=== PATIENT | female | born 1970 | race African-American/Black ===

== ENCOUNTER 2016-12-27 20:38 | Emergency (ER) | payer OTHER ==
[~2016-12-27] VITALS: Ht 162.6 cm; Wt 108.9 kg
[~2016-12-27 20:38] MED LIST: ALBU18HF IH; AZIT250T PO; CLON2TAB2 PO; CYCL-331 PO; DICY20TA30 PO; DIPH25CA58 PO; ESTR0.5T PO; GABA-585 PO; HYDR-971 PO; LISI1TAB5 PO; PANT40TA3 PO; PERM324. MC; PRED20TA PO; PRED50TA PO; PROM118S2 PO; SULF1TAB23 PO
--- NOTE | 2016-12-27 20:59 | ED.ADGEN ---
Past History Past Medical History: Anxiety, Asthma, Bipolar, Depression, GERD, Hypertension , Other Past Surgical History: Appendectomy, Cholecystectomy, Hysterectomy, Other Alcohol Use: None Drug Use: None Adult General Chief Complaint Chief Complaint " I got this sore spot on my abdomen.. down here on Lt. " and I ve just felt off today.." Mrs. Paz Hernandez is a 46 yr old female with an abrasion on panus on Lt.. Pt. reports episodes of diarrhea and malaise, and nausea. Pt. denies any travel, ill contacts or trauma. Patient normally follows with Dr. Kaela Hernandez patient has chronic problems with anxiety, asthma, bipolar disorder, depression, GERD, hypertension, and chronic fibromyalgia pain. Patient has had previous hysterectomy and cholecystectomy. Patient reports history of immunosuppression. Patient follows with Dr. Kaela Hernandez HPI HPI Patient is a 46 year old female who presents with above hx and complaints. Review of Systems Review of Systems Constitutional: Subjective complaints of fever or chills [] Eyes: Denies change in visual acuity, redness, or eye pain [] HENT: Denies nasal congestion or sore throat [] Respiratory: Denies cough or shortness of breath [] Cardiovascular: No additional information not addressed in HPI [] GI: Plaints of generalized abdominal pain, and diarrhea [] : Denies dysuria or hematuria [] Musculoskeletal: Complaints of generalized malaise and myalgia, chronic back pain or joint pain [] Integument: Denies rash or skin lesions [] Neurologic: Denies headache, focal weakness or sensory changes [] Endocrine: Denies polyuria or polydipsia [] Family History Family History Noncontributory Current Medications Current Medications Current Medications Medications (Trade) Dose Ordered Sig/Jennifer Start Time Stop Time Status Last Admin Dose Admin Famotidine (Pepcid) 20 mg 1X ONCE 12/27/16 21:30 12/27/16 21:31 DC 12/27/16 21:50 20 MG Ketorolac Tromethamine (Toradol) 30 mg 1X ONCE 12/27/16 21:30 12/27/16 21:31 DC 12/27/16 21:49 30 MG Ondansetron HCl (Zofran) 8 mg 1X ONCE 12/27/16 21:30 12/27/16 21:31 DC 12/27/16 21:50 8 MG Orphenadrine Citrate (Norflex) 60 mg 1X ONCE 12/27/16 21:30 12/27/16 21:31 DC 12/27/16 21:54 60 MG Potassium Chloride (KCl Oral Soln) 40 meq 1X ONCE 12/27/16 22:45 12/27/16 22:46 DC 12/27/16 22:45 40 MEQ Sodium Chloride 1,000 ml @ 1,000 mls/hr Q1H 12/27/16 21:30 12/27/16 22:29 DC 12/27/16 21:49 1,000 MLS/HR Allergies Allergies Allergies Coded Allergies Type Severity Reaction Last Updated Verified hydrocodone Allergy Intermediate rash 08/18/16 Yes oxycodone Allergy Intermediate hives/itch/and n/v. 07/03/15 Yes tramadol Allergy Intermediate hives 07/03/15 Yes codeine Allergy Unknown 01/19/16 Yes Physical Exam Physical Exam Constitutional: Obese middle-aged lady with, not in acute distress, non-toxic appearance. [] HENT: Normocephalic, atraumatic, bilateral external ears normal, oropharynx moist, no oral exudates, nose normal. [] Eyes: PERRLA, EOMI, conjunctiva normal, no discharge. [] Neck: Normal range of motion, no tenderness, supple, no stridor. [] Cardiovascular:Heart rate regular rhythm, no murmur [] Lungs & Thorax: Bilateral breath sounds equal with scattered wheezes auscultation [] Abdomen: Bowel sounds normal, soft, no tenderness, no masses, no pulsatile masses. [Obese. Old surgery scars. Abraded area at left pannus-appears to be rubbed by her pants or a belted Skin: Warm, dry, no erythema, no rash. [] Back: No tenderness, no CVA tenderness. [] Extremities: No tenderness, no cyanosis, no clubbing, ROM intact, trace ankle edema. [] Neurologic: Alert and oriented X 3, normal motor function, normal sensory function, no focal deficits noted. [] Psychologic: Affect anxious judgement normal, mood normal. [] Current Patient Data Lab Results Laboratory Tests Test 12/27/16 21:40 White Blood Count 5.5 x10^3/uL (4.0-11.0) Red Blood Count 4.57 x10^6/uL (3.50-5.40) Hemoglobin 13.3 g/dL (12.0-15.5) Hematocrit 38.5 % (36.0-47.0) Mean Corpuscular Volume 84 fL (79-100) Mean Corpuscular Hemoglobin 29 pg (25-35) Mean Corpuscular Hemoglobin Concent 35 g/dL (31-37) Red Cell Distribution Width 14.6 % (11.5-14.5) H Platelet Count 277 x10^3/uL (140-400) Neutrophils (%) (Auto) 50 % (31-73) Lymphocytes (%) (Auto) 40 % (24-48) Monocytes (%) (Auto) 7 % (0-9) Eosinophils (%) (Auto) 3 % (0-3) Basophils (%) (Auto) 1 % (0-3) Neutrophils # (Auto) 2.7 x10^3uL (1.8-7.7) Lymphocytes # (Auto) 2.2 x10^3/uL (1.0-4.8) Monocytes # (Auto) 0.4 x10^3/uL (0.0-1.1) Eosinophils # (Auto) 0.1 x10^3/uL (0.0-0.7) Basophils # (Auto) 0.1 x10^3/uL (0.0-0.2) Prothrombin Time 10.2 SEC (9.4-11.4) Prothrombin Time INR 1.0 (0.9-1.1) PTT 28 SEC (23-33) Urine Collection Type Unknown Urine Color Yellow Urine Clarity Clear Urine pH 7.0 Urine Specific [place] 1.015 Urine Protein Neg (NEG-TRACE) Urine Glucose (UA) Neg mg/dL (NEG) Urine Ketones (Stick) Neg mg/dL (NEG) Urine Blood Trace (NEG) Urine Nitrite Neg (NEG) Urine Bilirubin Neg (NEG) Urine Urobilinogen Dipstick 0.2 mg/dL (0.2 mg/dL) Urine Leukocyte Esterase Neg (NEG) Urine RBC Occ /HPF (0-2) Urine WBC Occ /HPF (0-4) Urine Squamous Epithelial Cells Mod /LPF Urine Bacteria Few /HPF (0-FEW) Sodium Level 141 mmol/L (136-145) Potassium Level 3.0 mmol/L (3.5-5.1) L Chloride Level 102 mmol/L (98-107) Carbon Dioxide Level 29 mmol/L (21-32) Anion Gap 10 (6-14) Blood Urea Nitrogen 15 mg/dL (7-20) Creatinine 1.1 mg/dL (0.6-1.0) H Estimated GFR (Cockcroft-Gault) 65.0 BUN/Creatinine Ratio 14 (6-20) Glucose Level 95 mg/dL (70-99) Calcium Level 8.9 mg/dL (8.5-10.1) Total Bilirubin 0.2 mg/dL (0.2-1.0) Aspartate Amino Transferase (AST) 15 U/L (15-37) Alanine Aminotransferase (ALT) 24 U/L (14-59) Alkaline Phosphatase 75 U/L (46-116) Total Protein 8.3 g/dL (6.4-8.2) H Albumin 3.5 g/dL (3.4-5.0) Albumin/Globulin Ratio 0.7 (1.0-1.7) L Urine Opiates Screen Neg (NEG) Urine Methadone Screen Neg (NEG) Urine Barbiturates Neg (NEG) Urine Phencyclidine Screen Neg (NEG) Urine Amphetamine/Methamphetamine Neg (NEG) Urine Benzodiazepines Screen Neg (NEG) Urine Cocaine Screen Neg (NEG) Urine Cannabinoids Screen Neg (NEG) Urine Ethyl Alcohol Neg (NEG) EKG EKG [] Radiology/Procedures Radiology/Procedures My interpretation of acute abdomen film shows previous surgical clips. Nonspecific bowel gas pattern. No free air under the diaphragm.[] Course & Med Decision Making Course & Med Decision Making Pertinent Labs and Imaging studies reviewed. (See chart for details) Patient maintain a clear fluid diet for 48 hours. No solid or milk products clear fluids only push fruit juices. Follow-up primary care. Take over-the- counter Tylenol and ibuprofen. Return if any concerns. [] Final Impression Final Impression 1. Viral syndrome 2. Hypokalemia[] Problems: Dragon Disclaimer Dragon Disclaimer This electronic medical record was generated, in whole or in part, using a voice recognition dictation system. VALORIE HUGHES MD Dec 27, 2016 20:59
[2016-12-27] MEDS ORDERED: KETOROLAC 30 MG/ML VIAL. IV ONE (21:30)
[2016-12-27] MEDS ORDERED: IV NORMAL SALINE 1,000ML 1,000 ML IV SCH (21:30)
[2016-12-27] MEDS ORDERED: FAMOTIDINE 20 MG/2 ML VIAL IVP ONE (21:30)
[2016-12-27] MEDS ORDERED: ONDANSETRON PF 4 MG/2 ML VIAL. IV ONE (21:30)
[2016-12-27] MEDS ORDERED: ORPHENADRINE CITRATE 60 MG/2 ML VIAL. IM ONE (21:30)
[2016-12-27 22:14] LABS: BASO # 0.1 x10^3/uL (0.0-0.2); BASO % 1 % (0-3); EOS # 0.1 x10^3/uL (0.0-0.7); EOS % 3 % (0-3); HEMATOCRIT 38.5 % (36.0-47.0); HEMOGLOBIN 13.3 g/dL (12.0-15.5); LYMPH # 2.2 x10^3/uL (1.0-4.8); LYMPH % 40 % (24-48); MEAN CORPUSCULAR HEMOGLOBIN 29 pg (25-35); MEAN CORPUSCULAR HGB CONC 35 g/dL (31-37); MEAN CORPUSCULAR VOLUME 84 fL (79-100); MONO # 0.4 x10^3/uL (0.0-1.1); MONO % 7 % (0-9); NEUT # 2.7 x10^3uL (1.8-7.7); NEUT % 50 % (31-73); PLATELET COUNT 277 x10^3/uL (140-400); RED BLOOD COUNT 4.57 x10^6/uL (3.50-5.40); RED CELL DISTRIBUTION WIDTH 14.6 % (11.5-14.5); WHITE BLOOD COUNT 5.5 x10^3/uL (4.0-11.0)
[2016-12-27 22:16] LABS: ALBUMIN 3.5 g/dL (3.4-5.0); ALBUMIN/GLOBULIN RATIO 0.7 (1.0-1.7); AMPHETAMINE/METHAMPHETAMINE NEG (NEG); BARBITURATES NEG (NEG); BENZODIAZEPINES NEG (NEG); CALCIUM 8.9 mg/dL (8.5-10.1); CANNABINOIDS NEG (NEG); COCAINE NEG (NEG); CREATININE 1.1 mg/dL (0.6-1.0); METHADONE NEG (NEG); OPIATES NEG (NEG); PHENCYCLIDINE NEG (NEG); TOTAL BILIRUBIN 0.2 mg/dL (0.2-1.0); TOTAL PROTEIN 8.3 g/dL (6.4-8.2)
[2016-12-27 22:41] LABS: BILIRUBIN,URINE NEG (NEG); CLARITY,URINE CLEAR; COLOR,URINE YELLOW; GLUCOSE,URINE NEG (NEG)
[2016-12-27 22:42] LABS: NITRITE,URINE NEG (NEG); UROBILINOGEN,URINE 0.2 mg/dL (0.2 mg/dL)
[2016-12-27 22:43] LABS: BACTERIA,URINE FEW /HPF (0-FEW); RBC,URINE OCC /HPF (0-2); SQUAMOUS EPITHELIAL CELL,UR MOD /LPF; WBC,URINE OCC /HPF (0-4)
[2016-12-27 22:45] VITALS: BP 142/86
[2016-12-27] MEDS ORDERED: POTASSIUM CHLORIDE 20 MEQ/15 ML ORAL LIQUID. PO ONE (22:45)
--- NOTE | 2016-12-28 08:38 | RAD ---
Acute abdominal series with single view chest 12/27/2016 Indication: Left-sided chest pain and abdominal pain Comparison: Abdominal radiograph 02/10/2014, 01/25/2009 Technique: Frontal view the chest, upright view the abdomen and a supine view the abdomen are provided. Findings: The cardiomediastinal silhouette is within normal limits. There are no pleural effusions. No pulmonary vascular congestion is noted. There is no pneumothorax. The lungs are clear. There is no free intraperitoneal air. Cholecystectomy clips are identified in the right upper quadrant. No evidence for organomegaly. Small and large bowel loops are normal in caliber. No suspicious calcifications are identified. Phleboliths are identified within the pelvis. No differential air-fluid levels are noted. Visualized osseous structures are within normal limits. Impression: 1. No acute cardiac pulmonary process. 2. Nonobstructive bowel gas pattern.
== END 2016-12-27 23:08 | disposition home or self-care (01) ==
LOC: ER 20:38
DX: B34.9 Viral infection, unspecified (principal); E87.6 Hypokalemia; K21.9 Gastro-esophageal reflux disease without esophagitis; I10 Essential (primary) hypertension; J45.909 Unspecified asthma, uncomplicated; M79.7 Fibromyalgia; Z90.49 Acquired absence of other specified parts of digestive tract; Z90.710 Acquired absence of both cervix and uterus; Z88.5 Allergy status to narcotic agent; Z88.6 Allergy status to analgesic agent
CPT/HCPCS: 36415; 74022; 80053; 80307; 81001; 85025; 85610; 85730; 96361; 96372; 96374; 96375; 99285; J1885; J2360; J2405; S0028; G0479; J7030

== ENCOUNTER 2017-03-19 19:37 | Emergency (ER) | payer OTHER ==
[~2017-03-19] VITALS: Ht 162.6 cm; Wt 100.7 kg
[2017-03-19 19:37] VITALS: BP 136/85
[2017-03-19 20:28] LABS: BILIRUBIN,URINE NEG (NEG); CLARITY,URINE CLEAR; COLOR,URINE YELLOW; GLUCOSE,URINE NEG (NEG); UROBILINOGEN,URINE 0.2 mg/dL (0.2 mg/dL)
[2017-03-19 20:29] LABS: BACTERIA,URINE FEW /HPF (0-FEW); NITRITE,URINE NEG (NEG); RBC,URINE OCC /HPF (0-2); SQUAMOUS EPITHELIAL CELL,UR FEW /LPF; WBC,URINE OCC /HPF (0-4)
[2017-03-19] MEDS ORDERED: KETOROLAC 60 MG/2 ML VIAL. IM ONE (21:15)
[2017-03-19] MEDS ORDERED: ORPHENADRINE CITRATE 60 MG/2 ML VIAL. IM ONE (21:15)
[2017-03-19] MEDS ORDERED: ORPH-16 PO (21:18)
[2017-03-19] MEDS ORDERED: NAPR-677 PO (21:18)
--- NOTE | 2017-03-19 21:18 | PHYS DOC ---
Past History Past Medical History: Anxiety, Asthma, Bipolar, Depression, GERD, Hypertension , Other Past Surgical History: Appendectomy, Cholecystectomy, Hysterectomy, Other Additional Smoking Information: Vapes Alcohol Use: None Drug Use: None Adult General Chief Complaint Chief Complaint: BACK PAIN - NO INJURY HPI HPI Patient is a 46 year old female who presents with left back stain. Her disabled parents have moved in with her and she was helping them at home and 2 days pulled her left back. She has had pain since. No rash. No fever. No urinary complaints. No nausea vomiting or diarrhea. No chest pain, difficulty breathing. No recent fever or illness or cough. No recent travel. No shortness of air. No saddle anesthesia; no numbness, tingling or weakness of upper or lower extremities, no bowel or bladder incontinence or changes. Review of Systems Review of Systems Constitutional: Denies fever or chills Eyes: Denies change in visual acuity, redness, or eye pain HENT: Denies nasal congestion or sore throat Respiratory: Denies cough or shortness of breath Cardiovascular: No chest pain GI: Denies abdominal pain, nausea, vomiting, bloody stools or diarrhea : Denies dysuria or hematuria Musculoskeletal: POS back pain but no joint pain Integument: Denies rash or skin lesions Neurologic: Denies headache, focal weakness or sensory changes All other systems were reviewed and found to be within normal limits, except as documented in this note. Allergies Allergies Allergies Coded Allergies Type Severity Reaction Last Updated Verified hydrocodone Allergy Intermediate rash 08/18/16 Yes oxycodone Allergy Intermediate hives/itch/and n/v. 07/03/15 Yes tramadol Allergy Intermediate hives 07/03/15 Yes codeine Allergy Unknown 01/19/16 Yes Physical Exam Physical Exam Constitutional: Well developed, well nourished, no acute distress, non-toxic appearance. HENT: Normocephalic, atraumatic, bilateral external ears normal, oropharynx moist, no oral exudates, nose normal. Eyes: PERRLA, EOMI, conjunctiva normal, no discharge. Neck: Normal range of motion, no tenderness, supple, no stridor. Cardiovascular:Heart rate regular rhythm, no murmur Lungs & Thorax: Bilateral breath sounds clear to auscultation. No rales, rhonchi or wheezing. Tenderness posterior left flank area over latissimus dorsi. tender to touch. No rash or skin changes. No crepitance or subcutaneous emphysema. Abdomen: Bowel sounds normal, soft, no tenderness, no masses, no pulsatile masses. Skin: Warm, dry, no erythema, no rash. Back: left parathoracic muscle tenderness, no CVA tenderness. Extremities: No tenderness, no cyanosis, no clubbing, ROM intact, no edema. Neurologic: Alert and oriented X 3, normal motor function, normal sensory function, no focal deficits noted. Psychologic: Affect normal, judgement normal, mood normal. Current Patient Data Vital Signs Vital Signs Date Time Temp Pulse Resp B/P (MAP) Pulse Ox O2 Delivery O2 Flow Rate FiO2 03/19/17 19:37 97.4 74 20 96 Room Air BP 136/85 Lab Results Laboratory Tests Test 03/19/17 19:45 Urine Collection Type Void Urine Color Yellow Urine Clarity Clear Urine pH 6.0 Urine Specific [place] 1.020 Urine Protein Neg (NEG-TRACE) Urine Glucose (UA) Neg mg/dL (NEG) Urine Ketones (Stick) Neg mg/dL (NEG) Urine Blood Neg (NEG) Urine Nitrite Neg (NEG) Urine Bilirubin Neg (NEG) Urine Urobilinogen Dipstick 0.2 mg/dL (0.2 mg/dL) Urine Leukocyte Esterase Neg (NEG) Urine RBC Occ /HPF (0-2) Urine WBC Occ /HPF (0-4) Urine Squamous Epithelial Cells Few /LPF Urine Bacteria Few /HPF (0-FEW) Course & Med Decision Making Course & Med Decision Making Patient with muscle strain. no evidence of zoster. No evidence of underlying lung, cardiac or abdominal pathology. She has pain with any movement of that left upper body. She has a ride she states. UA clear (no protein); Toradol IM and Norflex IM. Her KTRACS with monthly clonazepam activity and last hydrocodone 10/12/16 #20 and 10/13/16 #5. I have spoken with the patient and/or caregivers. I have explained the patient' s condition, diagnosis and treatment plan based on the information available to me at this time. I have answered the patient's and/or caregiver's questions and addressed any concerns. The patient and/or caregivers have as good an understanding of the patient's diagnosis, condition and treatment plan as can be expected at this point. The patient's condition is stable and appropriate for discharge from the emergency department. The patient will pursue further outpatient evaluation with the primary care physician or other designated or consulting physician as outlined in the discharge instructions. The patient and/or caregivers are agreeable to this plan of care and follow-up instructions have been explained in detail. The patient and/or caregivers have received these instructions in written format and have expressed an understanding of the discharge instructions. The patient and/or caregivers are aware that any significant change in condition or worsening of symptoms should prompt an immediate return to this or the closest emergency department or a call to 911. Dragon Disclaimer Dragon Disclaimer This electronic medical record was generated, in whole or in part, using a voice recognition dictation system. Departure Departure: Impression: Primary Impression: Musculoskeletal back pain Additional Impression: Muscle spasm Disposition: 01 HOME, SELF-CARE Condition: STABLE Referrals: JONATHON JACKSON MD (PCP) Patient Instructions: Thoracic Strain Additional Instructions: YOU WERE GIVEN A PAIN SHOT AND MUSCLE RELAXER SHOT HERE IN THE ER; DO NOT DRIVE FOR THE NEXT 6 HOURS. Scripts Orphenadrine Citrate (ORPHENADRINE CITRATE) 100 Mg Tablet.er 1 TAB PO BID Y for MUSCLE SPASMS, #30 TAB 1 Refill Prov: CECILIO CREWS MD 03/19/17 Naproxen Sodium (NAPROXEN SODIUM) 550 Mg Tablet 1 TAB PO BID, #30 TAB Prov: CECILIO CREWS MD 03/19/17 Problem Qualifiers CECILIO CREWS MD Mar 19, 2017 21:18
== END 2017-03-19 21:40 | disposition home or self-care (01) ==
LOC: ER 19:37
DX: M62.830 Muscle spasm of back (principal); J45.909 Unspecified asthma, uncomplicated; K21.9 Gastro-esophageal reflux disease without esophagitis; I10 Essential (primary) hypertension; Z90.49 Acquired absence of other specified parts of digestive tract; Z90.710 Acquired absence of both cervix and uterus; F17.200 Nicotine dependence, unspecified, uncomplicated; Z88.5 Allergy status to narcotic agent; Z88.6 Allergy status to analgesic agent
CPT/HCPCS: 81001; 96372; 99284; J1885; J2360

== ENCOUNTER 2017-05-24 16:07 | Emergency (ER) | payer OTHER ==
[~2017-05-24 16:07] MED LIST changes: +NAPR-677 PO; +ORPH-16 PO
[2017-05-24 17:15] LABS: BILIRUBIN,URINE NEG (NEG); CLARITY,URINE CLEAR; COLOR,URINE YELLOW; GLUCOSE,URINE NEG (NEG); NITRITE,URINE NEG (NEG); UROBILINOGEN,URINE 0.2 mg/dL (0.2 mg/dL)
[2017-05-24 17:16] LABS: BACTERIA,URINE 0 /HPF (0-FEW); SQUAMOUS EPITHELIAL CELL,UR MOD /LPF
[2017-05-24] MEDS ORDERED: IV NORMAL SALINE 1,000ML 1,000 ML IV ONE (17:30)
--- NOTE | 2017-05-24 17:39 | PHYS DOC ---
Past History Past Medical History: Anxiety, Depression, Diabetes, Hypertension, Other Past Surgical History: Appendectomy, Cholecystectomy, Hysterectomy Alcohol Use: None Drug Use: None Adult General Chief Complaint Chief Complaint: MULTIPLE COMPLAINTS HPI HPI Patient is a 46 year old F who presents with moderate 10/10 dull constant left lower quadrant abdominal pain over the past 3 days. Her symptoms are associated with nausea and watery stools. She states that 3 days ago at the onset of her pain she had increased urination and pain with urination. These symptoms improved with oral hydration. She states that her pain radiates to the low back on both the right and left side. She also describes vaginal discharge that started several days ago. He last noticed this discharge last night. She denies vaginal discomfort and has had a hysterectomy. She denies any other associated symptoms at this time. She denies any other exacerbating or relieving factors. Review of Systems Review of Systems Constitutional: Denies fever or chills [] Eyes: Denies change in visual acuity, redness, or eye pain [] HENT: Mild nasal congestion Respiratory: Denies cough or shortness of breath [] Cardiovascular: No additional information not addressed in HPI [] GI: Negative except history of present illness : Denies dysuria or hematuria [] Musculoskeletal: Denies back pain or joint pain [] Integument: Denies rash or skin lesions [] Neurologic: Denies headache, focal weakness or sensory changes [] Endocrine: Denies polyuria or polydipsia [] All other systems were reviewed and found to be within normal limits, except as documented in this note. Family History Family History No pertinent family medical history was reported Current Medications Current Medications Current Medications Medications (Trade) Dose Ordered Sig/Jennifer Start Time Stop Time Status Last Admin Dose Admin Ketorolac Tromethamine (Toradol) 30 mg 1X ONCE 05/24/17 17:45 05/24/17 17:46 Ondansetron HCl (Zofran) 4 mg 1X ONCE 05/24/17 17:45 05/24/17 17:46 Sodium Chloride 1,000 ml @ 1,000 mls/hr 1X ONCE 05/24/17 17:30 05/24/17 18:29 Allergies Allergies Allergies Coded Allergies Type Severity Reaction Last Updated Verified hydrocodone Allergy Intermediate rash 08/18/16 Yes oxycodone Allergy Intermediate hives/itch/and n/v. 07/03/15 Yes tramadol Allergy Intermediate hives 07/03/15 Yes codeine Allergy Unknown 01/19/16 Yes Physical Exam Physical Exam Constitutional: Well developed, well nourished, no acute distress, non-toxic appearance. [] HENT: Normocephalic, atraumatic Eyes: EOMI, conjunctiva normal, no discharge. [] Neck: Normal range of motion, no tenderness, supple, no stridor. [] Cardiovascular:Heart rate regular rhythm, no murmur [] Lungs & Thorax: Bilateral breath sounds clear to auscultation [] Abdomen: Bowel sounds normal, soft, no masses, no pulsatile masses. [] Mild left lower quadrant tenderness to palpation. : Exam deferred Skin: Warm, dry, no erythema, no rash. [] Back: No tenderness, no CVA tenderness. [] Extremities: No tenderness, no cyanosis, no clubbing, ROM intact, no edema. [] Neurologic: Alert and oriented X 3, normal motor function, normal sensory function, no focal deficits noted. [] Psychologic: Affect normal, judgement normal, anxious. Current Patient Data Vital Signs Vital Signs Date Time Temp Pulse Resp B/P (MAP) Pulse Ox O2 Delivery O2 Flow Rate FiO2 05/24/17 16:25 98.8 73 20 95 Room Air Lab Results Laboratory Tests Test 05/24/17 16:30 Urine Collection Type Unknown Urine Color Yellow Urine Clarity Clear Urine pH 6.0 Urine Specific [place] 1.015 Urine Protein Neg (NEG-TRACE) Urine Glucose (UA) Neg mg/dL (NEG) Urine Ketones (Stick) Neg mg/dL (NEG) Urine Blood Neg (NEG) Urine Nitrite Neg (NEG) Urine Bilirubin Neg (NEG) Urine Urobilinogen Dipstick 0.2 mg/dL (0.2 mg/dL) Urine Leukocyte Esterase Neg (NEG) Urine RBC 1-2 /HPF (0-2) Urine WBC 1-4 /HPF (0-4) Urine Squamous Epithelial Cells Mod /LPF Urine Bacteria 0 /HPF (0-FEW) Urine Mucus Mod /LPF EKG EKG [] Radiology/Procedures Radiology/Procedures [] Course & Med Decision Making Course & Med Decision Making Pertinent Labs and Imaging studies reviewed. (See chart for details) Paz is very concerned. Her care was transferred to Dr. Paredes at 1800 Signout obtained at 6 PM. Patient's clinically hemodynamically stable at this time. Patient's ER workup is been unremarkable. CT scan did not reveal any acute pathology. Patient reassessed: Abdomen soft mild diffuse tender no rebound or guarding NABS. No Sheriff sign, no tenderness to McBurney's point. Patient not present with any signs or symptoms of be consistent with an acute surgical abdomen. Patient is stable for discharge on Naprosyn and follow up with primary care physician for further outpatient evaluation. All results of been reviewed with the patient and she is in agreement with the current plan. Dragon Disclaimer Dragon Disclaimer This electronic medical record was generated, in whole or in part, using a voice recognition dictation system. Departure Departure: Impression: Primary Impression: Abdominal pain Disposition: HOME, SELF-CARE Condition: IMPROVED Referrals: JONATHON JACKSON MD (PCP) Patient Instructions: Abdominal Pain, Abdominal Pain (Nonspecific) Scripts Naproxen (NAPROXEN) 500 Mg Tablet 1 TAB PO BID, #30 TAB Prov: ILEANA PAREDES MD 05/24/17 CLAUDIA MICHELLE MD May 24, 2017 17:39 ILEANA PAREDES MD May 24, 2017 19:49
[2017-05-24] MEDS ORDERED: CONTRAST GIVEN MC PRN (17:45)
[2017-05-24] MEDS ORDERED: IOHEXOL 240 MG/ML 50ML VIAL. PO ONE (17:45)
[2017-05-24] MEDS ORDERED: IOHEXOL 300 MG/ML 75 ML VIAL. IV ONE (17:45)
[2017-05-24] MEDS ORDERED: KETOROLAC 30 MG/ML VIAL. IV ONE (17:45)
[2017-05-24] MEDS ORDERED: ONDANSETRON PF 4 MG/2 ML VIAL. IV ONE (17:45)
[2017-05-24 18:02] LABS: BASO # 0.1 x10^3/uL (0.0-0.2); BASO % 2 % (0-3); EOS % 1 % (0-3); HEMATOCRIT 39.9 % (36.0-47.0); HEMOGLOBIN 13.7 g/dL (12.0-15.5); LYMPH # 1.2 x10^3/uL (1.0-4.8); LYMPH % 36 % (24-48); MEAN CORPUSCULAR HEMOGLOBIN 30 pg (25-35); MEAN CORPUSCULAR HGB CONC 34 g/dL (31-37); MEAN CORPUSCULAR VOLUME 86 fL (79-100); MONO # 0.3 x10^3/uL (0.0-1.1); MONO % 10 % (0-9); NEUT # 1.7 x10^3uL (1.8-7.7); NEUT % 51 % (31-73); PLATELET COUNT 308 x10^3/uL (140-400); RED BLOOD COUNT 4.64 x10^6/uL (3.50-5.40); WHITE BLOOD COUNT 3.3 x10^3/uL (4.0-11.0)
[2017-05-24 18:12] LABS: ALBUMIN 3.4 g/dL (3.4-5.0); ALBUMIN/GLOBULIN RATIO 0.7 (1.0-1.7); CALCIUM 8.7 mg/dL (8.5-10.1); GFR 72.5; POTASSIUM 3.7 mmol/L (3.5-5.1); TOTAL BILIRUBIN 0.2 mg/dL (0.2-1.0); TOTAL PROTEIN 8.4 g/dL (6.4-8.2)
[2017-05-24] MEDS ORDERED: ACETAMINOPHEN 500 MG TABLET PO ONE (19:30)
--- NOTE | 2017-05-24 19:31 | RAD ---
CT ABD PELV W/ORAL IV CONTRAST dated 05/24/2017 6:42 PM Indication: Abdominal pain.[id number] Omni 300 75cc: Lower abdominal pain x 3 days. Hx: Appendectomy, cholecystectomy, hysterectomy. Old images sent from 01/25/09 for comparison.. Comparison: 01/25/2009 Technique: Contiguous axial imaging of the abdomen and pelvis performed after the administration of oral contrast and 75 cc Omnipaque 300. One or more of the following individualized dose reduction techniques were utilized for this examination: 1. Automated exposure control 2. Adjustment of the mA and/or kV according to patient size 3. Use of iterative reconstruction technique Findings: Limited images of lung bases show patchy and linear dependent opacities, likely atelectasis. Heart size upper limits of normal. No pleural or pericardial effusion. Well-defined low-density focus within the right lobe liver, most consistent with cyst. Liver is otherwise homogeneous. Biliary tree normal in caliber. The gallbladder is surgically absent. Spleen, pancreas, adrenal glands and kidneys are unremarkable. No hydronephrosis. Partially opacified GI tract is normal in caliber and contour. No focal bowel wall thickening. The appendix is not identified. No inflammatory changes in the right lower quadrant. No ascites or lymphadenopathy. Abdominal aorta normal in caliber. Images of pelvis show nondistended urinary bladder. Uterus is surgically absent. No free pelvic fluid or pelvic lymphadenopathy. Bone windows show no acute findings. Mild multilevel spondylosis. IMPRESSION: 1. No acute abnormality of abdomen or pelvis. 2. Status post cholecystectomy, hysterectomy and appendectomy. Electronically signed by: Sukh Collier MD (05/24/2017 7:28 PM) [facility]
[2017-05-24 19:34] LABS: % EOS 4 % (0-5); % LYMPHS 37 % (24-48); % MONOS 7 % (0-10); % SEGS 51 % (35-66)
[2017-05-24] MEDS ORDERED: NAPR-514 PO (19:49)
[2017-05-24 19:57] LABS: PLT ESTIMATE ADEQUATE (ADEQUATE)
[2017-05-24 20:00] VITALS: BP 141/69
[2017-05-24 20:31] LABS: STOMATOCYTES PRESENT
== END 2017-05-24 20:02 | disposition home or self-care (01) ==
LOC: ER 16:07
DX: R10.32 Left lower quadrant pain (principal); R19.7 Diarrhea, unspecified; R09.81 Nasal congestion; E11.9 Type 2 diabetes mellitus without complications; I10 Essential (primary) hypertension; Z90.49 Acquired absence of other specified parts of digestive tract; Z90.710 Acquired absence of both cervix and uterus; Z88.5 Allergy status to narcotic agent; Z88.6 Allergy status to analgesic agent
CPT/HCPCS: 36415; 74177; 80053; 81001; 83690; 85007; 85025; 96361; 96374; 96375; 99285; J1885; J2405; Q9966; Q9967; J7030

== ENCOUNTER 2017-06-25 19:13 | Emergency (ER) | payer OTHER ==
[~2017-06-25] VITALS: Ht 162.6 cm; Wt 108.9 kg
[2017-06-25 19:13] VITALS: BP 113/72
[~2017-06-25 19:13] MED LIST changes: +NAPR-514 PO
--- NOTE | 2017-06-25 19:24 | ED.ADGEN ---
Past History Past Medical History: Anxiety, Depression, Diabetes, Hypertension, Other Past Surgical History: Appendectomy, Cholecystectomy, Hysterectomy Alcohol Use: None Drug Use: None Adult General Chief Complaint Chief Complaint " I got this insect bite..."".. I started squeezing it... and now it really hurts on my Lt temporal..." HPI HPI Patient is a 46 year old female who presents with above hx and complaints of cellulitis Lt. side of forehead, No adenopathy. Has inflamed area, which appeared to be an insect bite 1 cm with surrounding injection. . Pt. no temporal artery tenderness. Pt. denies hx immunosuppression. No travel or ill contacts. Pt. does not remember last tetanus, but think less than 5 yrs. Review of Systems Review of Systems Constitutional: Denies fever or chills [] Eyes: Denies change in visual acuity, redness, or eye pain [] HENT: Denies nasal congestion or sore throat [] Respiratory: Denies cough or shortness of breath [] Cardiovascular: No additional information not addressed in HPI [] GI: Denies abdominal pain, nausea, vomiting, bloody stools or diarrhea [] : Denies dysuria or hematuria [] Musculoskeletal: Denies back pain or joint pain [] Integument: Denies rash or skin lesions, except[]complaints of Lt temporal cellulitis. Neurologic: Denies headache, focal weakness or sensory changes [] Endocrine: Denies polyuria or polydipsia [] All other systems were reviewed and found to be within normal limits, except as documented in this note. Family History Family History Noncontributory to presentation Current Medications Current Medications Current Medications Medications (Trade) Dose Ordered Sig/Jennifer Start Time Stop Time Status Last Admin Dose Admin Albuterol/ Ipratropium (Duoneb) 3 ml 1X ONCE 06/25/17 21:00 06/25/17 21:01 DC 06/25/17 20:33 3 ML Ceftriaxone Sodium (Rocephin Im) 1 gm 1X ONCE 06/25/17 20:30 06/25/17 20:31 DC 06/25/17 20:34 1 GM Ketorolac Tromethamine (Toradol) 60 mg 1X ONCE 06/25/17 20:30 06/25/17 20:31 DC 06/25/17 20:30 60 MG Tetanus/ Diphtheria Toxoids Adsorbed (Tenivac Vial) 0.5 ml ONCE ONCE 06/25/17 20:30 06/25/17 20:31 DC 06/25/17 20:36 0.5 ML Trimethoprim/ Sulfamethoxazole (Bactrim Ds) 1 tab 1X ONCE 06/25/17 20:30 06/25/17 20:31 DC 06/25/17 20:36 1 TAB Allergies Allergies Allergies Coded Allergies Type Severity Reaction Last Updated Verified hydrocodone Allergy Intermediate rash 08/18/16 Yes oxycodone Allergy Intermediate hives/itch/and n/v. 07/03/15 Yes tramadol Allergy Intermediate hives 07/03/15 Yes codeine Allergy Unknown 01/19/16 Yes Physical Exam Physical Exam Constitutional: Well developed, well nourished, no acute distress, non-toxic appearance. [] HENT: Normocephalic, left temporal cellulitis ,bilateral external ears normal, oropharynx moist, no oral exudates, nose normal. [] Eyes: PERRLA, EOMI, conjunctiva normal, no discharge. [] Neck: Normal range of motion, no tenderness, supple, no stridor. [] Cardiovascular:Heart rate regular rhythm, no murmur [] Lungs & Thorax: Bilateral breath sounds clear to auscultation [] Abdomen: Bowel sounds normal, soft, no tenderness, no masses, no pulsatile masses. [] Obese. Old surgery scars Skin: Warm, dry, no erythema, no rash. Cellulitis as per history of present illness Back: No tenderness, no CVA tenderness. [] Extremities: No tenderness, no cyanosis, no clubbing, ROM intact, no edema. [] Neurologic: Alert and oriented X 3, normal motor function, normal sensory function, no focal deficits noted. [] Psychologic: Affect anxious, judgement normal, mood normal. [] EKG EKG [] Radiology/Procedures Radiology/Procedures [] Course & Med Decision Making Course & Med Decision Making Pertinent Labs and Imaging studies reviewed. (See chart for details). A Bactrim DS twice a day for 7 days. Massage area Polysporin 4 times a day. Follow -up primary care. Return if any concerns. Tylenol and ibuprofen for pain. [] Final Impression Final Impression 1. Cellulitis[] Problems: Dragon Disclaimer Dragon Disclaimer This electronic medical record was generated, in whole or in part, using a voice recognition dictation system. VALORIE HUGHES MD Jun 25, 2017 19:24
[2017-06-25] MEDS ORDERED: BACI28.34 TP (20:00)
[2017-06-25] MEDS ORDERED: SULF1TAB24 PO (20:00)
[2017-06-25] MEDS ORDERED: TETANUS AND DIPHTHERIA TOX/PF 0.5 ML VIAL. VAX IM ONE (20:30)
[2017-06-25] MEDS ORDERED: SMZ/TMP 800/160MG TABLET. PO ONE (20:30)
[2017-06-25] MEDS ORDERED: KETOROLAC 60 MG/2 ML VIAL. IM ONE (20:30)
[2017-06-25] MEDS ORDERED: cefTRIAXone IM 1 GM VIAL IM ONE (20:30)
[2017-06-25] MEDS ORDERED: IPRATRPIUM/ALBUTEROL 0.5/2.5MG 3 ML NEBU. NEB ONE (21:00)
== END 2017-06-25 20:15 | disposition home or self-care (01) ==
LOC: ER 19:13
DX: L03.211 Cellulitis of face (principal); F41.9 Anxiety disorder, unspecified; F32.9 Major depressive disorder, single episode, unspecified; E11.9 Type 2 diabetes mellitus without complications; I10 Essential (primary) hypertension; Z88.5 Allergy status to narcotic agent; Z88.6 Allergy status to analgesic agent
CPT/HCPCS: 90471; 90714; 94640; 96372; 99284; J0696; J1885; J7620

== ENCOUNTER 2017-10-13 18:27 | Emergency (ER) | payer OTHER ==
[~2017-10-13] VITALS: Ht 162.6 cm; Wt 108.9 kg
[~2017-10-13 18:27] MED LIST changes: +BACI28.34 TP; -CLON2TAB2 PO; +CLON2TAB9 PO; -PROM118S2 PO; +PROM118S5 PO; +SULF1TAB24 PO
--- NOTE | 2017-10-13 18:30 | ED.ADGEN ---
Past History Past Medical History: Anxiety, Depression, Diabetes, Hypertension, Other Past Surgical History: Appendectomy, Cholecystectomy, Hysterectomy Alcohol Use: None Drug Use: None Adult General Chief Complaint Chief Complaint ".. I ve been going to [facility] for my care ... the started me on Keflex for my scalp infection.. but it been 3 days and I am not better..." HPI HPI Patient is a 46 year old female who presents with above hx and complaints scalp cellulitis and folliculitis. Can previously seen at [facility] approximately 3 days ago. Patient currently on Keflex.and a antibiotic ointment her scalp. Patient states she is up-to-date with vaccinations. No recent travel. No specific ill contacts. Patient is a known diabetic. Patient was previously instructed not to bear weight or until his cellulitis had improved. Patient presents with complaints of no improvement of her cellulitis after 2 days of therapy. No recent Review of Systems Review of Systems Constitutional: Denies fever or chills [] Eyes: Denies change in visual acuity, redness, or eye pain [] HENT: Denies nasal congestion or sore throat [] Respiratory: Denies cough or shortness of breath [] Cardiovascular: No additional information not addressed in HPI [] GI: Denies abdominal pain, nausea, vomiting, bloody stools or diarrhea [] : Denies dysuria or hematuria [] Musculoskeletal: Denies back pain or joint pain [] Integument: Denies rash or skin lesions []Hx of Cellulitis Neurologic: Denies headache, focal weakness or sensory changes [] Endocrine: Denies polyuria or polydipsia [] All other systems were reviewed and found to be within normal limits, except as documented in this note. Family History Family History Noncontributory Current Medications Current Medications Current Medications Medications (Trade) Dose Ordered Sig/Jennifer Start Time Stop Time Status Last Admin Dose Admin Ceftriaxone Sodium (Rocephin Im) 1 gm 1X ONCE 10/13/17 18:45 10/13/17 18:49 DC 10/13/17 18:59 1 GM Ketorolac Tromethamine (Toradol Im) 60 mg 1X ONCE 10/13/17 19:00 10/13/17 19:01 DC 10/13/17 18:59 60 MG Trimethoprim/ Sulfamethoxazole (Bactrim Ds) 1 tab 1X ONCE 10/13/17 19:00 10/13/17 19:01 DC 10/13/17 18:59 1 TAB Allergies Allergies Allergies Coded Allergies Type Severity Reaction Last Updated Verified hydrocodone Allergy Intermediate rash 08/18/16 Yes oxycodone Allergy Intermediate hives/itch/and n/v. 07/03/15 Yes tramadol Allergy Intermediate hives 07/03/15 Yes codeine Allergy Unknown 01/19/16 Yes Physical Exam Physical Exam Constitutional: Moderately acute distress, non-toxic appearance. [] HENT: Normocephalic, atraumatic, bilateral external ears normal, oropharynx moist, no oral exudates, nose normal. Folliculitis. And cellulitis of scalp. posterior scalp adenopathy. Eyes: PERRLA, EOMI, conjunctiva normal, no discharge. [] Neck: Normal range of motion, no tenderness, supple, no stridor. [] Cardiovascular:Heart rate regular rhythm, no murmur [] Lungs & Thorax: Bilateral breath sounds equal at apex with scattered wheezes throughout on auscultation [] Abdomen: Bowel sounds normal, soft, no tenderness, no masses, no pulsatile masses. [] Obese. Old surgery scars Skin: Warm, dry, no erythema, no rash. []Cellulitis Back: No tenderness, no CVA tenderness. [] Extremities: No tenderness, no cyanosis, no clubbing, ROM intact, no edema. [] Neurologic: Alert and oriented X 3, normal motor function, normal sensory function, no focal deficits noted. [] Psychologic: Affect anxious, judgement normal, mood normal. [] Current Patient Data Vital Signs Vital Signs Date Time Temp Pulse Resp B/P (MAP) Pulse Ox O2 Delivery O2 Flow Rate FiO2 10/13/17 20:35 60 18 142/73 (96) 98 Room Air 10/13/17 18:40 98.1 Lab Results Laboratory Tests Test 10/13/17 19:04 10/13/17 19:11 Glucose (Fingerstick) 80 mg/dL (70-99) Urine Collection Type Unknown Urine Color Yellow Urine Clarity Hazy Urine pH 5.5 Urine Specific [place] >=1.030 Urine Protein Trace (NEG-TRACE) Urine Glucose (UA) Neg mg/dL (NEG) Urine Ketones (Stick) Trace mg/dL (NEG) Urine Blood Neg (NEG) Urine Nitrite Neg (NEG) Urine Bilirubin Neg (NEG) Urine Urobilinogen Dipstick 0.2 mg/dL (0.2 mg/dL) Urine Leukocyte Esterase Neg (NEG) Urine RBC 1-2 /HPF (0-2) Urine WBC 1-4 /HPF (0-4) Urine Squamous Epithelial Cells Many /LPF Urine Bacteria Few /HPF (0-FEW) Urine Hyaline Casts Mod /HPF Urine Mucus Marked /LPF Urine Yeast Present /HPF Urine Test Negative (NEG) EKG EKG [] Radiology/Procedures Radiology/Procedures [] Course & Med Decision Making Course & Med Decision Making Pertinent Labs and Imaging studies reviewed. (See chart for details). Continue follow-up primary care. Continue to wash scalp every day. Apply antibiotic ointment Polysporin 4 times a day to scalp. Take Bactrim DS twice a day. Must not occlude scalp cap or wig. Follow up urine cultures. [] Final Impression Final Impression 1. Cellulitis-folliculitis 2. DM 3. UTI Dragon Disclaimer Dragon Disclaimer This electronic medical record was generated, in whole or in part, using a voice recognition dictation system. VALORIE HUGHES MD Oct 13, 2017 18:30
[2017-10-13] MEDS ORDERED: cefTRIAXone IM 1 GM VIAL IM ONE (18:45)
[2017-10-13] MEDS ORDERED: SULF1TAB24 PO (18:47)
[2017-10-13] MEDS ORDERED: KETOROLAC 60 MG/2 ML VIAL. IM ONE (19:00)
[2017-10-13] MEDS ORDERED: SMZ/TMP 800/160MG TABLET. PO ONE (19:00)
[2017-10-13 20:25] LABS: U PREG PATIENT NEGATIVE (NEG)
[2017-10-13 20:26] LABS: HYALINE CASTS, URINE MOD /HPF; YEAST,URINE PRESENT /HPF
[2017-10-13 20:27] LABS: BACTERIA,URINE FEW /HPF (0-FEW); BILIRUBIN,URINE NEG (NEG); CLARITY,URINE HAZY; COLOR,URINE YELLOW; GLUCOSE,URINE NEG (NEG); NITRITE,URINE NEG (NEG); SQUAMOUS EPITHELIAL CELL,UR MANY /LPF; UROBILINOGEN,URINE 0.2 mg/dL (0.2 mg/dL)
[2017-10-13 20:35] VITALS: BP 142/73
== END 2017-10-13 20:36 | disposition home or self-care (01) ==
LOC: ER 18:27
DX: L03.811 Cellulitis of head [any part, except face] (principal); L73.9 Follicular disorder, unspecified; E11.9 Type 2 diabetes mellitus without complications; N39.0 Urinary tract infection, site not specified; I10 Essential (primary) hypertension; F41.9 Anxiety disorder, unspecified; F32.9 Major depressive disorder, single episode, unspecified; Z88.5 Allergy status to narcotic agent; Z88.6 Allergy status to analgesic agent
CPT/HCPCS: 81001; 81025; 82947; 96372; 99284; J0696; J1885

== ENCOUNTER 2017-12-18 18:36 | Emergency (ER) | payer OTHER ==
[~2017-12-18] VITALS: Ht 162.6 cm; Wt 108.9 kg
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
[2017-12-18] MEDS ORDERED: CYCLOBENZAPRINE 10 MG TABLET. PO ONE (20:00)
[2017-12-18] MEDS ORDERED: ONDANSETRON ODT 4 MG TAB.RAPDIS PO ONE (20:00)
[2017-12-18] MEDS ORDERED: KETOROLAC 60 MG/2 ML VIAL. IM ONE (20:00)
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
[2017-12-18] MEDS ORDERED: CYCL-331 PO (20:44)
[2017-12-18 20:58] VITALS: BP 154/89
== END 2017-12-18 21:00 | disposition home or self-care (01) ==
LOC: ER 18:36
DX: M25.552 Pain in left hip (principal); G89.11 Acute pain due to trauma; E11.9 Type 2 diabetes mellitus without complications; I10 Essential (primary) hypertension; Z88.5 Allergy status to narcotic agent; Z88.6 Allergy status to analgesic agent; V49.49XA Driver injured in collision with other motor vehicles in traffic accident, initial encounter; Y93.89 Activity, other specified; Y92.488 Other paved roadways as the place of occurrence of the external cause; Y99.8 Other external cause status
CPT/HCPCS: 71046; 73502; 96372; 99284; J1885; Q0162

== ENCOUNTER 2017-12-23 18:39 | Emergency (ER) | payer OTHER ==
[~2017-12-23] VITALS: Ht 162.6 cm; Wt 109.8 kg
[2017-12-23 18:55] VITALS: BP 141/76
[2017-12-23] MEDS ORDERED: KETOROLAC 30 MG/ML VIAL. IM ONE (19:15)
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
== END 2017-12-23 19:10 | disposition home or self-care (01) ==
LOC: ER 18:39
DX: S16.1XXD Strain of muscle, fascia and tendon at neck level, subsequent encounter (principal); M54.6 Pain in thoracic spine; E11.9 Type 2 diabetes mellitus without complications; I10 Essential (primary) hypertension; Z88.5 Allergy status to narcotic agent; Z88.6 Allergy status to analgesic agent; V89.2XXD Person injured in unspecified motor-vehicle accident, traffic, subsequent encounter
CPT/HCPCS: 96372; 99283; J1885

== ENCOUNTER 2018-03-18 15:20 | Inpatient (IN) | payer OTHER ==
[~2018-03-18] VITALS: Ht 162.6 cm; Wt 118.0 kg
[~2018-03-18 15:20] MED LIST changes: -ALBU18HF IH; +ALBU2.5V8 IH; +HYDR-3165 PO; -HYDR-971 PO
[2018-03-18] MEDS ORDERED: ONDANSETRON PF 4 MG/2 ML VIAL. ONE (15:34)
--- NOTE | 2018-03-18 15:55 | EKG ---
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
[2018-03-18] MEDS ORDERED: KETOROLAC 30 MG/ML VIAL. ONE (16:02)
[2018-03-18 16:04] LABS: BASO % 0 % (0-3); EOS # 0.1 x10^3/uL (0.0-0.7); EOS % 2 % (0-3); LYMPH # 1.6 x10^3/uL (1.0-4.8); LYMPH % 50 % (24-48); MEAN CORPUSCULAR HEMOGLOBIN 29 pg (25-35); MEAN CORPUSCULAR HGB CONC 33 g/dL (31-37); MEAN CORPUSCULAR VOLUME 87 fL (79-100); MONO # 0.4 x10^3/uL (0.0-1.1); MONO % 13 % (0-9); NEUT # 1.1 x10^3uL (1.8-7.7); NEUT % 35 % (31-73); PLATELET COUNT 352 x10^3/uL (140-400); RED BLOOD COUNT 4.46 x10^6/uL (3.50-5.40); RED CELL DISTRIBUTION WIDTH 15.8 % (11.5-14.5); WHITE BLOOD COUNT 3.1 x10^3/uL (4.0-11.0)
[2018-03-18] MEDS ORDERED: KETOROLAC 15 MG/ML VIAL. IV ONE (16:20)
[2018-03-18] MEDS ORDERED: IPRATRPIUM/ALBUTEROL 0.5/2.5MG 3 ML NEBU. NEB ONE (16:20)
[2018-03-18] MEDS ORDERED: ASPIRIN 81 MG TAB.CHEW PO ONE (16:20)
[2018-03-18] MEDS ORDERED: ONDANSETRON PF 4 MG/2 ML VIAL. IV ONE (16:20)
[2018-03-18 16:25] LABS: ALBUMIN 3.5 g/dL (3.4-5.0); ALBUMIN/GLOBULIN RATIO 0.7 (1.0-1.7); CALCIUM 8.3 mg/dL (8.5-10.1); CREATININE 1.2 mg/dL (0.6-1.0); GFR 58.5; MAGNESIUM 2.1 mg/dL (1.8-2.4); POTASSIUM 3.8 mmol/L (3.5-5.1); TOTAL BILIRUBIN 0.3 mg/dL (0.2-1.0); TOTAL PROTEIN 8.3 g/dL (6.4-8.2)
--- NOTE | 2018-03-18 16:46 | RAD ---
AP portable chest 03/18/2018. Reason for exam: Shortness of breath for one day. Comparison is made with a study of 12/18/2017. No infiltrate or effusion is seen. Heart size and pulmonary vascularity appear normal. IMPRESSION: No acute disease. Electronically signed by: Alex Ambrocio Jr., MD (03/18/2018 4:41 PM) [facility] [place]
[2018-03-18] MEDS ORDERED: NITROGLYCERIN SUBLINGUAL 0.4 MG BOTTLE OF 25. SL PRN (17:00)
[2018-03-18] MEDS ORDERED: ONDANSETRON PF 4 MG/2 ML VIAL. IV PRN (17:00)
[2018-03-18] MEDS ORDERED: fentaNYL PF 250 MCG/5 ML VIAL IV ONE (17:10)
[2018-03-18 17:47] VITALS: BP 132/87
[2018-03-18] MEDS ORDERED: GABA300C8 PO (18:12)
[2018-03-18] MEDS ORDERED: ACETAMINOPHEN 325 MG TABLET PO PRN (18:15)
[2018-03-18] MEDS: diphenhydrAMINE HCL 25 MG CAPSULE PO PRN (18:28)
[2018-03-18] MEDS ORDERED: QUET50TA PO (18:36)
[2018-03-18] MEDS ORDERED: FLUO20CA8 PO (18:36)
[2018-03-18] MEDS ORDERED: POLYETHYLENE GLYCOL 3350 17 GM PACKET. PO SCH (19:00)
[2018-03-18 19:52] VITALS: BP 141/77
[2018-03-18] MEDS: CYCLOBENZAPRINE 10 MG TABLET. PO PRN (20:58)
[2018-03-18] MEDS: clonazePAM 2 MG TABLET PO SCH (20:58)
[2018-03-18] MEDS: QUEtiapine 50 MG TABLET. PO SCH (20:58)
[2018-03-18] MEDS: GABAPENTIN 300 MG CAPSULE. PO SCH (20:58)
[2018-03-18] MEDS: ACETAMINOPHEN 325 MG TABLET PO PRN (20:58)
[2018-03-18 23:22] VITALS: BP 123/78
[2018-03-19 06:34] LABS: BASO % 1 % (0-3); EOS # 0.1 x10^3/uL (0.0-0.7); EOS % 3 % (0-3); HEMATOCRIT 36.8 % (36.0-47.0); HEMOGLOBIN 12.5 g/dL (12.0-15.5); LYMPH # 1.6 x10^3/uL (1.0-4.8); LYMPH % 51 % (24-48); MEAN CORPUSCULAR HEMOGLOBIN 30 pg (25-35); MEAN CORPUSCULAR HGB CONC 34 g/dL (31-37); MEAN CORPUSCULAR VOLUME 88 fL (79-100); MONO # 0.4 x10^3/uL (0.0-1.1); MONO % 12 % (0-9); NEUT # 1.1 x10^3uL (1.8-7.7); NEUT % 33 % (31-73); PLATELET COUNT 324 x10^3/uL (140-400); RED BLOOD COUNT 4.19 x10^6/uL (3.50-5.40); RED CELL DISTRIBUTION WIDTH 15.2 % (11.5-14.5); WHITE BLOOD COUNT 3.2 x10^3/uL (4.0-11.0)
[2018-03-19 06:35] LABS: CALCIUM 8.5 mg/dL (8.5-10.1); CREATININE 1.2 mg/dL (0.6-1.0); GFR 58.5; POTASSIUM 3.8 mmol/L (3.5-5.1)
[2018-03-19 06:36] VITALS: BP 117/75
[2018-03-19] MEDS: CYCLOBENZAPRINE 10 MG TABLET. PO PRN (06:49)
[2018-03-19] MEDS: ACETAMINOPHEN 325 MG TABLET PO PRN (06:49)
[2018-03-19] MEDS: PANTOPRAZOLE 40 MG TABLET. PO SCH (08:36)
[2018-03-19] MEDS: clonazePAM 2 MG TABLET PO SCH ×4 (08:36→21:25)
[2018-03-19] MEDS: POLYETHYLENE GLYCOL 3350 17 GM PACKET. PO SCH (08:36)
[2018-03-19] MEDS: GABAPENTIN 300 MG CAPSULE. PO SCH ×3 (08:36→21:25)
[2018-03-19] MEDS ORDERED: LISINOPRIL 20 MG TABLET PO SCH (09:00)
[2018-03-19] MEDS ORDERED: hydroCHLOROthiazide 12.5 MG CAPSULE PO SCH (09:00)
[2018-03-19] MEDS ORDERED: FLUoxetine HCL 20 MG CAPSULE PO SCH (09:00)
[2018-03-19 11:27] VITALS: BP 154/75
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
[2018-03-19 12:29] LABS: COLOR,URINE STRAW
[2018-03-19 12:30] LABS: BACTERIA,URINE FEW /HPF (0-FEW); BILIRUBIN,URINE NEG (NEG); CLARITY,URINE HAZY; GLUCOSE,URINE NEG (NEG); NITRITE,URINE NEG (NEG); RBC,URINE 0 /HPF (0-2); SQUAMOUS EPITHELIAL CELL,UR FEW /LPF; UROBILINOGEN,URINE 0.2 mg/dL (0.2 mg/dL); WBC,URINE 0 /HPF (0-4)
[2018-03-19 12:39] LABS: INFLUENZA A PATIENT NEGATIVE (NEGATIVE); INFLUENZA B PATIENT NEGATIVE (NEGATIVE)
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
--- NOTE | 2018-03-19 14:32 | RAD ---
Bilateral lower extremity venous Doppler ultrasound History: Bilateral leg swelling. Poor mobility, on estrogen. Comparison: None. Procedure: Color flow Doppler, Doppler spectral analysis, and 2D images are obtained with and without compression in the area of the common femoral vein, superficial femoral vein - femoral vein junction, main femoral vein (superficial femoral vein) and popliteal vein. Veins of the proximal calf are also imaged. Findings: There is normal color flow, augmentation, and compressibility of all visualized vein segments. No evidence of deep venous thrombus is present. IMPRESSION: No evidence of right or left lower extremity deep venous thrombosis. Electronically signed by: Bebo Bailey MD (03/19/2018 2:28 PM) [facility]
[2018-03-19 15:01] VITALS: BP 127/79
[2018-03-19 19:49] VITALS: BP 143/82
[2018-03-19] MEDS: QUEtiapine 50 MG TABLET. PO SCH (21:25)
[2018-03-19 22:49] VITALS: BP 144/76
[2018-03-20] MEDS: ACETAMINOPHEN 325 MG TABLET PO PRN (03:18)
[2018-03-20] MEDS: ONDANSETRON PF 4 MG/2 ML VIAL. IV PRN ×2 (05:38→21:08)
[2018-03-20 05:53] VITALS: BP 110/69
[2018-03-20 06:47] LABS: HEMOGLOBIN 11.8 g/dL (12.0-15.5); RED BLOOD COUNT 3.97 x10^6/uL (3.50-5.40); RED CELL DISTRIBUTION WIDTH 15.6 % (11.5-14.5); WHITE BLOOD COUNT 3.1 x10^3/uL (4.0-11.0)
[2018-03-20 07:07] LABS: ALBUMIN/GLOBULIN RATIO 0.7 (1.0-1.7); C REACTIVE PROTEIN 4.5 mg/L (0-3.3); CALCIUM 8.3 mg/dL (8.5-10.1); CREATININE 1.1 mg/dL (0.6-1.0); GFR 64.7; POTASSIUM 4.2 mmol/L (3.5-5.1); TOTAL BILIRUBIN 0.2 mg/dL (0.2-1.0); TOTAL PROTEIN 7.3 g/dL (6.4-8.2)
[2018-03-20] MEDS: PANTOPRAZOLE 40 MG TABLET. PO SCH (07:50)
[2018-03-20] MEDS: clonazePAM 2 MG TABLET PO SCH ×4 (07:52→20:05)
[2018-03-20] MEDS: GABAPENTIN 300 MG CAPSULE. PO SCH ×3 (07:52→20:05)
[2018-03-20] MEDS: POLYETHYLENE GLYCOL 3350 17 GM PACKET. PO SCH ×2 (07:52→20:05)
[2018-03-20 11:03] VITALS: BP 129/81
[2018-03-20] MEDS ORDERED: MAGNESIUM CITRATE 296 ML SOLUTION. PO ONE (11:30)
[2018-03-20] MEDS ORDERED: SENNOSIDES 8.6 MG TABLET PO PRN (11:30)
[2018-03-20] MEDS ORDERED: SODIUM CHLORIDE 0.65% NASAL SPRAY 45ML BOTTLE. NS PRN (12:00)
[2018-03-20] MEDS: MAGNESIUM CITRATE 296 ML SOLUTION. PO SCH ×2 (13:45→17:32)
[2018-03-20 15:17] VITALS: BP 146/89
--- NOTE | 2018-03-20 16:10 | RAD ---
CT of the abdomen and pelvis without contrast. INDICATION: Abdominal pain, constipation. COMPARISON STUDY: CT of the abdomen and pelvis with contrast May 24, 2017. TECHNIQUE: Multidetector CT imaging of the abdomen and pelvis performed without the administration of IV contrast. Oral contrast was administered prior study. FINDINGS: Bilateral lung bases demonstrate no acute abnormality. Minimal contrast noted in the distal esophagus. Reflux not excluded. Small rounded hypodensity in the lateral right lobe of liver is unchanged in size with respect to exam from May 24, 2017. Patient has nonspecific attenuation characteristics. Spleen is unremarkable. Adrenal glands are unremarkable. Kidneys are unremarkable. Pancreas is grossly unremarkable. No evidence of bowel obstruction is seen. Increased stool is noted within the colon prominently seen involving the proximal colon extending from cecum to the splenic flexure. Small bowel is grossly unremarkable in appearance. No free fluid or free air is seen in the abdomen or pelvis. No acute osseous changes are identified. IMPRESSION: 1.Increased stool from the cecum through the splenic flexure. Findings could represent constipation. No gross evidence of a distal colonic obstruction is seen. However given exam limitations consider follow-up colonoscopy. 2. Small amount contrast noted in the distal esophagus. Correlate with clinical evidence of reflux. 3. Approximately 1 cm hypodensity, lateral right liver grossly unchanged. The appearance suggests a benign etiology , such as cyst CT DOSING PQRS STATEMENT: One or more of the following individualized dose reduction techniques were utilized for this examination: 1. Automated exposure control 2. Adjustment of the mA and/or kV according to patient size 3. Use of iterative reconstruction technique Electronically signed by: Alex Guzman MD (03/20/2018 4:05 PM) [id number]
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
--- NOTE | 2018-03-20 18:00 | CARD ---
MR#: [id number] Date of Study: 03/20/2018 Ordering Physician: REI PALACIOS, Referring Physician: ERNESTINA GÓMEZ, Tech: Usha Velasquez APPROVED REPORT EXAM: Two-dimensional and M-mode echocardiogram with Doppler and color Doppler. Other Information Quality : GoodHR: 60bpm INDICATION Hypertension/HCVD Chest Pain RISK FACTORS Hypertension Diabetes Asthma 2D DIMENSIONS RVDd3.1 (2.9-3.5cm)Left Atrium(2D)3.5 (1.6-4.0cm) IVSd1.0 (0.7-1.1cm)Aortic Root(2D)2.6 (2.0-3.7cm) LVDd4.9 (3.9-5.9cm)LVOT Diameter2.2 (1.8-2.4cm) PWd1.2 (0.7-1.1cm)LVDs3.4 (2.5-4.0cm) FS (%) 29.4 %SV62.2 ml LVEF(%)56.1 (>50%) Aortic Valve AoV Peak Junior.129.8cm/sAoV VTI30.8cm AO Peak GR.6.7mmHgLVOT Peak Junior.79.5cm/s LVOT VTI 18.51cmAO Mean GR.4mmHg DEV (VMAX)2.99jm6PPR (VTI)2.33cm2 Mitral Valve MV E Oofeyegp49.2cm/sMV DECEL [id number] MV A Skvdtcfk36.2cm/sE/A Ratio1.3 Pulmonary Valve PV Peak Ybzvcxhv14.1cm/sPV Peak Grad.3mmHg Tricuspid Valve TR P. Anpdqqnn105xk/sRAP [id number] TR Peak Gr.68qwIiXXSB66dkXp Pulmonary Vein S1 Llqwweyl61.9cm/sD2 Jaarxjtb59.6cm/s LEFT VENTRICLE The left ventricle is normal size. There is borderline concentric left ventricular hypertrophy. The l eft ventricular systolic function is normal and the ejection fraction is within normal range. The Eje ction Fraction is 50-55%. There is normal LV segmental wall motion. The left ventricular diastolic fu nction and filling is normal for age. RIGHT VENTRICLE The right ventricle is normal size. There is normal right ventricular wall thickness. The right ventr icular systolic function is normal. ATRIA The left atrium is mildly dilated. The right atrium size is normal. The interatrial septum is intact with no evidence for an atrial septal defect or patent foramen ovale as noted on 2-D or Doppler imagi ng. AORTIC VALVE The aortic valve is normal in structure and function. Doppler and Color Flow revealed no significant aortic regurgitation. There is no significant aortic valvular stenosis. MITRAL VALVE The mitral valve is normal in structure and function. There is no evidence of mitral valve prolapse. There is no mitral valve stenosis. Doppler and Color Flow revealed no mitral valve regurgitation note d. TRICUSPID VALVE The tricuspid valve is normal in structure and function. Doppler and Color Flow revealed trace tricus pid regurgitation. There is no tricuspid valve stenosis. PULMONIC VALVE The pulmonic valve is not well visualized. Doppler and Color Flow revealed mild pulmonic valvular reg urgitation. GREAT VESSELS The aortic root is normal in size. The IVC was not well visualized. PERICARDIAL EFFUSION There is no evidence of significant pericardial effusion. Critical Notification Critical Value: No <Conclusion> The left ventricular systolic function is normal and the ejection fraction is within normal range. Th e Ejection Fraction is 50-55%. There is normal LV segmental wall motion. Signed by : Trip Myers, Electronically Approved : 03/20/2018 17:58:24
[2018-03-20 19:51] VITALS: BP 128/79
[2018-03-20] MEDS: DOCUSATE SODIUM 100 MG CAPSULE PO SCH (20:05)
[2018-03-20] MEDS: QUEtiapine 50 MG TABLET. PO SCH (20:05)
[2018-03-20] MEDS: CYCLOBENZAPRINE 10 MG TABLET. PO PRN (20:05)
[2018-03-20] MEDS: diphenhydrAMINE HCL 25 MG CAPSULE PO PRN (20:06)
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
[2018-03-21 01:22] VITALS: BP 126/79
[2018-03-21] MEDS: ACETAMINOPHEN 325 MG TABLET PO PRN ×2 (03:45→13:01)
[2018-03-21] MEDS: diphenhydrAMINE HCL 25 MG CAPSULE PO PRN (03:45)
[2018-03-21 05:38] VITALS: BP 129/80
[2018-03-21 06:10] LABS: BASO % 1 % (0-3); EOS # 0.1 x10^3/uL (0.0-0.7); EOS % 3 % (0-3); HEMATOCRIT 36.5 % (36.0-47.0); HEMOGLOBIN 12.2 g/dL (12.0-15.5); LYMPH # 1.6 x10^3/uL (1.0-4.8); LYMPH % 45 % (24-48); MEAN CORPUSCULAR HEMOGLOBIN 30 pg (25-35); MEAN CORPUSCULAR HGB CONC 33 g/dL (31-37); MEAN CORPUSCULAR VOLUME 89 fL (79-100); MONO # 0.3 x10^3/uL (0.0-1.1); MONO % 10 % (0-9); NEUT # 1.4 x10^3uL (1.8-7.7); NEUT % 42 % (31-73); PLATELET COUNT 295 x10^3/uL (140-400); RED BLOOD COUNT 4.12 x10^6/uL (3.50-5.40); RED CELL DISTRIBUTION WIDTH 15.6 % (11.5-14.5); WHITE BLOOD COUNT 3.4 x10^3/uL (4.0-11.0)
[2018-03-21 06:24] LABS: CALCIUM 8.2 mg/dL (8.5-10.1); CREATININE 1.1 mg/dL (0.6-1.0); GFR 64.7; MAGNESIUM 2.5 mg/dL (1.8-2.4); POTASSIUM 4.2 mmol/L (3.5-5.1)
[2018-03-21] MEDS: POLYETHYLENE GLYCOL 3350 17 GM PACKET. PO SCH ×3 (08:36→09:27)
[2018-03-21] MEDS ORDERED: FLUTICASONE 50MCG/NASAL SPRAY 16GM BOTTLE. NS SCH (09:00)
[2018-03-21] MEDS ORDERED: FUROSEMIDE 40 MG/4 ML VIAL IVP ONE (09:00)
[2018-03-21] MEDS ORDERED: LOSARTAN 25 MG TABLET. PO SCH (09:00)
[2018-03-21] MEDS ORDERED: FENOFIBRATE NANOCRYSTALLIZED 145 MG TABLET PO SCH (09:00)
[2018-03-21 09:26] VITALS: BP 129/80
[2018-03-21] MEDS: GABAPENTIN 300 MG CAPSULE. PO SCH ×2 (09:26→13:01)
[2018-03-21] MEDS: clonazePAM 2 MG TABLET PO SCH ×2 (09:26→13:01)
[2018-03-21] MEDS: PANTOPRAZOLE 40 MG TABLET. PO SCH (09:26)
[2018-03-21] MEDS: DOCUSATE SODIUM 100 MG CAPSULE PO SCH (09:26)
[2018-03-21] MEDS ORDERED: FURO-68 PO ×2 (14:30→14:40)
[2018-03-21] MEDS ORDERED: POTA10TA10 PO (14:30)
[2018-03-21] MEDS ORDERED: DOCU-109 PO (14:31)
[2018-03-21] MEDS ORDERED: MAGN296S9 PO (14:31)
[2018-03-21] MEDS ORDERED: LOSA50TA86 PO (14:31)
[2018-03-21] MEDS ORDERED: POLY17PO5 PO (14:32)
[2018-03-21] MEDS ORDERED: POTA20TA4 PO (14:40)
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
== END 2018-03-21 15:20 | disposition home or self-care (01) | DRG 866 ==
LOC: ER 15:20 → OBSVTOIN 16:45 → 1 SOUTH 16:45
PROVIDERS: ADMIT Internal Medicine; ATTEND Internal Medicine
DX: B34.9 Viral infection, unspecified (principal); E87.1 Hypo-osmolality and hyponatremia; Z68.41 Body mass index [BMI] 40.0-44.9, adult; K59.00 Constipation, unspecified; D72.820 Lymphocytosis (symptomatic); E11.9 Type 2 diabetes mellitus without complications; E66.01 Morbid (severe) obesity due to excess calories; E78.5 Hyperlipidemia, unspecified; E87.6 Hypokalemia; F17.200 Nicotine dependence, unspecified, uncomplicated; F32.9 Major depressive disorder, single episode, unspecified; F41.9 Anxiety disorder, unspecified; I10 Essential (primary) hypertension; Z82.3 Family history of stroke; Z82.49 Family history of ischemic heart disease and other diseases of the circulatory system; Z90.710 Acquired absence of both cervix and uterus; Z90.49 Acquired absence of other specified parts of digestive tract
CPT/HCPCS: 36415; 71045; 74176; 80048; 80053; 80061; 81001; 82550; 83690; 83735; 83880; 84443; 84484; 85025; 85027; 85379; 85610; 85651; 86140; 86644; 86645; 86663; 86664; 87804; 93005; 93306; 93970; 94640; 96374; 96375; J1885; J1940; J2405; J3010; J7620; Q0163; 99285-25

== ENCOUNTER 2018-07-23 17:43 | Emergency (ER) | payer OTHER ==
[~2018-07-23] VITALS: Ht 162.6 cm; Wt 108.9 kg
[~2018-07-23 17:43] MED LIST changes: +DOCU-109 PO; +FLUO20CA8 PO; +FURO-68 PO; +GABA300C8 PO; +LOSA50TA86 PO; +MAGN296S9 PO; +POLY17PO5 PO; +POTA10TA10 PO; +POTA20TA4 PO; +QUET50TA PO
[2018-07-23] MEDS ORDERED: IV NORMAL SALINE 1,000ML 1,000 ML IV SCH (18:12)
[2018-07-23] MEDS ORDERED: ONDANSETRON PF 4 MG/2 ML VIAL. IV ONE (18:15)
--- NOTE | 2018-07-23 18:18 | PHYS DOC ---
Past History Past Medical History: Anxiety, Depression, Diabetes, Hypertension Past Surgical History: Appendectomy, Cholecystectomy, Hysterectomy, Tonsillectomy Smoking: Non-smoker Alcohol Use: Occasionally Drug Use: None Adult General Chief Complaint Chief Complaint: MULTIPLE COMPLAINTS [facility] Patient is 47-year-old female who presents with complaint of left-sided abdominal pain that started on . Patient states that pain is been about a 9 out of 10. She describes pain as cramping and at times sharp. She does admit to nausea and states that she feels like she's been running a fever stating that she has had hot and cold spells. Patient's appetite has been normal. She does indicate that she feels like her abdomen is bloated. She states that nothing improves the pain and states that movement worsens the pain.[] Review of Systems Review of Systems Constitutional: Denies fever or chills [] Respiratory: Denies cough or shortness of breath [] Cardiovascular: No additional information not addressed in HPI [] GI: Complains of abdominal pain with nausea. Denies vomiting or diarrhea [] : Denies dysuria or hematuria [] Musculoskeletal: Admits to mid back pain [] Integument: Denies rash or skin lesions [] All other systems were reviewed and found to be within normal limits, except as documented in this note. Allergies Allergies Allergies Coded Allergies Type Severity Reaction Last Updated Verified codeine Allergy Intermediate 03/19/18 Yes hydrocodone Allergy Intermediate rash 12/24/17 Yes oxycodone Allergy Intermediate hives/itch/and n/v. 12/24/17 Yes tramadol Allergy Intermediate hives 12/24/17 Yes Physical Exam Physical Exam Constitutional: Well developed, well nourished, no acute distress, non-toxic appearance. [] HENT: Normocephalic, atraumatic, bilateral external ears normal, oropharynx moist, no oral exudates, nose normal. [] Eyes: PERRLA, EOMI, conjunctiva normal, no discharge. [] Neck: Normal range of motion, no tenderness, supple, no stridor. [] Cardiovascular:Heart rate regular rhythm, no murmur [] Lungs & Thorax: Bilateral breath sounds clear to auscultation [] Abdomen: Bowel sounds normal, soft, with tenderness to palpation in the left lower, left mid and left upper abdomen. [] Skin: Warm, dry, no erythema, no rash. [] Extremities: No tenderness, no cyanosis, no clubbing, ROM intact. [] Neurologic: Alert and oriented X 3, no focal deficits noted. [] Current Patient Data Vital Signs Vital Signs Date Time Temp Pulse Resp B/P (MAP) Pulse Ox O2 Delivery O2 Flow Rate FiO2 07/23/18 18:08 97.8 67 18 96 Room Air EKG EKG EKG demonstrates normal sinus rhythm with rate of 63.[] Radiology/Procedures Radiology/Procedures [] Impressions: PROCEDURE: CT ABD PELV W/ IV CONTRST ONLY CT of the abdomen and pelvis with IV contrast 07/23/2018. Reason for exam: Lower abdominal pain and nausea for [address] images were made through the abdomen and pelvis using an infusion of 75 mL Omnipaque 300. No oral contrast was given. Exposure: One or more of the following individualized dose reduction techniques were utilized for this examination: 1. Automated exposure control 2. Adjustment of the mA and/or kV according to patient size 3. Use of iterative reconstruction technique. Comparison is made with a previous CT of 03/20/2018. FINDINGS: There is a small cyst laterally in the liver. No significant liver parenchymal abnormality is seen. The spleen appears normal. Both kidneys enhance with contrast. There is no apparent mass or obstruction. There is a small right adrenal nodule that does not appear changed from previous study. The adrenal glands otherwise show no abnormality. No pancreatic abnormality is seen. There is no apparent retroperitoneal or mesenteric adenopathy. No abdominal soft tissue mass or inflammatory process is seen. Images through the pelvis show no apparent abnormality of the distal ureters or bladder. The bladder was poorly distended. No pelvic or inguinal adenopathy is seen. There is no apparent pelvic mass or inflammatory process. An appendix is not seen, consistent with surgical history. IMPRESSION: No identified acute abnormality. Electronically signed by: Alex Ambrocio Jr., MD (07/23/2018 7:38 PM) [facility] Course & Med Decision Making Course & Med Decision Making Pertinent Labs and Imaging studies reviewed. (See chart for details) [] Dragon Disclaimer Dragon Disclaimer This electronic medical record was generated, in whole or in part, using a voice recognition dictation system. Departure Departure: Impression: Primary Impression: Abdominal pain Disposition: 01 HOME, SELF-CARE Condition: STABLE Referrals: JONATHON JACKSON MD (PCP) Patient Instructions: Abdominal Pain Scripts Ondansetron Hcl (ZOFRAN) 4 Mg Tablet 4 MG PO Q6HRS PRN for NAUSEA, #12 TAB Prov: CRUZ MOURA Jr. DO 07/23/18 Dicyclomine Hcl (DICYCLOMINE HCL) 20 Mg Tablet 1 TAB PO TID PRN for abdominal pain, #30 TAB Prov: CRUZ MOURA Jr. DO 07/23/18 Problem Qualifiers Primary Impression: Abdominal pain Abdominal location: unspecified location Qualified Codes: R10.9 - Unsp ecified abdominal pain CRUZ MOURA Jr. DO July 23, 2018 18:18
--- NOTE | 2018-07-23 18:20 | EKG ---
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
[2018-07-23 18:33] LABS: BASO % 1 % (0-3); EOS # 0.1 x10^3/uL (0.0-0.7); EOS % 3 % (0-3); HEMATOCRIT 42.1 % (36.0-47.0); LYMPH # 1.5 x10^3/uL (1.0-4.8); LYMPH % 40 % (24-48); MEAN CORPUSCULAR HEMOGLOBIN 28 pg (25-35); MEAN CORPUSCULAR HGB CONC 33 g/dL (31-37); MEAN CORPUSCULAR VOLUME 85 fL (79-100); MONO # 0.3 x10^3/uL (0.0-1.1); MONO % 9 % (0-9); NEUT # 1.8 x10^3uL (1.8-7.7); NEUT % 48 % (31-73); PLATELET COUNT 319 x10^3/uL (140-400); RED BLOOD COUNT 4.94 x10^6/uL (3.50-5.40); RED CELL DISTRIBUTION WIDTH 15.5 % (11.5-14.5); WHITE BLOOD COUNT 3.8 x10^3/uL (4.0-11.0)
[2018-07-23] MEDS ORDERED: diphenhydrAMINE 50 MG/ML VIAL IVP ONE ×2 (18:45→20:15)
[2018-07-23] MEDS ORDERED: IOHEXOL 300 MG/ML 75 ML VIAL. IV ONE (18:45)
[2018-07-23 18:51] LABS: ALBUMIN 3.6 g/dL (3.4-5.0); ALBUMIN/GLOBULIN RATIO 0.8 (1.0-1.7); CALCIUM 8.9 mg/dL (8.5-10.1); GFR 72.2; TOTAL BILIRUBIN 0.3 mg/dL (0.2-1.0); TOTAL PROTEIN 8.2 g/dL (6.4-8.2)
[2018-07-23] MEDS ORDERED: CONTRAST GIVEN MC PRN (19:00)
[2018-07-23 19:24] LABS: BACTERIA,URINE 0 /HPF (0-FEW); BILIRUBIN,URINE NEG (NEG); CLARITY,URINE CLOUDY; COLOR,URINE AMBER; GLUCOSE,URINE NEG (NEG); NITRITE,URINE NEG (NEG); RBC,URINE 0 /HPF (0-2); SQUAMOUS EPITHELIAL CELL,UR OCC /LPF; UROBILINOGEN,URINE 0.2 mg/dL (0.2 mg/dL); WBC,URINE 0 /HPF (0-4)
[2018-07-23 19:40] VITALS: BP 151/82
--- NOTE | 2018-07-23 19:41 | RAD ---
CT of the abdomen and pelvis with IV contrast 07/23/2018. Reason for exam: Lower abdominal pain and nausea for [address] images were made through the abdomen and pelvis using an infusion of 75 mL Omnipaque 300. No oral contrast was given. Exposure: One or more of the following individualized dose reduction techniques were utilized for this examination: 1. Automated exposure control 2. Adjustment of the mA and/or kV according to patient size 3. Use of iterative reconstruction technique. Comparison is made with a previous CT of 03/20/2018. FINDINGS: There is a small cyst laterally in the liver. No significant liver parenchymal abnormality is seen. The spleen appears normal. Both kidneys enhance with contrast. There is no apparent mass or obstruction. There is a small right adrenal nodule that does not appear changed from previous study. The adrenal glands otherwise show no abnormality. No pancreatic abnormality is seen. There is no apparent retroperitoneal or mesenteric adenopathy. No abdominal soft tissue mass or inflammatory process is seen. Images through the pelvis show no apparent abnormality of the distal ureters or bladder. The bladder was poorly distended. No pelvic or inguinal adenopathy is seen. There is no apparent pelvic mass or inflammatory process. An appendix is not seen, consistent with surgical history. IMPRESSION: No identified acute abnormality. Electronically signed by: lAex Ambrocio Jr., MD (07/23/2018 7:38 PM) [facility]
[2018-07-23] MEDS ORDERED: ONDA4TAB7 PO (20:10)
[2018-07-23] MEDS ORDERED: DICY20TA3 PO (20:10)
== END 2018-07-23 20:16 | disposition home or self-care (01) ==
LOC: ER 17:43
DX: R10.32 Left lower quadrant pain (principal); R10.12 Left upper quadrant pain; R11.0 Nausea; F41.9 Anxiety disorder, unspecified; F32.9 Major depressive disorder, single episode, unspecified; E11.9 Type 2 diabetes mellitus without complications; I10 Essential (primary) hypertension; Z90.49 Acquired absence of other specified parts of digestive tract; Z90.89 Acquired absence of other organs; Z90.710 Acquired absence of both cervix and uterus; Z88.5 Allergy status to narcotic agent; Z88.6 Allergy status to analgesic agent
CPT/HCPCS: 36415; 74177; 80053; 81001; 83690; 85025; 93005; 96374; 96375; 96376; 99285; J1200; J2405; J3010; Q9967; J7030

== ENCOUNTER 2018-08-28 13:07 | Emergency (ER) | payer OTHER ==
[~2018-08-28] VITALS: Ht 162.6 cm; Wt 108.9 kg
[~2018-08-28 13:07] MED LIST changes: +DICY20TA3 PO; +ONDA4TAB7 PO
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
[2018-08-28] MEDS ORDERED: ORPHENADRINE CITRATE 60 MG/2 ML VIAL. IM ONE (14:30)
[2018-08-28] MEDS ORDERED: KETOROLAC 60 MG/2 ML VIAL. IM ONE (14:30)
[2018-08-28 14:43] VITALS: BP 170/105
== END 2018-08-28 15:45 | disposition home or self-care (01) ==
LOC: ER 13:07
DX: G89.29 Other chronic pain (principal); M54.5 Low back pain; F41.9 Anxiety disorder, unspecified; F32.9 Major depressive disorder, single episode, unspecified; E11.9 Type 2 diabetes mellitus without complications; I10 Essential (primary) hypertension; Z90.49 Acquired absence of other specified parts of digestive tract; Z90.89 Acquired absence of other organs; Z90.710 Acquired absence of both cervix and uterus; Z88.5 Allergy status to narcotic agent; Z88.6 Allergy status to analgesic agent
CPT/HCPCS: 96372; 99284; J1885; J2360

== ENCOUNTER → 2018-11-22 | Outpatient (CLI) | payer OTHER ==
[~2018-11-22] MED LIST changes: +LISI1TAB19 PO; -LISI1TAB5 PO
--- NOTE | 2018-11-22 16:51 | RAD ---
Examination: 2 views of the right knee HISTORY: History of right knee pain COMPARISON: None available. FINDINGS: The alignment of the knee joint grossly appears unremarkable. There is no acute fracture dislocation identified. Mild joint space loss identified in the medial, lateral, patellofemoral compartments likely mild degenerative changes. IMPRESSION: No acute osseous findings. Electronically signed by: Ion Chaves MD (11/22/2018 4:49 PM) [facility]
== END | disposition home or self-care (01) ==
LOC: PMG 12:19
PROVIDERS: ATTEND Physician Assistant
DX: M25.561 Pain in right knee (principal)
CPT/HCPCS: 73560

== ENCOUNTER 2018-12-26 15:21 | Emergency (ER) | payer OTHER ==
[~2018-12-26] VITALS: Ht 160 cm; Wt 117.9 kg
[2018-12-26] MEDS ORDERED: KETOROLAC 30 MG/ML VIAL. IVP ONE (16:30)
[2018-12-26 16:32] LABS: BASO % 1 % (0-3); EOS # 0.1 x10^3/uL (0.0-0.7); EOS % 3 % (0-3); HEMATOCRIT 39.3 % (36.0-47.0); LYMPH # 1.6 x10^3/uL (1.0-4.8); LYMPH % 33 % (24-48); MEAN CORPUSCULAR HEMOGLOBIN 29 pg (25-35); MEAN CORPUSCULAR HGB CONC 33 g/dL (31-37); MEAN CORPUSCULAR VOLUME 87 fL (79-100); MONO # 0.4 x10^3/uL (0.0-1.1); MONO % 8 % (0-9); NEUT # 2.7 x10^3uL (1.8-7.7); NEUT % 56 % (31-73); PLATELET COUNT 315 x10^3/uL (140-400); RED BLOOD COUNT 4.55 x10^6/uL (3.50-5.40); WHITE BLOOD COUNT 4.9 x10^3/uL (4.0-11.0)
[2018-12-26 16:37] VITALS: BP 166/106
[2018-12-26 16:51] LABS: ALBUMIN 3.3 g/dL (3.4-5.0); CALCIUM 8.1 mg/dL (8.5-10.1); CREATININE 0.9 mg/dL (0.6-1.0); DIRECT BILIRUBIN 0.1 mg/dL (0.0-0.2); GFR 81.2; MAGNESIUM 2.1 mg/dL (1.8-2.4); POTASSIUM 3.4 mmol/L (3.5-5.1); TOTAL BILIRUBIN 0.2 mg/dL (0.2-1.0); TOTAL PROTEIN 8.3 g/dL (6.4-8.2)
[2018-12-26] MEDS ORDERED: IOHEXOL 300 MG/ML 75 ML VIAL. IV ONE (17:15)
[2018-12-26 17:29] LABS: BACTERIA,URINE 0 /HPF (0-FEW); BILIRUBIN,URINE NEG (NEG); CLARITY,URINE HAZY; COLOR,URINE YELLOW; GLUCOSE,URINE NEG (NEG); NITRITE,URINE NEG (NEG); RBC,URINE 0 /HPF (0-2); SQUAMOUS EPITHELIAL CELL,UR OCC /LPF; UROBILINOGEN,URINE 1 mg/dL (0.2 mg/dL); WBC,URINE OCC /HPF (0-4)
[2018-12-26] MEDS ORDERED: ORPHENADRINE CITRATE 60 MG/2 ML VIAL. IM ONE (17:45)
--- NOTE | 2018-12-26 17:46 | PHYS DOC ---
Past History Past Medical History: Diabetes, Hypertension, Hypothyroid, Other Additional Past Medical Histor: FLUID RETENTION Past Surgical History: Appendectomy, Cholecystectomy, Hysterectomy, Other Additional Past Surgical Histo: D&C, THYROID Smoking: Non-smoker Additional Smoking Information: VAPES Alcohol Use: None Drug Use: None Adult General Chief Complaint Chief Complaint: LOWER EXT PAIN [facility] HPI Patient is a 48-year-old female who presents with complaint of pain and swelling to her face, scalp, legs and abdomen. Patient states that she has a history of edema and states that her legs have been very swollen last night but had put compression stockings on last night and they're much better today. She also indicates that she has noticed a lot of swelling to her face as well as her scalp and states that these areas are quite painful. She states that her abdomen has been very swollen as well. She rates her pain to be a 9 out of 10. She states that nothing has been helping with her symptoms. She denies any chest pain or shortness of breath. She does indicate that walking worsens her leg pain bilaterally.[] Review of Systems Review of Systems Constitutional: Denies fever or chills [] Respiratory: Denies cough or shortness of breath [] Cardiovascular: No additional information not addressed in HPI [] GI: Complains of abdominal pain without vomiting or diarrhea [] Musculoskeletal: Complains of bilateral leg pain [] Integument: Denies rash or skin lesions [] Neurologic: Complains of headache without focal weakness or sensory changes [] All other systems were reviewed and found to be within normal limits, except as documented in this note. Current Medications Current Medications Current Medications Medications (Trade) Dose Ordered Sig/Jennifer Start Time Stop Time Status Last Admin Dose Admin Iohexol (Omnipaque 300 Mg/ml) 75 ml 1X ONCE 12/26/18 17:15 12/26/18 17:16 DC 12/26/18 17:22 75 ML Ketorolac Tromethamine (Toradol 30mg Vial) 30 mg 1X ONCE 12/26/18 16:30 12/26/18 16:31 DC 12/26/18 16:50 30 MG Allergies Allergies Allergies Coded Allergies Type Severity Reaction Last Updated Verified codeine Allergy Intermediate 03/19/18 Yes hydrocodone Allergy Intermediate rash 12/24/17 Yes oxycodone Allergy Intermediate hives/itch/and n/v. 12/24/17 Yes tramadol Allergy Intermediate hives 12/24/17 Yes Physical Exam Physical Exam Constitutional: Well developed, well nourished, no acute distress, non-toxic appearance. [] HENT: Normocephalic, atraumatic, bilateral external ears normal, oropharynx moist, no oral exudates, nose normal. [] Eyes: PERRLA, EOMI, conjunctiva normal, no discharge. [] Neck: Normal range of motion, no tenderness, supple, no stridor. [] Cardiovascular: Regular rate and rhythm[] Lungs & Thorax: Bilateral breath sounds clear to auscultation [] Abdomen: Bowel sounds normal, soft, with diffuse reported tenderness. [] Skin: Warm, dry, no erythema, no rash. [] Extremities: No tenderness, no cyanosis, no clubbing, ROM intact, with nonpitting lower extremity edema. [] Neurologic: Alert and oriented X 3, no focal deficits noted. [] Current Patient Data Vital Signs Vital Signs Date Time Temp Pulse Resp B/P (MAP) Pulse Ox O2 Delivery O2 Flow Rate FiO2 12/26/18 16:37 76 20 166/106 (126) 97 Room Air 12/26/18 15:35 97.6 Lab Results Laboratory Tests Test 12/26/18 16:10 12/26/18 16:12 12/26/18 16:15 Urine Collection Type Unknown Urine Color Yellow Urine Clarity Hazy Urine pH 7.0 Urine Specific [place] 1.020 Urine Protein Neg (NEG-TRACE) Urine Glucose (UA) Neg mg/dL (NEG) Urine Ketones (Stick) Neg mg/dL (NEG) Urine Blood Neg (NEG) Urine Nitrite Neg (NEG) Urine Bilirubin Neg (NEG) Urine Urobilinogen Dipstick 1 mg/dL (0.2 mg/dL) Urine Leukocyte Esterase Neg (NEG) Urine RBC 0 /HPF (0-2) Urine WBC Occ /HPF (0-4) Urine Squamous Epithelial Cells Occ /LPF Urine Bacteria 0 /HPF (0-FEW) Urine Mucus Slight /LPF POC Urine HCG, Qualitative hcg negative (Negative) White Blood Count 4.9 x10^3/uL (4.0-11.0) Red Blood Count 4.55 x10^6/uL (3.50-5.40) Hemoglobin 13.0 g/dL (12.0-15.5) Hematocrit 39.3 % (36.0-47.0) Mean Corpuscular Volume 87 fL (79-100) Mean Corpuscular Hemoglobin 29 pg (25-35) Mean Corpuscular Hemoglobin Concent 33 g/dL (31-37) Red Cell Distribution Width 15.0 % (11.5-14.5) H Platelet Count 315 x10^3/uL (140-400) Neutrophils (%) (Auto) 56 % (31-73) Lymphocytes (%) (Auto) 33 % (24-48) Monocytes (%) (Auto) 8 % (0-9) Eosinophils (%) (Auto) 3 % (0-3) Basophils (%) (Auto) 1 % (0-3) Neutrophils # (Auto) 2.7 x10^3uL (1.8-7.7) Lymphocytes # (Auto) 1.6 x10^3/uL (1.0-4.8) Monocytes # (Auto) 0.4 x10^3/uL (0.0-1.1) Eosinophils # (Auto) 0.1 x10^3/uL (0.0-0.7) Basophils # (Auto) 0.0 x10^3/uL (0.0-0.2) Sodium Level 142 mmol/L (136-145) Potassium Level 3.4 mmol/L (3.5-5.1) L Chloride Level 105 mmol/L (98-107) Carbon Dioxide Level 30 mmol/L (21-32) Anion Gap 7 (6-14) Blood Urea Nitrogen 10 mg/dL (7-20) Creatinine 0.9 mg/dL (0.6-1.0) Estimated GFR (Cockcroft-Gault) 81.2 Glucose Level 112 mg/dL (70-99) H Calcium Level 8.1 mg/dL (8.5-10.1) L Magnesium Level 2.1 mg/dL (1.8-2.4) Total Bilirubin 0.2 mg/dL (0.2-1.0) Direct Bilirubin 0.1 mg/dL (0.0-0.2) Aspartate Amino Transferase (AST) 13 U/L (15-37) L Alanine Aminotransferase (ALT) 19 U/L (14-59) Alkaline Phosphatase 91 U/L (46-116) LJ-Vss-C-Type Natriuretic Peptide 9 pg/mL (0-124) Total Protein 8.3 g/dL (6.4-8.2) H Albumin 3.3 g/dL (3.4-5.0) L EKG EKG [] Radiology/Procedures Radiology/Procedures [] Impressions: PROCEDURE: CT ABD PELV W/ IV CONTRST ONLY Exam: CT abdomen and pelvis with contrast INDICATION: Diffuse abdominal pain TECHNIQUE: Sequential axial images through the abdomen and pelvis obtained following the administration of 60 mL of Isovue-370 IV contrast. Sagittal and coronal reformatted images were reconstructed from the axial data and reviewed. Comparisons: None FINDINGS: Heart size is normal. No pericardial effusion. Visualized lung bases are clear. No pleural effusion. Liver, spleen, pancreas, and adrenals are unremarkable. Gallbladder surgically absent. Kidneys demonstrate symmetric enhancement. No perinephric inflammation or hydronephrosis. No renal or ureteral calculi are identified. Bladder is decompressed not well evaluated. Uterus is absent. No abnormal adnexal mass. A few scattered diverticula are noted predominantly at the sigmoid colon without evidence of acute diverticulitis. Remainder of the large and small bowel are unremarkable. Appendix is not identified. Abdominal aorta has a normal course and caliber. Abdominal vasculature is patent. No enlarged abdominal lymph nodes are identified. No suspicious osseous lesions or acute fractures. IMPRESSION: 1. Diverticulosis without evidence of acute diverticulitis. 2. No acute process identified within the abdomen or pelvis. Exposure: One or more of the following in the visualized dose reduction techniques were utilized for this examination: 1. Automated exposure control 2. Adjustment of the MA and/or KV according to patient size 3. Use of iterative of reconstructive technique Electronically signed by: Luis A Rodriguez MD (12/26/2018 6:02 PM) [facility] DICTATED AND SIGNED BY: LUIS A RODRIGUEZ MD DATE: 12/26/181801 CC: CRUZ MOURA Jr. DO; TIFAFNIE GARCIA ~ Course & Med Decision Making Course & Med Decision Making Pertinent Labs and Imaging studies reviewed. (See chart for details) [] Dragon Disclaimer Dragon Disclaimer This electronic medical record was generated, in whole or in part, using a voice recognition dictation system. Departure Departure: Impression: Primary Impression: Generalized abdominal pain Additional Impression: Lower extremity edema Disposition: 01 HOME, SELF-CARE Condition: STABLE Referrals: TIFFANIE GARCIA (PCP) Patient Instructions: Abdominal Pain, Edema Scripts Dicyclomine Hcl (DICYCLOMINE HCL) 10 Mg Capsule 1 CAP PO TID PRN for abdominal pain, #20 CAP Prov: CRUZ MOURA Jr. DO 12/26/18 Ketorolac Tromethamine (KETOROLAC TROMETHAMINE) 10 Mg Tablet 1 TAB PO PRN Q6HRS PRN for PAIN, #20 TAB Prov: CRUZ MOURA Jr. DO 12/26/18 Problem Qualifiers CRUZ MOURA Jr. DO Dec 26, 2018 17:46
--- NOTE | 2018-12-26 18:05 | RAD ---
Exam: CT abdomen and pelvis with contrast INDICATION: Diffuse abdominal pain TECHNIQUE: Sequential axial images through the abdomen and pelvis obtained following the administration of 60 mL of Isovue-370 IV contrast. Sagittal and coronal reformatted images were reconstructed from the axial data and reviewed. Comparisons: None FINDINGS: Heart size is normal. No pericardial effusion. Visualized lung bases are clear. No pleural effusion. Liver, spleen, pancreas, and adrenals are unremarkable. Gallbladder surgically absent. Kidneys demonstrate symmetric enhancement. No perinephric inflammation or hydronephrosis. No renal or ureteral calculi are identified. Bladder is decompressed not well evaluated. Uterus is absent. No abnormal adnexal mass. A few scattered diverticula are noted predominantly at the sigmoid colon without evidence of acute diverticulitis. Remainder of the large and small bowel are unremarkable. Appendix is not identified. Abdominal aorta has a normal course and caliber. Abdominal vasculature is patent. No enlarged abdominal lymph nodes are identified. No suspicious osseous lesions or acute fractures. IMPRESSION: 1. Diverticulosis without evidence of acute diverticulitis. 2. No acute process identified within the abdomen or pelvis. Exposure: One or more of the following in the visualized dose reduction techniques were utilized for this examination: 1. Automated exposure control 2. Adjustment of the MA and/or KV according to patient size 3. Use of iterative of reconstructive technique Electronically signed by: Luis A Burns MD (12/26/2018 6:02 PM) [facility]
[2018-12-26] MEDS ORDERED: DICY10CA3 PO (18:12)
[2018-12-26] MEDS ORDERED: KETO10TA PO (18:12)
== END 2018-12-26 18:24 | disposition home or self-care (01) ==
LOC: ER 15:21
DX: R10.84 Generalized abdominal pain (principal); R60.0 Localized edema; R51 Headache; E11.9 Type 2 diabetes mellitus without complications; I10 Essential (primary) hypertension; E03.9 Hypothyroidism, unspecified; F17.200 Nicotine dependence, unspecified, uncomplicated; Z90.49 Acquired absence of other specified parts of digestive tract; Z90.89 Acquired absence of other organs; Z90.710 Acquired absence of both cervix and uterus; Z88.5 Allergy status to narcotic agent; Z88.6 Allergy status to analgesic agent
CPT/HCPCS: 36415; 74177; 80048; 80076; 81001; 81025; 83735; 83880; 84443; 85025; 96372; 96374; 99285; J1885; J2360; Q9967

== ENCOUNTER → 2019-01-26 | Outpatient (CLI) | payer OTHER ==
[~2019-01-26] MED LIST changes: +DICY10CA3 PO; +KETO10TA PO
--- NOTE | 2019-01-26 16:38 | RAD ---
EXAM: Abdomen, 2 views. HISTORY: Pain. COMPARISON: 12/26/2018 FINDINGS: Frontal upright and supine views of the abdomen are obtained. There is gas and stool within the colon. No abnormally air-filled small bowel seen. There are cholecystectomy clips. There is mild elevation of the right hemidiaphragm. There is no free air. There are pelvic phleboliths. IMPRESSION: Nonobstructive bowel gas pattern. Electronically signed by: Kaela Anthony MD (01/26/2019 4:35 PM) [place] [id number]
== END | disposition home or self-care (01) ==
LOC: PMG 12:26
PROVIDERS: ATTEND Physician Assistant
DX: R10.32 Left lower quadrant pain (principal); R19.7 Diarrhea, unspecified; I87.8 Other specified disorders of veins; Z90.49 Acquired absence of other specified parts of digestive tract
CPT/HCPCS: 74019

== ENCOUNTER → 2019-01-26 | Outpatient (CLI) | payer OTHER ==
[~2019-01-26] MED LIST changes: +BUSP10TA PO; +CLIN60SO2 AU; +CLON2TAB PO; +D-ME473S14 PO; +FLUO40CA2 PO; +FLUT16SP21 NAS; +FURO40TA4 PO; +LEVO500T8 PO; +LOSA50TA14 PO; +METF500T11 PO; +MONT10TA10 PO; +ONDA4TAB11 PO; +PANT40TA5 PO; +QUET50TA5 PO; +RANI150T2 PO
[2019-01-26 12:55] LABS: BASO % 1 % (0-3); EOS # 0.1 x10^3/uL (0.0-0.7); EOS % 3 % (0-3); HEMATOCRIT 38.5 % (36.0-47.0); HEMOGLOBIN 12.8 g/dL (12.0-15.5); LYMPH # 1.1 x10^3/uL (1.0-4.8); LYMPH % 39 % (24-48); MEAN CORPUSCULAR HEMOGLOBIN 29 pg (25-35); MEAN CORPUSCULAR HGB CONC 33 g/dL (31-37); MEAN CORPUSCULAR VOLUME 86 fL (79-100); MONO # 0.3 x10^3/uL (0.0-1.1); MONO % 9 % (0-9); NEUT # 1.4 x10^3uL (1.8-7.7); NEUT % 48 % (31-73); PLATELET COUNT 350 x10^3/uL (140-400); RED BLOOD COUNT 4.47 x10^6/uL (3.50-5.40); RED CELL DISTRIBUTION WIDTH 15.3 % (11.5-14.5); WHITE BLOOD COUNT 2.9 x10^3/uL (4.0-11.0)
[2019-01-26 13:04] LABS: ALBUMIN 3.4 g/dL (3.4-5.0); ALBUMIN/GLOBULIN RATIO 0.7 (1.0-1.7); CALCIUM 8.1 mg/dL (8.5-10.1); GFR 71.9; POTASSIUM 3.6 mmol/L (3.5-5.1); TOTAL BILIRUBIN 0.2 mg/dL (0.2-1.0); TOTAL PROTEIN 8.2 g/dL (6.4-8.2)
[2019-01-26 14:12] LABS: SEDIMENTATION RATE 40 (0-25)
== END | disposition home or self-care (01) ==
LOC: PMG 12:37
PROVIDERS: ATTEND Physician Assistant
DX: I10 Essential (primary) hypertension (principal); R19.7 Diarrhea, unspecified; R10.32 Left lower quadrant pain; E66.01 Morbid (severe) obesity due to excess calories
CPT/HCPCS: 36415; 80053; 82150; 83690; 85025; 85651

== ENCOUNTER 2019-02-05 13:19 | Observation (INO) | payer OTHER ==
[~2019-02-05] VITALS: Ht 160 cm; Wt 110.2 kg
[~2019-02-05 13:19] MED LIST changes: -BUSP10TA PO; -CLIN60SO2 AU; -CLON2TAB PO; -D-ME473S14 PO; +FLUO20CA19 PO; -FLUO20CA8 PO; -FLUO40CA2 PO; -FLUT16SP21 NAS; -FURO40TA4 PO; -LEVO500T8 PO; -LOSA50TA14 PO; -METF500T11 PO; -MONT10TA10 PO; -ONDA4TAB11 PO; -PANT40TA5 PO; -QUET50TA5 PO; -RANI150T2 PO
--- NOTE | 2019-02-05 13:57 | PHYS DOC ---
Past History Past Medical History: Depression, Diabetes, Hypertension, Hypothyroid, Other Additional Past Medical Histor: FLUID RETENTION Past Surgical History: Appendectomy, Cholecystectomy, Hysterectomy, Tonsillectomy, Other Additional Past Surgical Histo: D&C, THYROID Smoking: Non-smoker Additional Smoking Information: pt vaps Alcohol Use: None Drug Use: None Adult General Chief Complaint Chief Complaint: CHEST PAIN [facility] HPI Patient is a 48-year-old female who presents to the emergency department for evaluation. She states that over the past 24 hours she has had increasing pedal edema, as well as some vague chest discomfort, described as an achiness in her anterior chest, which sometimes radiates towards her upper chest and neck. She states that bending over as well as exertion today, seems to have worsened her pain. She denies any significant shortness of breath or orthopnea, dizziness or lightheadedness, numbness, or focal weakness. She has no known prior cardiac history with several cardiac risk factors. There are no alleviating or exacerbating factors to her symptoms, except as noted above. Patient's HEART score is a 4, assuming a negative troponin. Review of Systems Review of Systems Constitutional: Denies fever or chills [] Eyes: Denies change in visual acuity, redness, or eye pain [] HENT: Denies nasal congestion or sore throat [] Respiratory: Denies cough or shortness of breath [] Cardiovascular: No additional information not addressed in HPI [] GI: Denies abdominal pain, nausea, vomiting, bloody stools or diarrhea [] : Denies dysuria or hematuria [] Musculoskeletal: Denies back pain or joint pain [] Integument: Denies rash or skin lesions [] Neurologic: Denies headache, focal weakness or sensory changes [] Endocrine: Denies polyuria or polydipsia [] All other systems were reviewed and found to be within normal limits, except as documented in this note. Allergies Allergies Allergies Coded Allergies Type Severity Reaction Last Updated Verified codeine Allergy Intermediate 02/05/19 Yes hydrocodone Allergy Intermediate rash 02/05/19 Yes oxycodone Allergy Intermediate hives/itch/and n/v. 02/05/19 Yes tramadol Allergy Intermediate hives 02/05/19 Yes Physical Exam Physical Exam PHYSICAL EXAM: CONSTITUTIONAL: Well developed, well nourished HEAD: normocephalic, atraumatic EENT: PERRL, EOMI. Conjunctivae normal color, sclerae non-icteric; moist mucous membranes. NECK: Supple, non-tender; no meningismus. LUNGS: Lungs CTA, breathing even and unlabored. Normal air movement. HEART: Regular rate and rhythm, no murmur CHEST: No deformity; palpation of the anterior chest wall seems to reproduce the patient's pain. ABDOMEN: The abdomen is soft, and non-tender, no masses or bruits. EXTREM: Normal ROM; no deformity, no calf tenderness. Normal pulses palpable in all extremities. There is 1+ bilateral pitting pedal edema. SKIN: No rash; no diaphoresis NEURO: Alert; normal speech and cognition; CN's grossly intact; strength grossly intact without focal deficit. BACK: No CVA TTP. Current Patient Data Vital Signs Vital Signs Date Time Temp Pulse Resp B/P (MAP) Pulse Ox O2 Delivery O2 Flow Rate FiO2 02/05/19 13:29 97.8 76 15 94 Room Air EKG EKG Normal sinus rhythm a rate of 75 beats for minute, normal axis, normal intervals, nonspecific ST/T changes.[] Radiology/Procedures Radiology/Procedures PROCEDURE: PORTABLE CHEST 1V PORTABLE CHEST 1V Clinical indications: Chest pain. COMPARISON: March 18, 2018. Findings: No acute lung infiltrate or pleural effusion or pulmonary edema or lung mass or pneumothorax is seen. The heart size, pulmonary vasculature, mediastinum and both tatum are stable. Impression: No acute radiographic abnormality is seen.[] Course & Med Decision Making Course & Med Decision Making Pertinent Labs and Imaging studies reviewed. (See chart for details) []The patient's condition remains stable. I spoke with the hospitalist, who accepted the patient to the hospital for further evaluation and treatment. Dragon Disclaimer Dragon Disclaimer This electronic medical record was generated, in whole or in part, using a voice recognition dictation system. Departure Departure: Impression: Primary Impression: Chest pain Additional Impression: Edema Disposition: ADMITTED INPATIENT Admitting Physician: Neelima Espinoza Condition: STABLE Referrals: TIFFANIE GARCIA (PCP) Problem Qualifiers ELLIOT COBURN MD Feb 05, 2019 13:57
[2019-02-05] MEDS ORDERED: ASPIRIN 81 MG TAB.CHEW PO ONE (14:00)
[2019-02-05 14:12] LABS: BASO % 1 % (0-3); EOS # 0.1 x10^3/uL (0.0-0.7); EOS % 2 % (0-3); HEMATOCRIT 37.2 % (36.0-47.0); HEMOGLOBIN 12.4 g/dL (12.0-15.5); LYMPH # 1.3 x10^3/uL (1.0-4.8); LYMPH % 35 % (24-48); MEAN CORPUSCULAR HEMOGLOBIN 29 pg (25-35); MEAN CORPUSCULAR HGB CONC 33 g/dL (31-37); MEAN CORPUSCULAR VOLUME 86 fL (79-100); MONO # 0.4 x10^3/uL (0.0-1.1); MONO % 10 % (0-9); NEUT # 1.9 x10^3uL (1.8-7.7); NEUT % 52 % (31-73); PLATELET COUNT 299 x10^3/uL (140-400); RED BLOOD COUNT 4.31 x10^6/uL (3.50-5.40); RED CELL DISTRIBUTION WIDTH 15.2 % (11.5-14.5); WHITE BLOOD COUNT 3.6 x10^3/uL (4.0-11.0)
[2019-02-05] MEDS ORDERED: MORPHINE SULFATE 4 MG/ML DISP.SYRIN. IV ONE (14:15)
[2019-02-05] MEDS ORDERED: MORPHINE SULFATE 4 MG/ML DISP.SYRIN. ONE (14:18)
[2019-02-05] MEDS ORDERED: KETOROLAC 30 MG/ML VIAL. IVP ONE (14:30)
[2019-02-05 14:33] LABS: ALBUMIN 3.1 g/dL (3.4-5.0); ALBUMIN/GLOBULIN RATIO 0.7 (1.0-1.7); CALCIUM 8.1 mg/dL (8.5-10.1); GFR 71.9; MAGNESIUM 1.9 mg/dL (1.8-2.4); POTASSIUM 3.1 mmol/L (3.5-5.1); TOTAL BILIRUBIN 0.2 mg/dL (0.2-1.0); TOTAL PROTEIN 7.5 g/dL (6.4-8.2)
[2019-02-05] MEDS ORDERED: KETOROLAC 30 MG/ML VIAL. ONE (14:33)
--- NOTE | 2019-02-05 14:36 | RAD ---
PORTABLE CHEST 1V Clinical indications: Chest pain. COMPARISON: March 18, 2018. Findings: No acute lung infiltrate or pleural effusion or pulmonary edema or lung mass or pneumothorax is seen. The heart size, pulmonary vasculature, mediastinum and both tatum are stable. Impression: No acute radiographic abnormality is seen. Electronically signed by: Pablo Greene MD (02/05/2019 2:34 PM) [facility]
[2019-02-05 14:47] LABS: BARBITURATES NEG (NEG); BENZODIAZEPINES NEG (NEG); CANNABINOIDS NEG (NEG); COCAINE NEG (NEG); METHADONE NEG (NEG); OPIATES NEG (NEG); PHENCYCLIDINE NEG (NEG)
[2019-02-05 14:51] LABS: AMPHETAMINE/METHAMPHETAMINE NEG (NEG)
[2019-02-05] MEDS ORDERED: POTASSIUM CHLORIDE 20 MEQ TABLET.ER. PO ONE (15:00)
[2019-02-05 15:13] LABS: BACTERIA,URINE 0 /HPF (0-FEW); BILIRUBIN,URINE NEG (NEG); CLARITY,URINE CLOUDY; COLOR,URINE YELLOW; GLUCOSE,URINE NEG (NEG); NITRITE,URINE NEG (NEG); SQUAMOUS EPITHELIAL CELL,UR MANY /LPF; UROBILINOGEN,URINE 0.2 mg/dL (0.2 mg/dL)
[2019-02-05 16:08] VITALS: BP 142/93
--- NOTE | 2019-02-05 16:55 | PDOC2 ---
CONSULT Date of Admission DATE: 02/05/19 TIME: 16:55 Reason for Consult: CP and edema Referring Physician: Dr. Espinoza Chief Complaint CP, edema Source: Chart review, Patient Problem List Problems Medical Problems: (1) Chest pain Status: Acute (2) Edema Status: Acute History of Present Illness 48 y/o female presented complaining of atypical retrosternal chest pain that she described as sharp, not related to exertion or food intake, 10/10 severity. She also complained of bilateral lower extremity edema She denied any excessive salt intake but admitted to excessive fluid intake. She has mild dyspnea but denied any orthopnea/PND, palpitations or syncope. Past Medical History Depression, Diabetes, Hypertension, Hypothyroid Past Surgical History Appendectomy, Cholecystectomy, Hysterectomy, Tonsillectomy Family History negative for premature CAD Social History Patient denied any smoking or drug use Current Medications Current Medications Aspirin (Children'S Aspirin) 162 mg 1X ONCE PO Last administered on 02/05/19at 13:56; Start 02/05/19 at 14:00; Stop 02/05/19 at 14:01; Status DC Morphine Sulfate (Morphine 4mg Syringe) 4 mg 1X ONCE IV ; Start 02/05/19 at 14:15; Stop 02/05/19 at 14:31; Status DC Ketorolac Tromethamine (Toradol 30mg Vial) 30 mg 1X ONCE IVP Last administered on 02/05/19at 14:34; Start 02/05/19 at 14:30; Stop 02/05/19 at 14:33; Status DC Morphine Sulfate (Morphine 4mg Syringe) 4 mg STK-MED ONCE .ROUTE ; Start 02/05/19 at 14:18; Stop 02/05/19 at 14:31; Status DC Ketorolac Tromethamine (Toradol 30mg Vial) 30 mg STK-MED ONCE .ROUTE ; Start 02/05/19 at 14:33; Stop 02/05/19 at 14:33; Status DC Potassium Chloride (Klor-Con) 20 meq 1X ONCE PO Last administered on 02/05/19at 14:57; Start 02/05/19 at 15:00; Stop 02/05/19 at 15:01; Status DC Active Scripts Active Dicyclomine Hcl 10 Mg Capsule 1 Cap PO TID PRN Ketorolac Tromethamine 10 Mg Tablet 1 Tab PO PRN Q6HRS PRN Zofran (Ondansetron Hcl) 4 Mg Tablet 4 Mg PO Q6HRS PRN Dicyclomine Hcl 20 Mg Tablet 1 Tab PO TID PRN Klor-Con M20 (Potassium Chloride) 20 Meq Tab.er.prt 1 Tab PO DAILY Lasix (Furosemide) 40 Mg Tablet 1 Tab PO DAILY 30 Days Cyclobenzaprine Hcl 10 Mg Tablet 1 Tab PO TID PRN Naproxen Sodium 550 Mg Tablet 1 Tab PO BID Ventolin Hfa Inhaler (Albuterol Sulfate) 18 Gm Hfa.aer.ad 2 Puff IH PRN Q4-6HRS Reported Miralax (Polyethylene Glycol 3350) 17 Gm Powd.pack 1 Packet PO DAILY Colace (Docusate Sodium) 100 Mg Capsule 1 Cap PO BID Losartan Potassium (Losartan Potassium) 50 Mg Tablet 50 Mg PO DAILY Magnesium Citrate 296 Ml Solution 296 Ml PO 3X/WEEK Lasix (Furosemide) 40 Mg Tablet 1 Tab PO DAILY Potassium Chloride 10 Meq Tablet.er 20 Meq PO DAILY Fluoxetine Hcl 20 Mg Capsule 20 Mg PO DAILY Quetiapine Fumarate 50 Mg Tablet 50 Mg PO QHS Gabapentin 300 Mg Capsule 300 Mg PO TID Protonix (Pantoprazole Sodium) 40 Mg Tablet.dr 40 Mg PO DAILY Estradiol 0.5 Mg Tablet 0.5 Mg PO DAILY Clonazepam 2 Mg Tablet 1 Tab PO QID Allergies: Coded Allergies: codeine (Verified Allergy, Intermediate, 02/05/19) hydrocodone (Verified Allergy, Intermediate, rash, 02/05/19) oxycodone (Verified Allergy, Intermediate, hives/itch/and n/v., 02/05/19) tramadol (Verified Allergy, Intermediate, hives, 02/05/19) morphine (Verified Allergy, Unknown, Itching, 02/05/19) PSYCHOLOGICAL ROS: No: Hallucinations Eyes: No: Loss of vision HEENT: No: Epistaxis Respiratory: No: Hemoptysis Cardiovascular: yes: Chest Pain, Edema Gastrointestinal: No: Vomiting, Diarrhea Neurological: No: Seizures Skin: No: Rash General: Alert, Oriented X3 HEENT: Atraumatic, PERRLA Lungs: Clear to auscultation Heart: Regular rate Abdomen: Soft Extremities: Other (1+ pitting edema) VITALS Vital Signs Date Time Temp Pulse Resp B/P (MAP) Pulse Ox O2 Delivery O2 Flow Rate FiO2 02/05/19 16:08 97.5 66 20 142/93 (109) 93 Room Air Labs Laboratory Tests Test 02/05/19 13:58 02/05/19 14:20 White Blood Count 3.6 x10^3/uL (4.0-11.0) Red Blood Count 4.31 x10^6/uL (3.50-5.40) Hemoglobin 12.4 g/dL (12.0-15.5) Hematocrit 37.2 % (36.0-47.0) Mean Corpuscular Volume 86 fL (79-100) Mean Corpuscular Hemoglobin 29 pg (25-35) Mean Corpuscular Hemoglobin Concent 33 g/dL (31-37) Red Cell Distribution Width 15.2 % (11.5-14.5) Platelet Count 299 x10^3/uL (140-400) Neutrophils (%) (Auto) 52 % (31-73) Lymphocytes (%) (Auto) 35 % (24-48) Monocytes (%) (Auto) 10 % (0-9) Eosinophils (%) (Auto) 2 % (0-3) Basophils (%) (Auto) 1 % (0-3) Neutrophils # (Auto) 1.9 x10^3uL (1.8-7.7) Lymphocytes # (Auto) 1.3 x10^3/uL (1.0-4.8) Monocytes # (Auto) 0.4 x10^3/uL (0.0-1.1) Eosinophils # (Auto) 0.1 x10^3/uL (0.0-0.7) Basophils # (Auto) 0.0 x10^3/uL (0.0-0.2) Sodium Level 143 mmol/L (136-145) Potassium Level 3.1 mmol/L (3.5-5.1) Chloride Level 105 mmol/L (98-107) Carbon Dioxide Level 26 mmol/L (21-32) Anion Gap 12 (6-14) Blood Urea Nitrogen 10 mg/dL (7-20) Creatinine 1.0 mg/dL (0.6-1.0) Estimated GFR (Cockcroft-Gault) 71.9 BUN/Creatinine Ratio 10 (6-20) Glucose Level 107 mg/dL (70-99) Calcium Level 8.1 mg/dL (8.5-10.1) Magnesium Level 1.9 mg/dL (1.8-2.4) Total Bilirubin 0.2 mg/dL (0.2-1.0) Aspartate Amino Transf (AST/SGOT) 17 U/L (15-37) Alanine Aminotransferase (ALT/SGPT) 22 U/L (14-59) Alkaline Phosphatase 79 U/L (46-116) Troponin I Quantitative < 0.017 ng/mL (0-0.055) XO-Czq-G-Type Natriuretic Peptide 24 pg/mL (0-124) Total Protein 7.5 g/dL (6.4-8.2) Albumin 3.1 g/dL (3.4-5.0) Albumin/Globulin Ratio 0.7 (1.0-1.7) Urine Collection Type Unknown Urine Color Yellow Urine Clarity Cloudy Urine pH 6.5 Urine Specific [place] 1.020 Urine Protein Neg (NEG-TRACE) Urine Glucose (UA) Neg mg/dL (NEG) Urine Ketones (Stick) Neg mg/dL (NEG) Urine Blood Neg (NEG) Urine Nitrite Neg (NEG) Urine Bilirubin Neg (NEG) Urine Urobilinogen Dipstick 0.2 mg/dL (0.2 mg/dL) Urine Leukocyte Esterase Neg (NEG) Urine RBC 1-2 /HPF (0-2) Urine WBC 1-4 /HPF (0-4) Urine Squamous Epithelial Cells Many /LPF Urine Bacteria 0 /HPF (0-FEW) Urine Opiates Screen Neg (NEG) Urine Methadone Screen Neg (NEG) Urine Barbiturates Neg (NEG) Urine Phencyclidine Screen Neg (NEG) Urine Amphetamine/Methamphetamine Neg (NEG) Urine Benzodiazepines Screen Neg (NEG) Urine Cocaine Screen Neg (NEG) Urine Cannabinoids Screen Neg (NEG) Urine Ethyl Alcohol Neg (NEG) Assessment/Plan 1. Chest pain with atypical features and most probably musculoskeletal since this is reproducible to palpation. ND ruled out. 2D echo 03/25 showed normal LVF. Plan ischemic evaluation as outpatient 2. Edema: BNP normal and CXR without acute process. Could be related to her excessive water intake. We will consider venous reflux study as outpatient to rule out venous insufficiency. Diurese gently for symptomatic relief. 3. HTN: BP Slightly elevated. Resume home meds and titrate for better control Thank you for your consultation. WARREN BARR MD Feb 05, 2019 16:55
[2019-02-05] MEDS ORDERED: fentaNYL PF 250 MCG/5 ML VIAL IV PRN (17:30)
[2019-02-05] MEDS ORDERED: METF500T11 PO (18:26)
[2019-02-05] MEDS ORDERED: CLON2TAB PO (18:26)
[2019-02-05] MEDS ORDERED: LOSA50TA14 PO (18:26)
[2019-02-05] MEDS ORDERED: PANT40TA5 PO (18:26)
[2019-02-05] MEDS ORDERED: LEVO500T8 PO (18:26)
[2019-02-05] MEDS ORDERED: FLUO40CA2 PO (18:26)
[2019-02-05] MEDS ORDERED: FURO40TA4 PO (18:26)
[2019-02-05] MEDS ORDERED: D-ME473S14 PO (18:26)
[2019-02-05] MEDS ORDERED: CLIN60SO2 AU (18:26)
[2019-02-05] MEDS ORDERED: BUSP10TA PO (18:26)
[2019-02-05] MEDS ORDERED: FLUT16SP21 NAS (18:26)
[2019-02-05] MEDS ORDERED: ONDA4TAB11 PO (18:26)
[2019-02-05] MEDS ORDERED: QUET50TA5 PO (18:26)
[2019-02-05] MEDS ORDERED: RANI150T2 PO (18:26)
[2019-02-05] MEDS ORDERED: MONT10TA10 PO (18:26)
[2019-02-05 19:17] VITALS: BP 159/96
[2019-02-05] MEDS ORDERED: ESTR0.5T PO (19:24)
[2019-02-05] MEDS ORDERED: CYCLOBENZAPRINE 10 MG TABLET. PO PRN (20:15)
[2019-02-05] MEDS ORDERED: ONDANSETRON ODT 4 MG TAB.RAPDIS PO PRN (20:30)
[2019-02-05] MEDS: GABAPENTIN 300 MG CAPSULE. PO SCH (20:34)
[2019-02-05] MEDS ORDERED: QUEtiapine 50 MG TABLET. PO SCH (21:00)
[2019-02-05] MEDS ORDERED: clonazePAM 2 MG TABLET PO SCH (21:00)
[2019-02-05] MEDS: FLUTICASONE 50MCG/NASAL SPRAY 16GM BOTTLE. NS SCH (21:00)
[2019-02-05 22:29] VITALS: BP 156/84
[2019-02-06 06:10] VITALS: BP 134/73
[2019-02-06 06:23] LABS: BASO % 1 % (0-3); EOS # 0.1 x10^3/uL (0.0-0.7); EOS % 3 % (0-3); HEMATOCRIT 36.7 % (36.0-47.0); HEMOGLOBIN 11.9 g/dL (12.0-15.5); LYMPH # 1.5 x10^3/uL (1.0-4.8); LYMPH % 37 % (24-48); MEAN CORPUSCULAR HEMOGLOBIN 29 pg (25-35); MEAN CORPUSCULAR HGB CONC 33 g/dL (31-37); MEAN CORPUSCULAR VOLUME 88 fL (79-100); MONO # 0.5 x10^3/uL (0.0-1.1); MONO % 11 % (0-9); NEUT % 49 % (31-73); PLATELET COUNT 275 x10^3/uL (140-400); RED BLOOD COUNT 4.18 x10^6/uL (3.50-5.40); RED CELL DISTRIBUTION WIDTH 15.4 % (11.5-14.5)
[2019-02-06 06:26] LABS: CALCIUM 8.3 mg/dL (8.5-10.1); GFR 71.9; POTASSIUM 3.6 mmol/L (3.5-5.1)
--- NOTE | 2019-02-06 07:04 | EKG ---
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
--- NOTE | 2019-02-06 07:43 | PDOC ---
CARDIO Progress Notes Date & Time Date of Service DATE: 02/06/19 TIME: 07:40 Time of Evaluation 07:40 Subjective Notes C/o LE edema Chest pain with palpation of the central chest Vitals Vitals Vital Signs Date Time Temp Pulse Resp B/P (MAP) Pulse Ox O2 Delivery O2 Flow Rate FiO2 02/06/19 06:10 97.4 70 20 134/73 (93) 94 Room Air Weight Weight [ ] Input and Output I.O. Intake and Output 02/06/19 07:00 Intake Total 640 ml Balance 640 ml Intake Oral 640 ml # Voids 3 Laboratory Labs Laboratory Tests Test 02/05/19 13:58 02/05/19 14:20 02/05/19 16:52 02/05/19 20:07 White Blood Count 3.6 x10^3/uL (4.0-11.0) Red Blood Count 4.31 x10^6/uL (3.50-5.40) Hemoglobin 12.4 g/dL (12.0-15.5) Hematocrit 37.2 % (36.0-47.0) Mean Corpuscular Volume 86 fL (79-100) Mean Corpuscular Hemoglobin 29 pg (25-35) Mean Corpuscular Hemoglobin Concent 33 g/dL (31-37) Red Cell Distribution Width 15.2 % (11.5-14.5) Platelet Count 299 x10^3/uL (140-400) Neutrophils (%) (Auto) 52 % (31-73) Lymphocytes (%) (Auto) 35 % (24-48) Monocytes (%) (Auto) 10 % (0-9) Eosinophils (%) (Auto) 2 % (0-3) Basophils (%) (Auto) 1 % (0-3) Neutrophils # (Auto) 1.9 x10^3uL (1.8-7.7) Lymphocytes # (Auto) 1.3 x10^3/uL (1.0-4.8) Monocytes # (Auto) 0.4 x10^3/uL (0.0-1.1) Eosinophils # (Auto) 0.1 x10^3/uL (0.0-0.7) Basophils # (Auto) 0.0 x10^3/uL (0.0-0.2) Sodium Level 143 mmol/L (136-145) Potassium Level 3.1 mmol/L (3.5-5.1) Chloride Level 105 mmol/L (98-107) Carbon Dioxide Level 26 mmol/L (21-32) Anion Gap 12 (6-14) Blood Urea Nitrogen 10 mg/dL (7-20) Creatinine 1.0 mg/dL (0.6-1.0) Estimated GFR (Cockcroft-Gault) 71.9 BUN/Creatinine Ratio 10 (6-20) Glucose Level 107 mg/dL (70-99) Calcium Level 8.1 mg/dL (8.5-10.1) Magnesium Level 1.9 mg/dL (1.8-2.4) Total Bilirubin 0.2 mg/dL (0.2-1.0) Aspartate Amino Transf (AST/SGOT) 17 U/L (15-37) Alanine Aminotransferase (ALT/SGPT) 22 U/L (14-59) Alkaline Phosphatase 79 U/L (46-116) Troponin I Quantitative < 0.017 ng/mL (0-0.055) NX-Ick-K-Type Natriuretic Peptide 24 pg/mL (0-124) Total Protein 7.5 g/dL (6.4-8.2) Albumin 3.1 g/dL (3.4-5.0) Albumin/Globulin Ratio 0.7 (1.0-1.7) Urine Collection Type Unknown Urine Color Yellow Urine Clarity Cloudy Urine pH 6.5 Urine Specific [place] 1.020 Urine Protein Neg (NEG-TRACE) Urine Glucose (UA) Neg mg/dL (NEG) Urine Ketones (Stick) Neg mg/dL (NEG) Urine Blood Neg (NEG) Urine Nitrite Neg (NEG) Urine Bilirubin Neg (NEG) Urine Urobilinogen Dipstick 0.2 mg/dL (0.2 mg/dL) Urine Leukocyte Esterase Neg (NEG) Urine RBC 1-2 /HPF (0-2) Urine WBC 1-4 /HPF (0-4) Urine Squamous Epithelial Cells Many /LPF Urine Bacteria 0 /HPF (0-FEW) Urine Opiates Screen Neg (NEG) Urine Methadone Screen Neg (NEG) Urine Barbiturates Neg (NEG) Urine Phencyclidine Screen Neg (NEG) Urine Amphetamine/Methamphetamine Neg (NEG) Urine Benzodiazepines Screen Neg (NEG) Urine Cocaine Screen Neg (NEG) Urine Cannabinoids Screen Neg (NEG) Urine Ethyl Alcohol Neg (NEG) Glucose (Fingerstick) 87 mg/dL (70-99) 127 mg/dL (70-99) Test 02/05/19 21:10 02/06/19 05:50 02/06/19 05:55 Troponin I Quantitative < 0.017 ng/mL (0-0.055) < 0.017 ng/mL (0-0.055) Sodium Level 143 mmol/L (136-145) Potassium Level 3.6 mmol/L (3.5-5.1) Chloride Level 105 mmol/L (98-107) Carbon Dioxide Level 30 mmol/L (21-32) Anion Gap 8 (6-14) Blood Urea Nitrogen 11 mg/dL (7-20) Creatinine 1.0 mg/dL (0.6-1.0) Estimated GFR (Cockcroft-Gault) 71.9 Glucose Level 97 mg/dL (70-99) Calcium Level 8.3 mg/dL (8.5-10.1) White Blood Count 4.0 x10^3/uL (4.0-11.0) Red Blood Count 4.18 x10^6/uL (3.50-5.40) Hemoglobin 11.9 g/dL (12.0-15.5) Hematocrit 36.7 % (36.0-47.0) Mean Corpuscular Volume 88 fL (79-100) Mean Corpuscular Hemoglobin 29 pg (25-35) Mean Corpuscular Hemoglobin Concent 33 g/dL (31-37) Red Cell Distribution Width 15.4 % (11.5-14.5) Platelet Count 275 x10^3/uL (140-400) Neutrophils (%) (Auto) 49 % (31-73) Lymphocytes (%) (Auto) 37 % (24-48) Monocytes (%) (Auto) 11 % (0-9) Eosinophils (%) (Auto) 3 % (0-3) Basophils (%) (Auto) 1 % (0-3) Neutrophils # (Auto) 2.0 x10^3uL (1.8-7.7) Lymphocytes # (Auto) 1.5 x10^3/uL (1.0-4.8) Monocytes # (Auto) 0.5 x10^3/uL (0.0-1.1) Eosinophils # (Auto) 0.1 x10^3/uL (0.0-0.7) Basophils # (Auto) 0.0 x10^3/uL (0.0-0.2) Physical Exams HEENT: Neck Supple W Full Motion Chest: Symmetric, Other (central chest tenderness upon palpitation) Lungs: Clear to Auscultation Heart: S1S2, RRR Abdomen: Soft N/T Extremities: Other (1-2+ bilateral LE edema ) Neurology: alert, oriented, follow commands Assessment Assessment 1. Chest pain, atypical. AMI ruled out. Most probable MSK in origin as it is reproducible. 2D echo 03/25 showed normal LVF. 2. LE edema; BNP normal and CXR without acute process. Could be related to her excessive water intake and increase Na intake over the weekend. 3. Hypertension; better controlled Recommendations Mild diuresis Outpatient ischemic evaluation Consider outpatient venous reflux study given LE edema Follow up with Dr. Mcdermott in 4-6 weeks. RANULFO MENDOZA APRN Feb 06, 2019 07:43
[2019-02-06] MEDS: FLUTICASONE 50MCG/NASAL SPRAY 16GM BOTTLE. NS SCH (08:18)
[2019-02-06] MEDS: GABAPENTIN 300 MG CAPSULE. PO SCH (08:19)
[2019-02-06] MEDS ORDERED: FUROSEMIDE 40 MG TABLET PO SCH (09:00)
[2019-02-06] MEDS ORDERED: PANTOPRAZOLE 40 MG TABLET. PO SCH (09:00)
[2019-02-06] MEDS ORDERED: busPIRone 10 MG TABLET. PO SCH (09:00)
[2019-02-06] MEDS ORDERED: FLUoxetine HCL 20 MG CAPSULE PO SCH (09:00)
[2019-02-06] MEDS ORDERED: POLYETHYLENE GLYCOL 3350 17 GM PACKET. PO SCH (09:00)
[2019-02-06] MEDS ORDERED: LOSARTAN 50 MG TABLET. PO SCH (09:00)
[2019-02-06] MEDS ORDERED: ESTRADIOL 1 MG TABLET PO SCH (09:00)
[2019-02-06] MEDS ORDERED: POTASSIUM CHLORIDE 20 MEQ TABLET.ER. PO ONE (09:15)
[2019-02-06] MEDS ORDERED: FUROSEMIDE 20 MG/2 ML VIAL IVP ONE (09:15)
[2019-02-06 10:52] VITALS: BP 162/98
--- NOTE | 2019-02-06 13:31 | HP ---
ADMIT DATE: 02/05/2019 HISTORY OF PRESENT ILLNESS: The patient is a 48-year-old -[place] female patient, who came to the Emergency Room complaining of chest pain. She stated the pain has been present for almost 24 hours and had increasing pedal edema as well as some vague chest discomfort, described as achiness in her anterior chest, which sometimes radiates towards her upper chest and neck. She states that bending over as well as exertion seems to have worsened her pain. She denied any significant shortness of breath, orthopnea, dizziness, lightheadedness, numbness, or focal weakness. She has no known prior cardiac history. She was evaluated in the Emergency Room and her lab work show that her first set of cardiac enzyme was less than 0.017. Her EKG showed that she was in normal sinus rhythm at 75 beats per minute, normal axis, normal intervals, nonspecific ST changes and was admitted to do 2 more sets of cardiac enzyme and to consult the cardiology team. PAST MEDICAL HISTORY: Significant for depression, anxiety, type 2 diabetes, hypertension, and hypothyroidism. PAST SURGICAL HISTORY: Significant for appendectomy, cholecystectomy, hysterectomy, and tonsillectomy. FAMILY HISTORY: Negative for premature coronary artery disease. SOCIAL HISTORY: She is and has a son and a daughter. She started smoking cigarettes when she was 14 years old and quit about 5 years ago. She was advised to quit smoking and therefore, she switched to vaping. She does not drink alcohol or any recreational drugs. 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 FAMILY HISTORY: Has 1 brother, older and has apparently some medical problems that she does not know exactly the nature. Her mother is alive and has multiple myocardial infarctions and congestive heart failure. Father is alive and has CVA and currently on hospice. REVIEW OF SYSTEMS: As per history of present illness. PHYSICAL EXAMINATION GENERAL: When I examined her on arrival, she looked well and was clearly in no apparent respiratory distress. No pallor, jaundice, cyanosis, or thyromegaly. No jugular venous distention. No lower limb edema. VITAL SIGNS: Her heart rate on admission was 76, blood pressure was 151/85, temperature was 97, respiratory rate was 16, and oxygen saturation was 98%. HEAD, EYES, EARS, NOSE, AND THROAT: Showed normocephalic and atraumatic. NECK: Supple. HEART: Showed normal first and second heart sounds with no gallop or murmur. CHEST: Clear to auscultation. No crepitation or rhonchi. ABDOMEN: Distended, soft, and nontender. No guarding or rigidity. No organomegaly. All hernial orifice intact and bowel sounds normal. NEUROLOGIC: She was awake, alert, and responding appropriately. All cranial nerves are intact. EXTREMITIES: She moves extremities without difficulty. She ambulates without assistance or assistive devices. LABORATORY WORK: On admission showed a white cell count of 3600, hemoglobin 12.4, hematocrit 37, MCV 86, and platelet count of 299,000. Her chemistry showed a serum sodium 143, potassium 3.1, chloride 105, bicarbonate 26, anion gap of 12, BUN 10, and creatinine 1. Estimated GFR was 72 mL per minute. Her glucose was 107. Her calcium was 8.1 and magnesium was 1.9. Total bilirubin, AST, ALT, and alkaline phosphatase were normal. Total protein was 7.5 and albumin was 3.1. Her first set of cardiac enzymes showed troponin to be less than 0.017. Urinalysis was essentially unremarkable and toxic screen was negative. Her chest x-ray showed no acute infiltrate or pleural effusion, pulmonary edema, lung mass, or pneumothorax. The heart size, pulmonary vasculature, mediastinum, and both tatum are stable. ASSESSMENT AND PLAN: The patient was admitted. We will do 2 more sets of cardiac enzyme and we will consult the cardiology team and decide on further management accordingly. ERNESTINA GÓMEZ MD DR: RAY/mindy JOB#: [id number] / [id number]
--- NOTE | 2019-02-06 13:39 | DS ---
DATE OF DISCHARGE: HOSPITAL COURSE: The patient was admitted yesterday with fairly atypical chest pain that is most likely musculoskeletal. She has 2 more sets of cardiac enzymes that ruled out myocardial infarction. There was no clinical or radiological or chemical evidence that she is fluid overloaded. Her BNP was only 24 picogram/mL. Her chest x-ray showed that there is no evidence of lung infiltrate, pleural effusion, pulmonary edema or lung masses or pneumothorax, heart size, pulmonary vasculature, mediastinum and both tatum are stable and she did have 2 more sets of cardiac enzymes that ruled out myocardial infarction. She was seen by the Cardiology team and basically they recommended outpatient ischemic evaluation as well as consider outpatient venous reflux study given lower extremity edema. We did also ask the dietitian to explain the patient how to avoid high sodium diet and was discharged home to continue on her usual medication. PHYSICAL EXAMINATION: GENERAL: When I saw her this afternoon, she looked well and was clearly in no apparent respiratory distress. No pallor, jaundice, cyanosis or thyromegaly. No jugular venous distention. No limb edema. VITAL SIGNS: Her heart rate was 78, blood pressure was 162/98, temperature was 97.8, respiratory rate 20, and oxygen saturation was 94%. HEAD, EYES, EARS, NOSE AND THROAT: Normocephalic, atraumatic. NECK: Supple. HEART: Showed normal first and second heart sounds. No gallop or murmur. CHEST: Clear to auscultation. No crepitation or rhonchi. ABDOMEN: Distended, soft, nontender. No guarding or rigidity. No organomegaly. All hernial orifice intact. Bowel sounds normal. NEUROLOGIC: She was awake, alert, responding appropriately. All cranial nerves intact. EXTREMITIES: She moves extremities without difficulty. She ambulates without assistance or assistive devices. LABORATORY DATA: This morning showed a white cell count of 4000, hemoglobin 11.9, hematocrit 36, MCV 88 and platelet count 275,000. Her chemistry showed a serum sodium 143, potassium 3.6, chloride 105, bicarbonate 30, anion gap of 8, BUN 11, creatinine 1, estimated GFR was 72 mL per minute. Her glucose was 96, calcium was 8.3. DISCHARGE MEDICATIONS: The patient was discharged home to continue her albuterol sulfate 2 puffs every 4-6 hours, buspirone 20 mg daily, clonazepam 2 mg at bedtime, cyclobenzaprine 10 mg 3 times a day, estradiol 0.5 mg daily, fluoxetine 40 mg once a day, fluticasone propionate for Flonase 1 spray to each nostril twice a day, furosemide 40 mg daily, gabapentin 300 mg 3 times a day, losartan potassium 50 mg 3 times a day, metformin 500 mg daily, ondansetron 4 mg as needed every 4 hours, Protonix 40 mg once a day, polyethylene glycol 17 grams daily, and quetiapine fumarate 50 mg at bedtime. FINAL DISCHARGE DIAGNOSES: 1. Chest pain, atypical, myocardial infarction was ruled out. The patient claims that she is fluid overloaded; however, her BNP is normal. Chest x-ray without acute process. 2. Hypertension for which she is on losartan and we did consult dietitian to give her a written literature about high sodium diet and to avoid nonsteroidal anti-inflammatory medication as they cause Pseudo-tolerance and fluid retention and hypertension. She was diuresed with IV Lasix and recommended outpatient ischemic evaluation to consider outpatient venous reflux study given lower extremity edema, although clinically there is none. ERNESTINA GÓMEZ MD DR: RAY/mindy JOB#: [id number] / [id number]
[2019-02-06] MEDS ORDERED: metFORMIN XR 500 MG TAB.ER.24H PO SCH (17:00)
== END 2019-02-06 13:25 | disposition home or self-care (01) ==
LOC: ER 13:19 → 1 SOUTH 15:00
PROVIDERS: ADMIT Internal Medicine; ATTEND Internal Medicine
DX: R07.89 Other chest pain (principal); F32.9 Major depressive disorder, single episode, unspecified; F41.9 Anxiety disorder, unspecified; E11.9 Type 2 diabetes mellitus without complications; I10 Essential (primary) hypertension; R60.9 Edema, unspecified; E03.9 Hypothyroidism, unspecified; Z90.49 Acquired absence of other specified parts of digestive tract; Z90.710 Acquired absence of both cervix and uterus; Z87.891 Personal history of nicotine dependence
CPT/HCPCS: 36415; 71045; 80048; 80053; 80307; 81001; 82947; 83735; 83880; 84484; 85025; 93005; 96374; 96375; 96376; 99284; G0378; G0379; J1885; J3010

== ENCOUNTER 2019-05-01 20:19 | Emergency (ER) | payer OTHER ==
[~2019-05-01] VITALS: Ht 162.6 cm; Wt 116.5 kg
[~2019-05-01 20:19] MED LIST changes: +BUSP10TA PO; +CLIN60SO2 AU; +CLON2TAB PO; +D-ME473S14 PO; -FLUO20CA19 PO; +FLUO20CA20 PO; +FLUO40CA2 PO; +FLUT16SP21 NAS; +FURO40TA4 PO; +LEVO500T8 PO; +LOSA50TA14 PO; +MAGN296S68 PO; -MAGN296S9 PO; +METF500T11 PO; +MONT10TA11 PO; +ONDA-84 PO; +PANT40TA5 PO; +QUET50TA5 PO; +RANI150T2 PO
[2019-05-01] MEDS ORDERED: IV NORMAL SALINE 1,000ML 1,000 ML IV ONE (20:30)
[2019-05-01 20:55] LABS: BASO % 1 % (0-3); EOS # 0.1 x10^3/uL (0.0-0.7); EOS % 2 % (0-3); HEMATOCRIT 38.2 % (36.0-47.0); HEMOGLOBIN 12.5 g/dL (12.0-15.5); LYMPH # 1.6 x10^3/uL (1.0-4.8); LYMPH % 42 % (24-48); MEAN CORPUSCULAR HEMOGLOBIN 28 pg (25-35); MEAN CORPUSCULAR HGB CONC 33 g/dL (31-37); MEAN CORPUSCULAR VOLUME 85 fL (79-100); MONO # 0.3 x10^3/uL (0.0-1.1); MONO % 9 % (0-9); NEUT # 1.8 x10^3uL (1.8-7.7); NEUT % 46 % (31-73); PLATELET COUNT 303 x10^3/uL (140-400); RED BLOOD COUNT 4.51 x10^6/uL (3.50-5.40); RED CELL DISTRIBUTION WIDTH 15.6 % (11.5-14.5); WHITE BLOOD COUNT 3.9 x10^3/uL (4.0-11.0)
[2019-05-01 21:03] LABS: CALCIUM 8.1 mg/dL (8.5-10.1); GFR 71.9; POTASSIUM 3.6 mmol/L (3.5-5.1)
[2019-05-01 21:10] LABS: ALBUMIN 3.4 g/dL (3.4-5.0); ALBUMIN/GLOBULIN RATIO 0.8 (1.0-1.7); TOTAL BILIRUBIN 0.2 mg/dL (0.2-1.0); TOTAL PROTEIN 7.7 g/dL (6.4-8.2)
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
[2019-05-01] MEDS ORDERED: KETOROLAC 30 MG/ML VIAL. IVP ONE (21:30)
[2019-05-01 21:47] LABS: BARBITURATES NEG (NEG); BENZODIAZEPINES NEG (NEG); CANNABINOIDS POS (NEG); COCAINE NEG (NEG); METHADONE NEG (NEG); OPIATES NEG (NEG); PHENCYCLIDINE NEG (NEG)
[2019-05-01 21:51] LABS: BILIRUBIN,URINE NEG (NEG); CLARITY,URINE HAZY; COLOR,URINE YELLOW; GLUCOSE,URINE NEG (NEG); NITRITE,URINE NEG (NEG)
[2019-05-01 21:52] LABS: BACTERIA,URINE MANY /HPF (0-FEW); SQUAMOUS EPITHELIAL CELL,UR FEW /LPF
[2019-05-01 21:57] LABS: AMPHETAMINE/METHAMPHETAMINE NEG (NEG)
[2019-05-01 22:30] VITALS: BP 145/54
== END 2019-05-01 22:40 | disposition home or self-care (01) ==
LOC: ER 20:19
DX: M54.2 Cervicalgia (principal); R07.89 Other chest pain; E11.9 Type 2 diabetes mellitus without complications; I10 Essential (primary) hypertension; F17.200 Nicotine dependence, unspecified, uncomplicated; Z88.5 Allergy status to narcotic agent; Z88.6 Allergy status to analgesic agent; Z91.041 Radiographic dye allergy status; V47.5XXA Car driver injured in collision with fixed or stationary object in traffic accident, initial encounter; Y93.I9 Activity, other involving external motion; Y92.481 Parking lot as the place of occurrence of the external cause; Y99.8 Other external cause status
CPT/HCPCS: 36415; 70450; 72125; 80053; 80307; 81001; 85025; 87086; 96374; 99285; G0480; J1885; J7030

== ENCOUNTER 2019-05-14 08:53 | Emergency (ER) | payer OTHER ==
[~2019-05-14] VITALS: Ht 162.6 cm; Wt 113.9 kg
[2019-05-14] MEDS ORDERED: KETOROLAC 60 MG/2 ML VIAL. IM ONE (10:00)
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
[2019-05-14 10:16] VITALS: BP 128/81
== END 2019-05-14 10:21 | disposition home or self-care (01) ==
LOC: ER 08:53
DX: M54.2 Cervicalgia (principal); R07.89 Other chest pain; M43.6 Torticollis; E11.9 Type 2 diabetes mellitus without complications; I10 Essential (primary) hypertension; Z88.5 Allergy status to narcotic agent; Z88.6 Allergy status to analgesic agent; Z91.041 Radiographic dye allergy status; V89.2XXD Person injured in unspecified motor-vehicle accident, traffic, subsequent encounter
CPT/HCPCS: 96372; 99283; J1885

== ENCOUNTER → 2019-12-13 | Outpatient (CLI) | payer OTHER ==
[~2019-12-13] MED LIST changes: -LISI1TAB19 PO; +LISI1TAB37 PO; +METF-658 PO; -METF500T11 PO; -PANT40TA5 PO; +PANT40TA6 PO
--- NOTE | 2019-12-13 16:52 | RAD ---
EXAMINATION: HAND RIGHT 2V CLINICAL HISTORY: Right hand pain TECHNIQUE: HAND RIGHT 2V Number of Images/Views: 2 COMPARISON: None FINDINGS: Advanced degenerative changes versus partial bony fusion of the first MCP joint. [id number] degenerative changes first CMC joint. Joint spaces and alignment otherwise maintained. No acute fracture. No focal soft tissue swelling. IMPRESSION: Advanced degenerative changes versus partial bony fusion right first MCP joint. Electronically signed by: Gigi Benavidez DO (12/13/2019 4:49 PM) [id number]
== END ==
LOC: DXRAD 16:14
PROVIDERS: ATTEND Physician Assistant
DX: M19.041 Primary osteoarthritis, right hand (principal)
CPT/HCPCS: 73120

== ENCOUNTER 2020-03-17 17:33 | Emergency (ER) | payer OTHER ==
[~2020-03-17] VITALS: Ht 160 cm; Wt 106.0 kg
[~2020-03-17 17:33] MED LIST changes: -MONT10TA11 PO; +MONT10TA94 PO
--- NOTE | 2020-03-17 18:02 | PHYS DOC ---
Past History Past Medical History: Diabetes, Hypertension Additional Past Medical Histor: FLUID RETENTION (CASH MERAZ APRN) Past Surgical History: Appendectomy, Cholecystectomy, Hysterectomy, Other Additional Past Surgical Histo: THYROID (CASH MERAZ APRN) Smoking: Non-smoker Alcohol Use: None Drug Use: None (CASH EMRAZ APRN) General Adult EDM: Chief Complaint: ABDOMINAL PAIN HPI: HPI: Patient is a old female who presents with abdominal pain since yesterday. Patient describes the pain as sharp, upper abdominal pain. "I have been burping a lot and it smells really foul and I also have a headache". Patient states that she is not been able to eat or drink since last night. Patient does have a history of hypertension, diabetes, asthma, GERD. Patient states that she ran out of her acid reflux medication yesterday. Denies nausea, vomiting, diarrhea. (CASH MERAZ APRN) Review of Systems: Review of Systems: Constitutional: Denies fever or chills Eyes: Denies change in visual acuity HENT: Denies nasal congestion or sore throat Respiratory: Denies cough or shortness of breath Cardiovascular: Denies chest pain or edema GI: Reports abdominal pain, denies nausea, vomiting, bloody stools or diarrhea : Denies dysuria Musculoskeletal: Denies back pain or joint pain Integument: Denies rash Neurologic: Reports headache, denies focal weakness or sensory changes Endocrine: Denies polyuria or polydipsia Lymphatic: Denies swollen glands Psychiatric: Denies depression or anxiety (CASH MERAZ APRN) Allergies: Allergies: Allergies Coded Allergies Type Severity Reaction Last Updated Verified codeine Allergy Intermediate 05/14/19 Yes hydrocodone Allergy Intermediate rash 05/14/19 Yes oxycodone Allergy Intermediate hives/itch/and n/v. 05/14/19 Yes tramadol Allergy Intermediate hives 05/14/19 Yes I S O L A T I O N *CONTACT* Allergy Unknown 05/14/19 Yes morphine Allergy Unknown Itching 05/14/19 Yes (CASH MERAZ APRN) Physical Exam: PE: Constitutional: Well developed, well nourished, no acute distress, non-toxic appearance. [] HENT: Normocephalic, atraumatic, bilateral external ears normal, oropharynx moist, no oral exudates, nose normal. [] Eyes: PERRLA, EOMI, conjunctiva normal, no discharge. [] Neck: Normal range of motion, no tenderness, supple, no stridor. [] Cardiovascular:Heart rate regular rhythm, no murmur [] Lungs & Thorax: Bilateral breath sounds clear to auscultation [] Abdomen: Bowel sounds normal, soft, tenderness to upper abdomen, no masses, no pulsatile masses. [] Skin: Warm, dry, no erythema, no rash. [] Back: No tenderness, no CVA tenderness. [] Extremities: No tenderness, no cyanosis, no clubbing, ROM intact, no edema. [] Neurologic: Alert and oriented X 3, normal motor function, normal sensory function, no focal deficits noted. [] Psychologic: Affect normal, judgement normal, mood normal. [] (CASH MERAZ APRN) Current Patient Data: Vital Signs: Vital Signs Date Time Temp Pulse Resp B/P (MAP) Pulse Ox O2 Delivery O2 Flow Rate FiO2 03/17/20 17:48 97.3 84 18 149/92 (111) 98 Room Air (CASH MERAZ APRN) EKG: EKG: [] (CASH MERAZ APRN) Radiology/Procedures: Radiology/Procedures: CT scan abdomen and pelvis without contrast 03/17/2020 CLINICAL HISTORY: Abdominal pain. TECHNIQUE: Unenhanced, contiguous, 3 mm axial sections were obtained through the abdomen and pelvis. One or more of the following individualized dose reduction techniques were utilized for this study: 1. Automated exposure control. 2. Adjustment of the mA and/or kV according to patient size. 3. Use of iterative reconstruction technique. FINDINGS: Comparison study is dated 12/26/2018. Images through the lung bases demonstrate minimal dependent subsegmental atelectasis bilaterally. A 1.3 cm rounded low-attenuation lesion is seen involving the liver consistent with a hepatic cyst. It is unchanged. The spleen, pancreas and adrenal glands are within normal limits. No renal or ureteral calculus is seen. There is no evidence of obstruction of either collecting system. Surgical clips are seen within the ulnar fossa consistent with a cholecystectomy. No free fluid or free air is within the abdomen. There is no evidence of bowel obstruction. The appendix is partially visualized and is within normal limits. Images through the pelvis demonstrate urinary bladder to be contracted. Calcifications are seen within the pelvis consistent with phleboliths. Patient appears to be post hysterectomy. No adnexal mass is seen. Degenerative changes are seen involving the lower thoracic and throughout the lumbar spine along with both hips. IMPRESSION: No acute abnormality is seen. Electronically signed by: Chris Dorsey MD (03/17/2020 6:45 PM) [id number] (CASH MERAZ APRN) Heart Score: Risk Factors: Risk Factors: DM, Current or recent (<one month) smoker, HTN, HLP, family history of CAD, obesity. Risk Scores: Score 0 - 3: 2.5% MACE over next 6 weeks - Discharge Home Score 4 - 6: 20.3% MACE over next 6 weeks - Admit for Clinical Observation Score 7 - 10: 72.7% MACE over next 6 weeks - Early Invasive Strategies (CASH MERAZ APRN) Course & Med Decision Making: Course & Med Decision Making Pertinent Labs and Imaging studies reviewed. (See chart for details) []49-year-old female presents with epigastric abdominal pain. Patient reports pain started last night after she ate at her mom's house. Patient denies nausea, vomiting, diarrhea. Patient reports running out of her acid reflux medication yesterday. GI cocktail and Toradol ordered for pain. CT of abdomen ordered. Labs, UA showed no abnormalities. Will reassess patient after medication given. Patient reports pain has decreased. CT of the abdomen showed normal no acute abnormalities. Patient DC'd home with omeprazole. Patient instructed to follow-up with primary care tomorrow for further evaluation and refill of her medication for GERD. Patient is an agreement with this plan and will follow up with her primary care tomorrow. Patient is up and walking and hemodynamically stable upon discharge. (CASH MERAZ APRN) Dragon Disclaimer: Dragon Disclaimer: This electronic medical record was generated, in whole or in part, using a voice recognition dictation system. (CASH MERAZ APRN) Departure Departure: Impression: Primary Impression: GERD (gastroesophageal reflux disease) Qualified Codes: K21.9 - Gastro-esophageal reflux disease without esophagitis Disposition: 01 DC HOME SELF CARE/HOMELESS Condition: STABLE Referrals: TIFFANIE GARCIA (PCP) Patient Instructions: Diet for Gastroesophageal Reflux Disease, Adult, [id number] Additional Instructions: He was seen in the emergency room for abdominal pain. All of your labs came back with normal limits and your CT of your abdomen showed no abnormalities. Please follow-up with your PCP tomorrow for a refill for your medication and follow-up. If you have worsening symptoms or concerns please return to the emergency room. EMERGENCY DEPARTMENT GENERAL DISCHARGE INSTRUCTIONS Thank you for coming to [facility] (ED) today and trusting us with you care. We trust that you had a positivie experience in our Emergency Department. If you wish to speak to the department management, you may call the director at [phone]. YOUR FOLLOW UP INSTRUCTIONS ARE FOLLOWS: 1. Do you have a private Doctor? If you do not have a private doctor, please ask for a resource list of physicians or clinics that may be able to assist you with follow up care. 2. The Emergency Physician has interpreted your x-rays. The X-Ray specialist will also review them. If there is a change in the findings, you will be notified in 48 hours when at all possible. 3. A lab test or culture has been done, your results will be reviewed and you will be notified if you need a change in treatment. ADDITIONAL INSTRUCTIONS AND INFORMATION: 1. Your care today has been supervised by a physician who is specially trained in emergency care. Many problems require more than one evaluation for a complete diagnosis and treatment. We recommend that you schedule your follow up appointment as mirza mmended to ensure complete treatment of you illness or injury. If you are unable to obtain follow up care and continue to have a problem, or if your condition worsens, we recommend that you return to the ED. 2. We are not able to safely determine your condition over the phone nor are we able to give sound medical advice over the phone. For these safety reasons, if you call for medical advice we will ask you to come to the ED for further evaluation. 3. If you have any questions regarding these discharge instructions please call the ED at [phone]. SAFETY INFORMATION: In the interest of safety, wellness, and injury prevention; we encourage you to wear your sealbelt, if you smoke; quite smoking, and we encourage family to use a protective helmet for bicycling and other sporting events that present an increased risk for head injury. IF YOUR SYMPTOMS WORSEN OR NEW SYMPTOMS DEVELOP, OR YOU HAVE CONCERNS ABOUT YOUR CONDITION; OR IF YOUR CONDITION WORSENS WHILE YOU ARE WAITING FOR YOUR FOLLOW UP APPOINTMENT; EITHER CONTACT YOUR PRIMARY CARE DOCTOR, THE PHYSICIAN WHOSE NAME AND NUMBER YOU WERE GIVEN, OR RETURN TO THE ED IMMEDIATELY. Scripts Pantoprazole Sodium (PANTOPRAZOLE SODIUM) 40 Mg Tablet. 40 MG PO DAILY for GERD for 30 Days, #30 TAB Prov: CASH MERAZ APRN 03/17/20 Attending Signature Attending Signature I have participated in the care of this patient and I have reviewed and agree with all pertinent clinical information above including history, exam, and recommendations. (VALORIE HUGHES MD) CASH MERAZ APRN Mar 17, 2020 18:02 VALORIE HGUHES MD Mar 18, 2020 02:19
[2020-03-17] MEDS ORDERED: KETOROLAC 15 MG/ML VIAL. IVP ONE (18:15)
[2020-03-17] MEDS ORDERED: LIDO:MAALOX 1:1 20 ML SINGLE DOSE. PO ONE (18:15)
[2020-03-17 18:22] LABS: BASO # 0.1 x10^3/uL (0.0-0.2); BASO % 1 % (0-3); EOS # 0.1 x10^3/uL (0.0-0.7); EOS % 2 % (0-3); HEMATOCRIT 38.5 % (36.0-47.0); LYMPH # 2.1 x10^3/uL (1.0-4.8); LYMPH % 40 % (24-48); MEAN CORPUSCULAR HEMOGLOBIN 29 pg (25-35); MEAN CORPUSCULAR HGB CONC 34 g/dL (31-37); MEAN CORPUSCULAR VOLUME 85 fL (79-100); MONO # 0.4 x10^3/uL (0.0-1.1); MONO % 8 % (0-9); NEUT # 2.6 x10^3uL (1.8-7.7); NEUT % 50 % (31-73); PLATELET COUNT 332 x10^3/uL (140-400); RED BLOOD COUNT 4.56 x10^6/uL (3.50-5.40); RED CELL DISTRIBUTION WIDTH 14.9 % (11.5-14.5); WHITE BLOOD COUNT 5.2 x10^3/uL (4.0-11.0)
[2020-03-17 18:28] LABS: BILIRUBIN,URINE NEG (NEG); CLARITY,URINE HAZY; COLOR,URINE YELLOW; GLUCOSE,URINE NEG (NEG); NITRITE,URINE NEG (NEG); UROBILINOGEN,URINE 0.2 mg/dL (0.2 mg/dL)
--- NOTE | 2020-03-17 18:28 | EKG ---
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
[2020-03-17 18:30] LABS: CALCIUM 8.5 mg/dL (8.5-10.1); CREATININE 1.1 mg/dL (0.6-1.0); GFR 64.1; POTASSIUM 3.5 mmol/L (3.5-5.1)
[2020-03-17 18:31] LABS: RBC,URINE OCC /HPF (0-2)
[2020-03-17 18:32] LABS: BACTERIA,URINE MANY /HPF (0-FEW); SQUAMOUS EPITHELIAL CELL,UR MANY /LPF
--- NOTE | 2020-03-17 18:48 | RAD ---
CT scan abdomen and pelvis without contrast 03/17/2020 CLINICAL HISTORY: Abdominal pain. TECHNIQUE: Unenhanced, contiguous, 3 mm axial sections were obtained through the abdomen and pelvis. One or more of the following individualized dose reduction techniques were utilized for this study: 1. Automated exposure control. 2. Adjustment of the mA and/or kV according to patient size. 3. Use of iterative reconstruction technique. FINDINGS: Comparison study is dated 12/26/2018. Images through the lung bases demonstrate minimal dependent subsegmental atelectasis bilaterally. A 1.3 cm rounded low-attenuation lesion is seen involving the liver consistent with a hepatic cyst. I t is unchanged. The spleen, pancreas and adrenal glands are within normal limits. No renal or uretera l calculus is seen. There is no evidence of obstruction of either collecting system. Surgical clips are seen within the ulnar fossa consistent with a cholecystectomy. No free fluid or fr ee air is within the abdomen. There is no evidence of bowel obstruction. The appendix is partially vi sualized and is within normal limits. Images through the pelvis demonstrate urinary bladder to be contracted. Calcifications are seen withi n the pelvis consistent with phleboliths. Patient appears to be post hysterectomy. No adnexal mass is seen. Degenerative changes are seen involving the lower thoracic and throughout the lumbar spine along with both hips. IMPRESSION: No acute abnormality is seen. Electronically signed by: Chris Dorsey MD (03/17/2020 6:45 PM) [id number]
[2020-03-17] MEDS ORDERED: PANT40TA6 PO (19:49)
[2020-03-17 20:00] VITALS: BP 135/89
== END 2020-03-17 20:00 | disposition home or self-care (01) ==
LOC: ER 17:33
DX: K21.9 Gastro-esophageal reflux disease without esophagitis (principal); R10.10 Upper abdominal pain, unspecified; R51.9 Headache, unspecified; E11.9 Type 2 diabetes mellitus without complications; I10 Essential (primary) hypertension; Z90.89 Acquired absence of other organs; Z90.49 Acquired absence of other specified parts of digestive tract; Z90.710 Acquired absence of both cervix and uterus; Z98.890 Other specified postprocedural states; Z88.5 Allergy status to narcotic agent; Z88.6 Allergy status to analgesic agent; Z88.8 Allergy status to other drugs, medicaments and biological substances
CPT/HCPCS: 36415; 74176; 80048; 81001; 85025; 87086; 93005; 96374; 99285; J1885

== ENCOUNTER 2020-04-19 12:08 | Emergency (ER) | payer OTHER ==
[~2020-04-19] VITALS: Ht 160 cm; Wt 100.9 kg
[~2020-04-19 12:08] MED LIST changes: +MONT10TA20 PO; -MONT10TA94 PO
[2020-04-19 12:23] VITALS: BP 147/100
[2020-04-19] MEDS ORDERED: KETOROLAC 60 MG/2 ML VIAL. IM ONE (12:30)
--- NOTE | 2020-04-19 12:30 | PHYS DOC ---
Past History Past Medical History: Diabetes, Hypertension Additional Past Medical Histor: FLUID RETENTION Past Surgical History: Appendectomy, Cholecystectomy, Hysterectomy, Other Additional Past Surgical Histo: THYROID Smoking: Non-smoker Alcohol Use: None Drug Use: None Adult General Chief Complaint Chief Complaint: OTHER COMPLAINTS HPI HPI Patient is a female with history of diabetes type 2, hypertension, who presents to the ED today complaining of 10 out of 10 frontal headache described as throbbing and intermittent, symptoms for 2 days. Also complaining of nasal pressure bilaterally. Denies any fever. Denies any coughing. She states these symptoms are consistent with her worsening sinus infection. She states she normally gets a Toradol injection and antibiotics. She states she went to urgent care but they did not have any Toradol injection so they sent her to the ED. denies any exacerbating or relieving factors to her headache Review of Systems Review of Systems Constitutional: Denies fever or chills [] Eyes: Denies change in visual acuity, redness, or eye pain [] HENT: Reports nasal pressure. Denies nasal congestion or sore throat [] Respiratory: Denies cough or shortness of breath [] Cardiovascular: No additional information not addressed in HPI [] GI: Denies abdominal pain, nausea, vomiting, bloody stools or diarrhea [] : Denies dysuria or hematuria [] Musculoskeletal: Denies back pain or joint pain [] Integument: Denies rash or skin lesions [] Neurologic: Reports frontal headache, denies focal weakness or sensory changes [] All other systems were reviewed and found to be within normal limits, except as documented in this note. Current Medications Current Medications Current Medications Medications (Trade) Dose Ordered Sig/Jennifer Start Time Stop Time Status Last Admin Dose Admin Ketorolac Tromethamine (Toradol Im) 60 mg 1X ONCE 04/19/20 12:30 04/19/20 12:31 UNV Allergies Allergies Allergies Coded Allergies Type Severity Reaction Last Updated Verified codeine Allergy Intermediate 05/14/19 Yes hydrocodone Allergy Intermediate rash 05/14/19 Yes oxycodone Allergy Intermediate hives/itch/and n/v. 05/14/19 Yes tramadol Allergy Intermediate hives 05/14/19 Yes I S O L A T I O N *CONTACT* Allergy Unknown 05/14/19 Yes morphine Allergy Unknown Itching 05/14/19 Yes Physical Exam Physical Exam Constitutional: Well developed, well nourished, no acute distress, non-toxic appearance. [] HENT: Normocephalic, atraumatic, bilateral external ears normal, oropharynx moist, no oral exudates, mild maxillary sinus tenderness] Eyes: PERRLA, EOMI, conjunctiva normal, no discharge. [] Neck: Normal range of motion, no tenderness, supple, no stridor. [] Cardiovascular:Heart rate regular rhythm, no murmur [] Lungs & Thorax: Bilateral breath sounds clear to auscultation [] Abdomen: Bowel sounds normal, soft, no tenderness, no masses, no pulsatile masses. [] Skin: Warm, dry, no erythema, no rash. [] Back: No tenderness, no CVA tenderness. [] Extremities: No tenderness, no cyanosis, no clubbing, ROM intact, no edema. [] Neurologic: Alert and oriented X 3, normal motor function, normal sensory function, no focal deficits noted. Cranial nerves II through XII intact Psychologic: Affect normal, judgement normal, mood normal. [] Current Patient Data Vital Signs Vital Signs Date Time Temp Pulse Resp B/P (MAP) Pulse Ox O2 Delivery O2 Flow Rate FiO2 04/19/20 12:23 98.1 69 18 147/100 (116) 97 Room Air EKG EKG [] Radiology/Procedures Radiology/Procedures [] Heart Score Risk Factors: Risk Factors: DM, Current or recent (<one month) smoker, HTN, HLP, family history of CAD, obesity. Risk Scores: Risk Factors: DM, Current or recent (<one month) smoker, HTN, HLP, family history of CAD, obesity. Course & Med Decision Making Course & Med Decision Making Pertinent Labs and Imaging studies reviewed. (See chart for details) This is a 49-year-old female patient presented to the ED today complaining of a migraine headache pain or sinus infection. Given Toradol IM in the ED, discharged on Augmentin. OTC medications also recommended for pain/fever including ibuprofen and Tylenol. Dragon Disclaimer Dragon Disclaimer This electronic medical record was generated, in whole or in part, using a voice recognition dictation system. Departure Departure: Impression: Primary Impression: Migraine headache Additional Impression: Acute sinusitis Disposition: 01 DC HOME SELF CARE/HOMELESS Condition: STABLE Referrals: TIFFANIE GARCIA (PCP) follow up in 1-2 weeks Patient Instructions: Migraine Headache, Sinusitis Additional Instructions: You were evaluated in the emergency room for a migraine headache and sinus infection. Please take the prescribed medications as ordered ensure you complete your antibiotics. Follow-up with your doctor in 1 to 2 weeks Scripts Amoxicillin/Potassium Clav (AUGMENTIN 875-125 TABLET) 1 Each Tablet 1 TAB PO BID for 10 Days, #20 TAB 0 Refills Prov: ADE GUADALUPE APRN 04/19/20 Problem Qualifiers Primary Impression: Migraine headache Migraine type: without aura Status migrainosus presence: without status migrainosus Intractability: not intractable Qualified Codes: G43.009 - Migraine without aura, not intractable, without status migrainosus Additional Impression: Acute sinusitis Sinusitis location: frontal Recurrence: not specified as recurrent Qualified Codes: J01.10 - Acute frontal sinusitis, unspecified ADE GUADALUPE APRN Apr 19, 2020 12:30
[2020-04-19] MEDS ORDERED: AMOX1TAB61 PO (12:35)
== END 2020-04-19 12:47 | disposition home or self-care (01) ==
LOC: ER 12:08
DX: G43.909 Migraine, unspecified, not intractable, without status migrainosus (principal); I10 Essential (primary) hypertension; E11.9 Type 2 diabetes mellitus without complications; J01.10 Acute frontal sinusitis, unspecified; Z88.5 Allergy status to narcotic agent; Z88.6 Allergy status to analgesic agent; Z90.49 Acquired absence of other specified parts of digestive tract; Z90.710 Acquired absence of both cervix and uterus
CPT/HCPCS: 96372; 99283; J1885

== ENCOUNTER 2020-07-28 00:19 | Emergency (ER) | payer OTHER ==
[~2020-07-28] VITALS: Ht 160 cm; Wt 104.0 kg
[~2020-07-28 00:19] MED LIST changes: +AMOX1TAB61 PO
--- NOTE | 2020-07-28 00:32 | PHYS DOC ---
Past History Past Medical History: Diabetes, Hypertension Additional Past Medical Histor: FLUID RETENTION Past Surgical History: Appendectomy, Cholecystectomy, Hysterectomy, Other Additional Past Surgical Histo: THYROID Smoking: Non-smoker Alcohol Use: None Drug Use: None Adult General HPI HPI Patient is a 49-year-old female who presents to the emergency department with a chief complaint of 2 days of constipation, stuffy nose and urinary odor. States her also has some stuffy nose and constipation at home. States she usually has a bowel movement every 1 or 2 days but has not had one in 2 days so is worried she is constipated has been taking MiraLAX at home. Denies any recent travel, illnesses, fevers, chest pain, shortness of breath, abdominal pain, nausea, vomiting, dysuria, hematuria, diarrhea or blood in the stool. States she is eating and drinking normally for her. Review of Systems Review of Systems Review of systems otherwise unremarkable except noted in HPI Allergies Allergies Allergies Coded Allergies Type Severity Reaction Last Updated Verified codeine Allergy Intermediate 05/14/19 Yes hydrocodone Allergy Intermediate rash 05/14/19 Yes oxycodone Allergy Intermediate hives/itch/and n/v. 05/14/19 Yes tramadol Allergy Intermediate hives 05/14/19 Yes I S O L A T I O N *CONTACT* Allergy Unknown 05/14/19 Yes morphine Allergy Unknown Itching 05/14/19 Yes Physical Exam Physical Exam Constitutional: Well developed, well nourished, no acute distress, non-toxic appearance. [] HENT: Normocephalic, atraumatic, oropharynx moist, no oral exudates, Eyes: conjunctiva normal, no discharge. [] Cardiovascular:Heart rate regular rhythm, no murmur [] Lungs & Thorax: No respiratory distress Abdomen: Bowel sounds normal, soft, no tenderness, no masses, no pulsatile masses. [] Skin: Warm, dry, no erythema, no rash. [] Back: no CVA tenderness. [] Extremities: No tenderness, ROM intact, no edema. [] Neurologic: Alert and oriented X 3, no focal deficits noted. [] Psychologic: Affect normal, judgement normal, mood normal. [] EKG EKG [] Radiology/Procedures Radiology/Procedures []ne view abdomen pelvis HISTORY: Constipation Supine AP view abdomen pelvis There is air and stool scattered the colon. There is a paucity of small bowel gas. There is no obvious free air on this supine view. There is evidence of prior cholecystectomy. IMPRESSION: Mild constipation. Electronically signed by: Luis E Kwong III, MD (07/28/2020 1:01 AM) [facility] Heart Score C/O Chest Pain: No Risk Factors: Risk Factors: DM, Current or recent (<one month) smoker, HTN, HLP, family history of CAD, obesity. Risk Scores: Risk Factors: DM, Current or recent (<one month) smoker, HTN, HLP, family history of CAD, obesity. Course & Med Decision Making Course & Med Decision Making Patient is a 49-year-old female who presents with multiple complaints including stuffy nose, concern for constipation since she had not had a bowel movement in 2 days and some odor when she urinates Vital signs not concerning. Physical exam noted above. Patient given some Afri n for nasal congestion. X-rays of the belly showing mild constipation. Urinalysis normal. Given magnesium citrate. Discussed all findings with patient and advised on nutrition over the next couple of days and [id number] stool softeners. Last call primary care physician in the morning to update on ED visit. Gave return precautions to the ED. Patient grateful, verbalized understanding and agreed with plan of discharge. [] Dragon Disclaimer Dragon Disclaimer This electronic medical record was generated, in whole or in part, using a voice recognition dictation system. Departure Departure: Impression: Primary Impression: Constipation Additional Impression: Nasal congestion Disposition: HOME / SELF CARE / HOMELESS Condition: GOOD Referrals: TIFFANIE GARCIA (PCP) Patient Instructions: Constipation, Adult Additional Instructions: Please read all the attached information very carefully. Please adjust your diet over the next few days as discussed. Please be sure to drink plenty of fluids. Please call your primary care physician first thing in the morning to update on your ED visit and set up a follow-up appointment as needed. Please come back to the ED with new or concerning symptoms as discussed. Problem Qualifiers HÉCTOR AGRAWAL MD July 28, 2020 00:32
[2020-07-28] MEDS ORDERED: OXYMETAZOLINE 0.05% NASAL SPRAY 30ML BOTTLE. NS ONE (01:00)
--- NOTE | 2020-07-28 01:03 | RAD ---
One view abdomen pelvis HISTORY: Constipation Supine AP view abdomen pelvis There is air and stool scattered the colon. There is a paucity of small bowel gas. There is no obviou s free air on this supine view. There is evidence of prior cholecystectomy. IMPRESSION: Mild constipation. Electronically signed by: Luis E Kwong III, MD (07/28/2020 1:01 AM) [facility]
[2020-07-28] MEDS ORDERED: MAGNESIUM CITRATE 296 ML SOLUTION. PO ONE (01:30)
[2020-07-28 01:47] LABS: BILIRUBIN,URINE NEG (NEG); CLARITY,URINE CLEAR; COLOR,URINE YELLOW; GLUCOSE,URINE NEG (NEG); NITRITE,URINE NEG (NEG); UROBILINOGEN,URINE 0.2 mg/dL (0.2 mg/dL)
[2020-07-28 01:51] LABS: BACTERIA,URINE 0 /HPF (0-FEW); RBC,URINE 0 /HPF (0-2); SQUAMOUS EPITHELIAL CELL,UR FEW /LPF; WBC,URINE 0 /HPF (0-4)
[2020-07-28 02:00] VITALS: BP 148/87
== END 2020-07-28 02:00 | disposition home or self-care (01) ==
LOC: ER 00:19
DX: K59.00 Constipation, unspecified (principal); R09.81 Nasal congestion; E11.9 Type 2 diabetes mellitus without complications; I10 Essential (primary) hypertension; Z90.49 Acquired absence of other specified parts of digestive tract; Z90.89 Acquired absence of other organs; Z88.5 Allergy status to narcotic agent; Z88.6 Allergy status to analgesic agent
CPT/HCPCS: 74018; 81001; 99284

== ENCOUNTER 2020-07-31 22:46 | Emergency (ER) | payer OTHER ==
[~2020-07-31] VITALS: Ht 160 cm; Wt 104.0 kg
[2020-07-31] MEDS ORDERED: ONDANSETRON ODT 4 MG TAB.RAPDIS PO ONE (23:00)
[2020-07-31] MEDS ORDERED: IOHEXOL 300 MG/ML 75 ML VIAL. IV ONE (23:15)
--- NOTE | 2020-07-31 23:17 | PHYS DOC ---
Past History Past Medical History: Diabetes, Hypertension Additional Past Medical Histor: FLUID RETENTION Past Surgical History: Appendectomy, Cholecystectomy, Hysterectomy, Other Additional Past Surgical Histo: THYROID Smoking: Non-smoker Alcohol Use: None Drug Use: None Adult General Chief Complaint Chief Complaint: ABDOMINAL PAIN HPI HPI Patient is a 49-year-old female with a past medical history significant for diabetes, hypertension and chronic constipation who presents with a chief complaint of left flank pain and constipation. States she was in the emergency department a couple of nights ago with similar symptoms, and was given some me dicine in the emergency department which did help, as she went home and had several bowel movements. Denies any recent trauma, travels, fevers, chest pain, shortness of breath, dysuria, hematuria or blood in the stool. States she is otherwise eating and drinking normally. states she is taking all her medications as prescribed. Denies any known ill contacts. Denies any alcohol or drug use. Review of Systems Review of Systems Review of systems otherwise unremarkable except noted in HPI Current Medications Current Medications Current Medications Medications (Trade) Dose Ordered Sig/Jennifer Start Time Stop Time Status Last Admin Dose Admin Ondansetron HCl (Zofran Odt) 8 mg 1X ONCE 07/31/20 23:00 07/31/20 23:01 DC Allergies Allergies Allergies Coded Allergies Type Severity Reaction Last Updated Verified codeine Allergy Intermediate 05/14/19 Yes hydrocodone Allergy Intermediate rash 05/14/19 Yes oxycodone Allergy Intermediate hives/itch/and n/v. 05/14/19 Yes tramadol Allergy Intermediate hives 05/14/19 Yes I S O L A T I O N *CONTACT* Allergy Unknown 05/14/19 Yes morphine Allergy Unknown Itching 05/14/19 Yes Physical Exam Physical Exam Constitutional: Well developed, well nourished, no acute distress, non-toxic appearance. [] HENT: Normocephalic, atraumatic, bilateral external ears normal, oropharynx moist, no oral exudates, nose normal. [] Eyes: conjunctiva normal, no discharge. [] Neck: Normal range of motion, no tenderness, supple, no stridor. [] Cardiovascular:Heart rate regular rhythm, no murmur [] Lungs & Thorax: Bilateral breath sounds clear to auscultation [] Abdomen: Bowel sounds normal, soft, no tenderness, no masses, no pulsatile masses. [] Skin: Warm, dry, no erythema, no rash. [] Back: no CVA tenderness. [] Extremities: No tenderness, no cyanosis, no clubbing, ROM intact, no edema. [] Neurologic: Alert and oriented X 3, normal motor function, normal sensory function, no focal deficits noted. [] Psychologic: Affect normal, judgement normal, mood normal. [] EKG EKG [] Radiology/Procedures Radiology/Procedures []CT OF THE ABDOMEN AND PELVIS WITH IV CONTRAST. History: Left flank pain Comparison:March 17, 2020. Procedure: Contiguous axial images of the abdomen and pelvis were performed after the administration of 75 cc of Omni 300 IV contrast. Oral contrast: No. Findings: The colon is mildly distended with air and fluid. Liver: 1.2 cm cyst in the right lobe was seen previously. There has been prior cholecystectomy. The appendix is not well seen. Spleen: Unremarkable Pancreas: Unremarkable Adrenal Glands: Unremarkable Kidneys: Unremarkable There is no mass or lymphadenopathy. There is no free air. There is no free fluid. The urinary bladder is mostly collapsed but appears normal. Impression: Mild colonic ileus. End Impression PQRS Compliance Statement: One or more of the following individualized dose reduction techniques were ut ilized for this examination: 1. Automated exposure control 2. Adjustment of the mA and/or kV according to patient size 3. Use of iterative reconstruction technique Electronically signed by: Luis E Kwong III, MD (08/01/2020 12:25 AM) [facility] Heart Score C/O Chest Pain: No Risk Factors: Risk Factors: DM, Current or recent (<one month) smoker, HTN, HLP, family history of CAD, obesity. Risk Scores: Risk Factors: DM, Current or recent (<one month) smoker, HTN, HLP, family history of CAD, obesity. Course & Med Decision Making Course & Med Decision Making Patient is a 49-year-old female presents with a chief complaint of constipation and left-sided abdominal pain associated with nausea but no vomiting. Vital signs notable for hypertension. Physical exam noted above. Patient given Zofran for nausea. Denied need for pain medication at this time. Laboratory analysis not concerning. CT notable for some fluid and air in the bowel suggestive of ileus. Started patient on Dulcolax laxatives. Discussed change in diet over the next couple of days to facilitate bowel movement. Advised to call primary care physician first thing in the morning to update on ED visit and set up a follow-up as soon as possible. Patient grateful, verbalized understanding and agreed with plan of discharge. Rosalba Disclaimer Violetaon Disclaimer This electronic medical record was generated, in whole or in part, using a voice recognition dictation system. Departure Departure: Impression: Primary Impression: Abdominal pain Additional Impression: Constipation Disposition: HOME / SELF CARE / HOMELESS Condition: GOOD Referrals: TIFFANIE GARCIA (PCP) Patient Instructions: Bisacodyl suppositories, Bisacodyl tablets and capsules, Constipation, Adult, Diet - 2000 Calorie Diabetic, Ileus Additional Instructions: Please read all the attached information very carefully. Over the next couple of days, please consume a light clear diet with things such as chicken soup, Jell-O and things of the like as discussed. You can use [id number] laxatives to increase bowel movement frequency as discussed. Please call your primary care physician first thing tomorrow to discuss your ED visit and findings and set up an appointment as soon as possible. Please come back to emergency department immediately with new or concerning symptoms as discussed. Problem Qualifiers HÉCTOR AGRAWAL MD July 31, 2020 23:17
[2020-07-31 23:30] LABS: BILIRUBIN,URINE NEG (NEG); CLARITY,URINE CLEAR; COLOR,URINE YELLOW; GLUCOSE,URINE NEG (NEG); NITRITE,URINE NEG (NEG); UROBILINOGEN,URINE 0.2 mg/dL (0.2 mg/dL)
[2020-07-31] MEDS ORDERED: CONTRAST GIVEN. MC PRN (23:30)
[2020-07-31 23:31] LABS: BASO # 0.1 x10^3/uL (0.0-0.2); BASO % 1 % (0-3); EOS # 0.1 x10^3/uL (0.0-0.7); EOS % 2 % (0-3); HEMATOCRIT 41.9 % (36.0-47.0); HEMOGLOBIN 14.2 g/dL (12.0-15.5); LYMPH # 1.7 x10^3/uL (1.0-4.8); LYMPH % 31 % (24-48); MEAN CORPUSCULAR HEMOGLOBIN 30 pg (25-35); MEAN CORPUSCULAR HGB CONC 34 g/dL (31-37); MEAN CORPUSCULAR VOLUME 87 fL (79-100); MONO # 0.5 x10^3/uL (0.0-1.1); MONO % 10 % (0-9); NEUT # 3.1 x10^3uL (1.8-7.7); NEUT % 56 % (31-73); PLATELET COUNT 368 x10^3/uL (140-400); RED BLOOD COUNT 4.79 x10^6/uL (3.50-5.40); RED CELL DISTRIBUTION WIDTH 14.7 % (11.5-14.5); WHITE BLOOD COUNT 5.6 x10^3/uL (4.0-11.0)
[2020-07-31 23:32] LABS: BACTERIA,URINE 0 /HPF (0-FEW); RBC,URINE 0 /HPF (0-2); SQUAMOUS EPITHELIAL CELL,UR OCC /LPF; WBC,URINE 0 /HPF (0-4)
[2020-07-31 23:43] LABS: CALCIUM 8.7 mg/dL (8.5-10.1); CREATININE 1.1 mg/dL (0.6-1.0); GFR 64.1; POTASSIUM 3.6 mmol/L (3.5-5.1)
[2020-07-31 23:46] LABS: ALBUMIN 3.6 g/dL (3.4-5.0); ALBUMIN/GLOBULIN RATIO 0.7 (1.0-1.7); TOTAL BILIRUBIN 0.3 mg/dL (0.2-1.0); TOTAL PROTEIN 8.6 g/dL (6.4-8.2)
--- NOTE | 2020-08-01 00:27 | RAD ---
CT OF THE ABDOMEN AND PELVIS WITH IV CONTRAST. History: Left flank pain Comparison:March 17, 2020. Procedure: Contiguous axial images of the abdomen and pelvis were performed after the administration of 75 cc o f Omni 300 IV contrast. Oral contrast: No. Findings: The colon is mildly distended with air and fluid. Liver: 1.2 cm cyst in the right lobe was seen previously. There has been prior cholecystectomy. The appendix is not well seen. Spleen: Unremarkable Pancreas: Unremarkable Adrenal Glands: Unremarkable Kidneys: Unremarkable There is no mass or lymphadenopathy. There is no free air. There is no free fluid. The urinary bladder is mostly collapsed but appears normal. Impression: Mild colonic ileus. End Impression PQRS Compliance Statement: One or more of the following individualized dose reduction techniques were utilized for this examinat ion: 1. Automated exposure control 2. Adjustment of the mA and/or kV according to patient size 3. Use of iterative reconstruction technique Electronically signed by: Luis E Kwong III, MD (08/01/2020 12:25 AM) [facility]
[2020-08-01 00:42] VITALS: BP 147/82
[2020-08-01] MEDS ORDERED: BISACODYL TAB 5 MG TABLET.DR. PO ONE (00:45)
== END 2020-08-01 01:00 | disposition home or self-care (01) ==
LOC: ER 22:46
DX: K59.00 Constipation, unspecified (principal); E11.9 Type 2 diabetes mellitus without complications; I10 Essential (primary) hypertension; Z88.6 Allergy status to analgesic agent; Z88.8 Allergy status to other drugs, medicaments and biological substances; Z90.49 Acquired absence of other specified parts of digestive tract; Z90.710 Acquired absence of both cervix and uterus
CPT/HCPCS: 36415; 74177; 80053; 81001; 83690; 85025; 99285; Q0162; Q9967

== ENCOUNTER 2020-08-14 05:28 | Emergency (ER) | payer OTHER ==
[~2020-08-14] VITALS: Ht 162.6 cm; Wt 102.2 kg
[2020-08-14 05:28] VITALS: BP 120/72
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
[2020-08-14 07:12] LABS: BASO # 0.1 x10^3/uL (0.0-0.2); BASO % 1 % (0-3); EOS # 0.1 x10^3/uL (0.0-0.7); EOS % 3 % (0-3); HEMATOCRIT 35.9 % (36.0-47.0); LYMPH # 2.1 x10^3/uL (1.0-4.8); LYMPH % 41 % (24-48); MEAN CORPUSCULAR HEMOGLOBIN 29 pg (25-35); MEAN CORPUSCULAR HGB CONC 33 g/dL (31-37); MEAN CORPUSCULAR VOLUME 87 fL (79-100); MONO # 0.5 x10^3/uL (0.0-1.1); MONO % 9 % (0-9); NEUT # 2.4 x10^3uL (1.8-7.7); NEUT % 46 % (31-73); PLATELET COUNT 313 x10^3/uL (140-400); RED BLOOD COUNT 4.12 x10^6/uL (3.50-5.40); RED CELL DISTRIBUTION WIDTH 14.5 % (11.5-14.5); WHITE BLOOD COUNT 5.1 x10^3/uL (4.0-11.0)
[2020-08-14 07:18] LABS: CREATININE 1.2 mg/dL (0.6-1.0); POTASSIUM 3.6 mmol/L (3.5-5.1)
[2020-08-14 07:24] LABS: ALBUMIN/GLOBULIN RATIO 0.8 (1.0-1.7); TOTAL BILIRUBIN 0.2 mg/dL (0.2-1.0)
[2020-08-14 07:58] LABS: BARBITURATES NEG (NEG); BENZODIAZEPINES NEG (NEG); CANNABINOIDS POS (NEG); COCAINE NEG (NEG); METHADONE NEG (NEG); OPIATES NEG (NEG); PHENCYCLIDINE NEG (NEG)
[2020-08-14 07:59] LABS: AMPHETAMINE/METHAMPHETAMINE NEG (NEG)
[2020-08-14 08:12] LABS: BILIRUBIN,URINE NEG (NEG); CLARITY,URINE CLEAR; COLOR,URINE STRAW; GLUCOSE,URINE NEG (NEG); NITRITE,URINE NEG (NEG); UROBILINOGEN,URINE 0.2 mg/dL (0.2 mg/dL)
[2020-08-14 08:13] LABS: BACTERIA,URINE 0 /HPF (0-FEW); RBC,URINE 0 /HPF (0-2); WBC,URINE RARE /HPF (0-4)
== END 2020-08-14 08:42 | disposition home or self-care (01) ==
LOC: ER 05:28
DX: M25.561 Pain in right knee (principal); F12.121 Cannabis abuse with intoxication delirium; Z88.6 Allergy status to analgesic agent; Z88.8 Allergy status to other drugs, medicaments and biological substances
CPT/HCPCS: 36415; 70450; 72125; 73562; 80053; 80307; 81001; 85025; 99285; G0480

== ENCOUNTER → 2020-08-20 | Outpatient (CLI) | payer OTHER ==
[2020-08-14 05:28] VITALS: BP 120/72
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
== END ==
LOC: RAD 11:15
PROVIDERS: ATTEND Physician Assistant
DX: M79.631 Pain in right forearm (principal)
CPT/HCPCS: 73090

== ENCOUNTER 2020-08-31 12:14 | Emergency (ER) | payer OTHER ==
[~2020-08-31] VITALS: Ht 160 cm; Wt 104.6 kg
[2020-08-31 12:36] VITALS: BP 166/114
[2020-08-31] MEDS ORDERED: CYCLOBENZAPRINE 10 MG TABLET. PO ONE (12:45)
[2020-08-31] MEDS ORDERED: IBUPROFEN 600 MG TABLET. PO ONE (12:45)
[2020-08-31] MEDS ORDERED: ONDANSETRON ODT 4 MG TAB.RAPDIS PO ONE (13:00)
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
[2020-08-31] MEDS ORDERED: oxyCODONE/APAP 5/325 1 TAB TABLET PO ONE (13:15)
--- NOTE | 2020-08-31 13:24 | RAD ---
Exam Date: 08/31/2020 12:[address] ABDOMEN+PELVIS WO Indication: Reason: LUQ PAIN / Spl. Instructions: / History: . TECHNIQUE: CT examination of the abdomen and pelvis was performed without oral or intravenous contra st. One or more of the following dose reduction techniques were utilized: *Automated exposure control (AEC) *Adjustment of mA and/or kV according to patient size *Use of iterative reconstruction technique *CT scan done according to ALARA, or ALARA/IMAGE GENTLY COMPARISON: August 01, 2020 FINDINGS: The visualized lung bases are clear. Small liver cyst is again seen. Status post cholecystectomy. The liver, spleen, pancreas, and adrenal glands are otherwise normal. The kidneys are normal bilaterally. No hydronephrosis or hydroureter is seen. No urinary tract calc edwin are seen. Urinary bladder is normal in appearance. There is no bowel obstruction or inflammation. No evidence for acute appendicitis. No significant atherosclerotic calcifications are seen. No lymphadenopathy or ascites is seen. Degenerative changes are seen in the spine. Sclerosis of the left SI joint is noted. IMPRESSION: Normal appearance of the kidneys and bladder. No hydronephrosis or hydroureter. No urinary tract ca lculi. Electronically signed by: Otoniel Cotter MD (08/31/2020 1:22 PM) [facility]
--- NOTE | 2020-08-31 13:38 | RAD ---
INDICATION: Reason: L SIDED ABDOMINAL PAIN / Spl. Instructions: / History: COMPARISON: February 2019 FINDINGS: Single view of chest obtained. No focal airspace consolidation. Cardiomediastinal contour unremarkable. No acute osseous abnormality. IMPRESSION: * No focal airspace consolidation or edema. Electronically signed by: Nico Galvan MD (08/31/2020 1:36 PM) [id number]
== END 2020-08-31 14:02 | disposition home or self-care (01) ==
LOC: ER 12:14
DX: R10.12 Left upper quadrant pain (principal); E11.9 Type 2 diabetes mellitus without complications; I10 Essential (primary) hypertension; Z88.5 Allergy status to narcotic agent; Z88.8 Allergy status to other drugs, medicaments and biological substances; V98.8XXA Other specified transport accidents, initial encounter; Y93.89 Activity, other specified; Y92.89 Other specified places as the place of occurrence of the external cause; Y99.8 Other external cause status
CPT/HCPCS: 71045; 74176; 99284; Q0162

== ENCOUNTER 2020-09-21 21:03 | Emergency (ER) | payer OTHER ==
[~2020-09-21] VITALS: Ht 160 cm; Wt 104.6 kg
[2020-09-21 21:03] VITALS: BP 162/102
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
[2020-09-21] MEDS ORDERED: KETOROLAC 60 MG/2 ML VIAL. IM ONE (22:00)
[2020-09-21] MEDS ORDERED: diphenhydrAMINE HCL 25 MG CAPSULE PO ONE (22:45)
== END 2020-09-21 22:40 | disposition home or self-care (01) ==
LOC: ER 21:03
DX: R10.12 Left upper quadrant pain (principal); R10.32 Left lower quadrant pain; R51.9 Headache, unspecified; M79.602 Pain in left arm; R22.31 Localized swelling, mass and lump, right upper limb; E11.9 Type 2 diabetes mellitus without complications; I10 Essential (primary) hypertension; Z88.5 Allergy status to narcotic agent; Z88.6 Allergy status to analgesic agent; Z88.8 Allergy status to other drugs, medicaments and biological substances
CPT/HCPCS: 96372; 99283; J1885; Q0163

== ENCOUNTER → 2020-10-04 | Outpatient (CLI) | payer OTHER ==
[2020-09-21 21:03] VITALS: BP 162/102
--- NOTE | 2020-10-04 16:05 | RAD ---
Lumbar spine 3 views. HISTORY: Acute left-sided low back pain without sciatica M 55.5 3 views were taken of the lumbar spine. There are mild hypertrophic and degenerative changes. There i s disc space narrowing at L2-3. There is no abnormal subluxation. Patient's had a cholecystectomy. IMPRESSION: 1. Mild degenerative and hypertrophic changes. 2. Degenerative disc disease L2-3. Electronically signed by: Dago Darnell MD (10/04/2020 4:02 PM) [facility]
== END ==
LOC: DXRAD 15:44
PROVIDERS: ATTEND Physician Assistant
DX: M51.36 Other intervertebral disc degeneration, lumbar region (principal); M48.061 Spinal stenosis, lumbar region without neurogenic claudication
CPT/HCPCS: 72100

== ENCOUNTER 2020-10-14 12:35 | Emergency (ER) | payer OTHER ==
[~2020-10-14] VITALS: Ht 160 cm; Wt 107.9 kg
[~2020-10-14 12:35] MED LIST changes: -QUET50TA PO; +QUET50TA3 PO
[2020-10-14 13:29] VITALS: BP 148/93
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
[2020-10-14] MEDS: KETOROLAC 60 MG/2 ML VIAL. IM ONE (13:36)
[2020-10-14] MEDS: ORPHENADRINE CITRATE 60 MG/2 ML VIAL. IM ONE (13:36)
[2020-10-14 13:52] LABS: BILIRUBIN,URINE NEG (NEG); CLARITY,URINE HAZY; COLOR,URINE YELLOW; GLUCOSE,URINE NEG (NEG); NITRITE,URINE POS (NEG); UROBILINOGEN,URINE 0.2 mg/dL (0.2 mg/dL)
[2020-10-14 13:54] LABS: BACTERIA,URINE MANY /HPF (0-FEW); BARBITURATES NEG (NEG); BENZODIAZEPINES NEG (NEG); CANNABINOIDS POS (NEG); COCAINE NEG (NEG); METHADONE NEG (NEG); OPIATES NEG (NEG); PHENCYCLIDINE NEG (NEG); RBC,URINE 0 /HPF (0-2); SQUAMOUS EPITHELIAL CELL,UR FEW /LPF
[2020-10-14 13:58] LABS: AMPHETAMINE/METHAMPHETAMINE NEG (NEG)
== END 2020-10-14 13:59 | disposition home or self-care (01) ==
LOC: ER 12:35
DX: G89.11 Acute pain due to trauma (principal); E11.9 Type 2 diabetes mellitus without complications; I10 Essential (primary) hypertension; Z88.5 Allergy status to narcotic agent; Z88.8 Allergy status to other drugs, medicaments and biological substances; Z88.6 Allergy status to analgesic agent
CPT/HCPCS: 36415; 80307; 81001; 87086; 96372; 99284; J1885; J2360

== ENCOUNTER 2020-10-23 18:04 | Emergency (ER) | payer OTHER ==
[~2020-10-23] VITALS: Ht 160 cm; Wt 107.8 kg
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
[2020-10-23] MEDS ORDERED: ONDANSETRON PF 4 MG/2 ML VIAL. IVP ONE (19:00)
[2020-10-23] MEDS ORDERED: IV NORMAL SALINE 1,000ML 1,000 ML IV SCH (19:00)
[2020-10-23] MEDS ORDERED: FAMOTIDINE 20 MG/2 ML VIAL IVP ONE (19:00)
[2020-10-23] MEDS ORDERED: LIDO:MAALOX 1:1 20 ML SINGLE DOSE. PO ONE (19:00)
[2020-10-23 19:37] LABS: BASO % 1 % (0-3); EOS # 0.1 x10^3/uL (0.0-0.7); EOS % 2 % (0-3); HEMOGLOBIN 12.1 g/dL (12.0-15.5); LYMPH # 1.4 x10^3/uL (1.0-4.8); LYMPH % 31 % (24-48); MEAN CORPUSCULAR HEMOGLOBIN 30 pg (25-35); MEAN CORPUSCULAR HGB CONC 34 g/dL (31-37); MEAN CORPUSCULAR VOLUME 87 fL (79-100); MONO # 0.4 x10^3/uL (0.0-1.1); MONO % 10 % (0-9); NEUT # 2.6 x10^3uL (1.8-7.7); NEUT % 57 % (31-73); PLATELET COUNT 308 x10^3/uL (140-400); RED BLOOD COUNT 4.12 x10^6/uL (3.50-5.40); RED CELL DISTRIBUTION WIDTH 14.6 % (11.5-14.5); WHITE BLOOD COUNT 4.5 x10^3/uL (4.0-11.0)
[2020-10-23 19:55] LABS: CREATININE 1.2 mg/dL (0.6-1.0); POTASSIUM 3.8 mmol/L (3.5-5.1)
[2020-10-23 20:01] LABS: ALBUMIN 3.2 g/dL (3.4-5.0); ALBUMIN/GLOBULIN RATIO 0.8 (1.0-1.7); TOTAL BILIRUBIN 0.1 mg/dL (0.2-1.0); TOTAL PROTEIN 7.4 g/dL (6.4-8.2)
[2020-10-23 21:13] LABS: BILIRUBIN,URINE NEG (NEG); CLARITY,URINE HAZY; COLOR,URINE YELLOW; GLUCOSE,URINE NEG (NEG); UROBILINOGEN,URINE 0.2 mg/dL (0.2 mg/dL)
[2020-10-23 21:14] LABS: BACTERIA,URINE MANY /HPF (0-FEW); NITRITE,URINE NEG (NEG); RBC,URINE RARE /HPF (0-2); SQUAMOUS EPITHELIAL CELL,UR OCC /LPF
[2020-10-23 21:40] VITALS: BP 148/83
[2020-10-23] MEDS ORDERED: IV NORMAL SALINE 50ML 50 ML ONE (21:41)
[2020-10-23] MEDS ORDERED: cefTRIAXone SODIUM 1 GM VIAL ONE (21:41)
[2020-10-23] MEDS ORDERED: CEPH500C PO (21:43)
[2020-10-23] MEDS ORDERED: ACETAMINOPHEN 500 MG TABLET PO ONE (22:00)
== END 2020-10-23 22:02 | disposition home or self-care (01) ==
LOC: ER 18:04
DX: N39.0 Urinary tract infection, site not specified (principal); E11.9 Type 2 diabetes mellitus without complications; I10 Essential (primary) hypertension; Z90.49 Acquired absence of other specified parts of digestive tract; Z88.5 Allergy status to narcotic agent; Z90.710 Acquired absence of both cervix and uterus
CPT/HCPCS: 36415; 80053; 81001; 81025; 83690; 85025; 96361; 96365; 96375; 99284; J0696; J2405; J3490; J7030

== ENCOUNTER 2021-01-12 12:22 | Emergency (ER) | payer OTHER ==
[~2021-01-12] VITALS: Ht 160 cm; Wt 107.8 kg
[~2021-01-12 12:22] MED LIST changes: +CEPH500C PO; -CYCL-331 PO; +CYCL10TA19 PO; +DICY20TA PO; -DICY20TA3 PO; -FLUO20CA20 PO; +FLUO20CA22 PO; -LEVO500T8 PO; +LEVO500T9 PO; +MONT-38 PO; -MONT10TA20 PO; +POTA-121 PO; -POTA20TA4 PO
--- NOTE | 2021-01-12 12:51 | PHYS DOC ---
Past History Past Medical History: Diabetes, Hypertension Additional Past Medical Histor: FLUID RETENTION Past Surgical History: Cholecystectomy, Hysterectomy, Tonsillectomy Additional Past Surgical Histo: THYROID, D&C, R hand sx Smoking: Non-smoker Alcohol Use: None Drug Use: None General Adult EDM: Chief Complaint: ABDOMINAL PAIN HPI: HPI: 50-year-old female presents with right lower quadrant and epigastric abdominal pain. It started yesterday nowhere. She was not doing anything in particular. She had not eaten dinner when the pain started. It has persisted to today and she decided she should come in for evaluation. She has had some nausea but no vomiting. Denies fever or chills. No recent trauma. She has been out of her insulin for 3 days. Review of Systems: Review of Systems: Constitutional: Denies fever or chills Eyes: Denies change in visual acuity HENT: Denies nasal congestion or sore throat Respiratory: Denies cough or shortness of breath Cardiovascular: Denies chest pain or edema GI: Right lower quadrant, epigastric abdominal pain, nausea. Denies vomiting, bloody stools or diarrhea : Denies dysuria Musculoskeletal: Denies back pain or joint pain Integument: Denies rash Neurologic: Denies headache, focal weakness or sensory changes Endocrine: Denies polyuria or polydipsia Lymphatic: Denies swollen glands Psychiatric: Denies depression or anxiety Allergies: Allergies: Allergies Coded Allergies Type Severity Reaction Last Updated Verified codeine Allergy Intermediate 10/23/20 Yes oxycodone Allergy Intermediate hives/itch/and n/v. 10/23/20 Yes tramadol Allergy Intermediate hives 10/23/20 Yes I S O L A T I O N *CONTACT* Allergy Unknown 05/14/19 Yes Physical Exam: PE: Constitutional: Well developed, well nourished, morbidly obese, no acute distress, non-toxic appearance. [] HENT: Normocephalic, atraumatic, bilateral external ears normal, oropharynx moist, no oral exudates, nose normal. [] Eyes: PERRLA, EOMI, conjunctiva normal, no discharge. [] Neck: Normal range of motion, no tenderness, supple, no stridor. [] Cardiovascular: Heart rate regular rhythm, no murmur [] Lungs & Thorax: Bilateral breath sounds clear to auscultation [] Abdomen: Bowel sounds normal, soft, epigastric and right-sided tenderness, no masses, no pulsatile masses. [] Skin: Warm, dry, no erythema, no rash. [] Back: No tenderness, no CVA tenderness. [] Extremities: No tenderness, no cyanosis, no clubbing, ROM intact, no edema. [] Neurologic: Alert and oriented X 3, normal motor function, normal sensory function, no focal deficits noted. [] Psychologic: Affect normal, judgement normal, mood normal. [] EKG: EKG: [] Radiology/Procedures: Radiology/Procedures: [] Impressions: INDICATION: Reason: epigastric pain OMNI 300 75 ML / Spl. Instructions: / History: COMPARISON: August 31, 2020 TECHNIQUE: Axial CT images were obtained through the abdomen and pelvis with intravenous contrast. One or more of the following individualized dose reduction techniques were utilized for this examination: 1. Automated exposure control; 2. Adjustment of the mA and/or kV according to patient size; 3. Use of iterative reconstruction technique. FINDINGS: Linear opacities at lung bases could be from atelectasis. Repeat demonstration of mildly prominent lymph node at the chest base abutting the pericardium. Vascular: No abdominal aortic aneurysm. Hepatobiliary: Postcholecystectomy changes with some prominence of the bile ducts which is commonly seen postoperatively. Probable cyst within the liver. Pancreas: No peripancreatic edema. Spleen: Spleen unremarkable. Renal/Bladder: Urinary bladder is decompressed. No hydronephrosis. At the right adrenal region there is a masslike structure seen measuring up to 23 mm. Gastrointestinal: Colonic diverticulosis. There is some wall thickening of por tion of the left side of the colon but the colon is not very distended at this location. Colonic diverticulosis. There is a couple of splenules or prominent lymph nodes in the left upper quadrant again seen. Appendix not well seen. Sclerosis at the left greater than right sacroiliac joint which can be seen with degeneration. Mild retrolisthesis of L4 on 5 and L3 on 4. Degenerative changes the spine with some disc protrusions and osteophyte formation. IMPRESSION: * Portion of the left side of the colon appears mildly thick walled but this is in a region with lack of distention. Could be from lack of distention but would correlate with symptoms since an early colitis could have this appearance if the patient has appropriate symptoms. * Right adrenal nodule is seen and incompletely characterized on this exam. If more complete characterization is desired MRI or CT adrenal protocol could better characterize. Electronically signed by: Rd Galvan MD (01/12/2021 1:36 PM) [id number] DICTATED AND SIGNED BY: RD GALVAN MD DATE: 01/12/21 1313 CC: PAWAN GAMBOA DO; KRYSTINA MOORE MD ~MTH0 0 Heart Score: C/O Chest Pain: N/A Risk Factors: Risk Factors: DM, Current or recent (<one month) smoker, HTN, HLP, family history of CAD, obesity. Risk Scores: Score 0 - 3: 2.5% MACE over next 6 weeks - Discharge Home Score 4 - 6: 20.3% MACE over next 6 weeks - Admit for Clinical Observation Score 7 - 10: 72.7% MACE over next 6 weeks - Early Invasive Strategies Course & Med Decision Making: Course & Med Decision Making Pertinent Labs and Imaging studies reviewed. (See chart for details) The patient's labs are unremarkable except for slightly low potassium of 3.3. Her urinalysis is negative for infection. Her CT of the abdomen and pelvis shows some low back spinal findings. It also shows mildly thickened left colon as well as a 23 mm nodule or mass on the adrenal gland. See official read for more details. Unsure of the significance of these findings that they do not correlate to her locations of pain. I have advised that she follow-up with her primary care physician about the adrenal mass. This does not appear to be life-threatening at this time. She is stable for discharge. [] Dragon Disclaimer: Rosalba Disclaimer: This electronic medical record was generated, in whole or in part, using a voice recognition dictation system. Departure Departure: Impression: Primary Impression: Adrenal nodule Additional Impression: Abdominal pain Qualified Codes: R10.31 - Right lower quadrant pain Disposition: 01 HOME / SELF CARE / HOMELESS Condition: STABLE Referrals: KRYSTINA MOORE MD (PCP) Patient Instructions: Abdominal Pain (Nonspecific) PAWAN GAMBOA DO Jan 12, 2021 12:51
[2021-01-12] MEDS ORDERED: IOHEXOL 300 MG/ML 75 ML VIAL. IV ONE (13:00)
[2021-01-12] MEDS ORDERED: CONTRAST GIVEN. MC PRN (13:00)
[2021-01-12 13:15] LABS: BASO % 1 % (0-3); EOS # 0.1 x10^3/uL (0.0-0.7); EOS % 2 % (0-3); HEMATOCRIT 38.8 % (36.0-47.0); HEMOGLOBIN 12.7 g/dL (12.0-15.5); LYMPH # 1.3 x10^3/uL (1.0-4.8); LYMPH % 33 % (24-48); MEAN CORPUSCULAR HEMOGLOBIN 29 pg (25-35); MEAN CORPUSCULAR HGB CONC 33 g/dL (31-37); MEAN CORPUSCULAR VOLUME 88 fL (79-100); MONO # 0.3 x10^3/uL (0.0-1.1); MONO % 8 % (0-9); NEUT # 2.3 x10^3uL (1.8-7.7); NEUT % 57 % (31-73); PLATELET COUNT 315 x10^3/uL (140-400); RED BLOOD COUNT 4.44 x10^6/uL (3.50-5.40); RED CELL DISTRIBUTION WIDTH 15.4 % (11.5-14.5); WHITE BLOOD COUNT 4.1 x10^3/uL (4.0-11.0)
[2021-01-12 13:18] LABS: HEMOGLOBIN ISTAT 12.6 gm/dL; POTASSIUM ISTAT 3.3 mmol/L (3.5-5.0)
[2021-01-12 13:32] LABS: BILIRUBIN,URINE NEG (NEG); CLARITY,URINE CLEAR; COLOR,URINE YELLOW; GLUCOSE,URINE NEG (NEG)
[2021-01-12 13:33] LABS: BACTERIA,URINE MOD /HPF (0-FEW); NITRITE,URINE NEG (NEG); RBC,URINE RARE /HPF (0-2); SQUAMOUS EPITHELIAL CELL,UR FEW /LPF; UROBILINOGEN,URINE 0.2 mg/dL (0.2 mg/dL); WBC,URINE OCC /HPF (0-4)
--- NOTE | 2021-01-12 13:38 | RAD ---
INDICATION: Reason: epigastric pain OMNI 300 75 ML / Spl. Instructions: / History: COMPARISON: August 31, 2020 TECHNIQUE: Axial CT images were obtained through the abdomen and pelvis with intravenous contrast. One or more of the following individualized dose reduction techniques were utilized for this examinat ion: 1. Automated exposure control; 2. Adjustment of the mA and/or kV according to patient size; 3 . Use of iterative reconstruction technique. FINDINGS: Linear opacities at lung bases could be from atelectasis. Repeat demonstration of mildly prominent ly mph node at the chest base abutting the pericardium. Vascular: No abdominal aortic aneurysm. Hepatobiliary: Postcholecystectomy changes with some prominence of the bile ducts which is commonly s een postoperatively. Probable cyst within the liver. Pancreas: No peripancreatic edema. Spleen: Spleen unremarkable. Renal/Bladder: Urinary bladder is decompressed. No hydronephrosis. At the right adrenal region there is a masslike structure seen measuring up to 23 mm. Gastrointestinal: Colonic diverticulosis. There is some wall thickening of portion of the left side o f the colon but the colon is not very distended at this location. Colonic diverticulosis. There is a couple of splenules or prominent lymph nodes in the left upper quadrant again seen. Appendix not well seen. Sclerosis at the left greater than right sacroiliac joint which can be seen with degeneration. Mild retrolisthesis of L4 on 5 and L3 on 4. Degenerative changes the spine with some disc protrusions and osteophyte formation. IMPRESSION: * Portion of the left side of the colon appears mildly thick walled but this is in a region with la ck of distention. Could be from lack of distention but would correlate with symptoms since an early c olitis could have this appearance if the patient has appropriate symptoms. * Right adrenal nodule is seen and incompletely characterized on this exam. If more complete charact erization is desired MRI or CT adrenal protocol could better characterize. Electronically signed by: Nico Galvan MD (01/12/2021 1:36 PM) [id number]
[2021-01-12 13:39] VITALS: BP 120/77
[2021-01-12] MEDS ORDERED: HYDROcodone/APAP 5/325MG 1 TAB TABLET PO ONE (14:00)
[2021-01-12] MEDS ORDERED: HYDR-2759 PO (14:02)
[2021-01-12 15:27] LABS: ALBUMIN 3.5 g/dL (3.4-5.0); TOTAL BILIRUBIN 0.3 mg/dL (0.2-1.0); TOTAL PROTEIN 8.2 g/dL (6.4-8.2)
[2021-01-12 15:51] LABS: DIRECT BILIRUBIN 0.1 mg/dL (0.0-0.2)
== END 2021-01-12 14:20 | disposition home or self-care (01) ==
LOC: ER 12:22
DX: E27.8 Other specified disorders of adrenal gland (principal); R10.13 Epigastric pain; E11.9 Type 2 diabetes mellitus without complications; I10 Essential (primary) hypertension; Z90.49 Acquired absence of other specified parts of digestive tract; Z90.710 Acquired absence of both cervix and uterus; Z88.5 Allergy status to narcotic agent; Z88.6 Allergy status to analgesic agent; Z88.8 Allergy status to other drugs, medicaments and biological substances
CPT/HCPCS: 36415; 74177; 80047; 80076; 81001; 83690; 85025; 87086; 99285; Q9967; 87077; 87186

== ENCOUNTER 2021-04-19 09:24 | Emergency (ER) | payer OTHER ==
[~2021-04-19] VITALS: Ht 160 cm; Wt 107.8 kg
[2021-04-19 09:24] VITALS: BP 158/77
[~2021-04-19 09:24] MED LIST changes: +HYDR-2759 PO
[2021-04-19] MEDS ORDERED: HYDR-2155 PO (10:27)
--- NOTE | 2021-04-19 10:28 | PHYS DOC ---
Past History Past Medical History: Diabetes, Hypertension Additional Past Medical Histor: FLUID RETENTION Past Surgical History: Cholecystectomy, Hysterectomy, Tonsillectomy Additional Past Surgical Histo: THYROID, D&C, R hand sx Smoking: Non-smoker Alcohol Use: None Drug Use: None Adult General Chief Complaint Chief Complaint: DENTAL PROBLEM HPI HPI Patient is a 50-year-old female presenting for dental pain. This is an acute on chronic issue. She is well followed in outpatient setting by primary care and dentist. Reports she had a dental infection and was started on an unknown antibiotic approximately 1 week ago and finished these as scheduled to completion. Reports she went to her dentist 2 days ago and had a tooth extracted, no pain medications were given. She has been taking Tylenol and ibuprofen without significant relief in symptoms. She slept poorly overnight due to the pain prompting her to come in today for pain control. No fever or other concerning signs or symptoms Review of Systems Review of Systems Fourteen body systems of review of systems have been reviewed. See HPI for pertinent positives and negative responses, other watters all other systems are negative, non-pertinent or non-contributory Allergies Allergies Allergies Coded Allergies Type Severity Reaction Last Updated Verified codeine Allergy Intermediate 10/23/20 Yes oxycodone Allergy Intermediate hives/itch/and n/v. 10/23/20 Yes tramadol Allergy Intermediate hives 10/23/20 Yes I S O L A T I O N *CONTACT* Allergy Unknown 05/14/19 Yes Physical Exam Physical Exam Constitutional: Well developed, well nourished, no acute distress, non-toxic appearance. HENT: Normocephalic, atraumatic, bilateral external ears normal, oropharynx moist, no oral exudates, nose normal. Missing teeth consistent with recent extraction at #4 that appears erythematous and irritated without any obvious abscess formation, periapical abscess or other concerning infectious findings Eyes: PERRLA, EOMI, conjunctiva normal, no discharge. Neck: Normal range of motion, no tenderness, supple, no stridor. Cardiovascular: Heart rate regular per monitor Lungs & Thorax: No respiratory distress or accessory muscle use, bilateral chest rise Abdomen: Abdomen soft, non-tender, bowel sounds present in all quadrants, no guarding or rebound, nonacute abdomen. Skin: Warm, dry, no erythema, no rash. Back: No tenderness, no CVA tenderness. Extremities: No tenderness, no cyanosis, no clubbing, ROM intact, no edema. Neurologic: Alert and oriented X 3, grossly normal motor & sensory function, no focal deficits noted. Psychologic: Affect normal, judgement normal, mood normal. EKG EKG [] Radiology/Procedures Radiology/Procedures [] Heart Score C/O Chest Pain: No Risk Factors: Risk Factors: DM, Current or recent (<one month) smoker, HTN, HLP, family history of CAD, obesity. Risk Scores: Risk Factors: DM, Current or recent (<one month) smoker, HTN, HLP, family history of CAD, obesity. Course & Med Decision Making Course & Med Decision Making ABCs unremarkable HPI and physical exam consistent with pain status post recent dental extraction. KTRACS reviewed concerning for ongoing benzodiazepine use in addition to frequent opiate pain medications I disclosed this with patient and discussed my high concern for concomitant use of benzodiazepine and opiates. Reports she uses benzodiazepine for sleep purposes only, I advised her today after administering narcotic pain medication for pain to hold benzo tonight Discussed I am only comfortable giving a supply that will last her until tomorrow, advised she needs to contact her dentist to review ongoing pain and discuss further pain control with them once their office opens in the morning. Return precautions discussed prior to ER departure Rosalba Disclaimer Rosalba Disclaimer This electronic medical record was generated, in whole or in part, using a voice recognition dictation system. Departure Departure: Impression: Primary Impression: Pain in a tooth or teeth Disposition: 01 HOME / SELF CARE / HOMELESS Condition: STABLE Referrals: KRYSTINA MOORE MD (PCP) Additional Instructions: You were seen for dental pain status post recent tooth extraction. There does not appear to be any infection at this time. Take Ibuprofen (600-800mg) and Tylenol (500-650mg) alternating every 4-6 hours to help with inflammation and pa in while you contact a dentist for further care. You should return to the ED if you develop worsening pain, fever > 101, swelling, redness, or any other new or concerning symptoms. Unfortunately, your pain is not likely to improve without seeing a dentist for further evaluation and treatment of your poor dentition and dental caries. Scripts Hydrocodone Bit/Acetaminophen (HYDROCODONE-APAP 5-325 ) 1 Each Tablet 1 TAB PO PRN Q6HRS PRN for PAIN, #4 TAB 0 Refills Prov: LYLE MCDONALD DO 04/19/21 LYLE MCDONALD DO Apr 19, 2021 10:28
[2021-04-19] MEDS ORDERED: HYDROcodone/APAP 5/325MG 1 TAB TABLET PO ONE (10:30)
== END 2021-04-19 10:40 | disposition home or self-care (01) ==
LOC: ER 09:24
DX: K08.89 Other specified disorders of teeth and supporting structures (principal); E11.9 Type 2 diabetes mellitus without complications; I10 Essential (primary) hypertension; Z88.5 Allergy status to narcotic agent; Z88.6 Allergy status to analgesic agent
CPT/HCPCS: 99283

== ENCOUNTER 2021-05-06 08:49 | Emergency (ER) | payer OTHER ==
[~2021-05-06] VITALS: Ht 160 cm; Wt 107.8 kg
[~2021-05-06 08:49] MED LIST changes: +HYDR-2155 PO
[2021-05-06 09:08] VITALS: BP 167/93
--- NOTE | 2021-05-06 09:19 | PHYS DOC ---
Past History Past Medical History: Diabetes, Hypertension Additional Past Medical Histor: FLUID RETENTION Past Surgical History: Cholecystectomy, Hysterectomy, Tonsillectomy Additional Past Surgical Histo: THYROID, D&C, R hand sx Smoking: Non-smoker Alcohol Use: None Drug Use: None Adult General Chief Complaint Chief Complaint: FLANK PAIN HPI HPI Patient is a 50-year-old female presenting for left flank and urinary symptoms. Reports she has had chronic left-sided flank pain that has been on and off for past year. Positional movements and twisting motions make worse, nothing known makes better. Also reports development of urinary symptoms such as dysuria and increased urinary frequency past 48 hours prompting her to come in for evaluation. Denies any vaginal bleeding or discharge, no history of kidney stones or other pertinent intra-abdominal abnormalities despite previously identified left-sided adrenal adenoma that she has not followed up for an outpatient setting Review of Systems Review of Systems Fourteen body systems of review of systems have been reviewed. See HPI for pertinent positives and negative responses, other watters all other systems are negative, non-pertinent or non-contributory Allergies Allergies Allergies Coded Allergies Type Severity Reaction Last Updated Verified codeine Allergy Intermediate 10/23/20 Yes oxycodone Allergy Intermediate hives/itch/and n/v. 10/23/20 Yes tramadol Allergy Intermediate hives 10/23/20 Yes I S O L A T I O N *CONTACT* Allergy Unknown 05/14/19 Yes Physical Exam Physical Exam Constitutional: Well developed, well nourished, no acute distress, non-toxic appearance. Appears under the influence of an opiate/benzodiazepine medication HENT: Normocephalic, atraumatic, bilateral external ears normal, oropharynx moist, no oral exudates, nose normal. Eyes: PERRLA, EOMI, conjunctiva normal, no discharge. Neck: Normal range of motion, no tenderness, supple, no stridor. Cardiovascular: Heart rate regular, sinus rhythm, no murmurs rubs or gallops Lungs & Thorax: Bilateral breath sounds clear to auscultation Abdomen: Bowel sounds normal, soft, generalized suprapubic and left flank pain present with palpation without guarding or rebound, no masses, no pulsatile masses. Nonsurgical abdomen, no peritoneal signs Skin: Warm, dry, no erythema, no rash. Back: No tenderness, left CVA tenderness. Extremities: No tenderness, no cyanosis, no clubbing, ROM intact, no edema. Neurologic: Alert and oriented X 3, grossly normal motor & sensory function, no focal deficits noted. Psychologic: Odd affect, judgement normal, mood normal. Psychomotor retardation present Current Patient Data Vital Signs Vital Signs Date Time Temp Pulse Resp B/P (MAP) Pulse Ox O2 Delivery O2 Flow Rate FiO2 05/06/21 09:08 98.3 79 16 167/93 (117) 95 Room Air EKG EKG [] Radiology/Procedures Radiology/Procedures CT ABDOMEN+PELVIS WO History: Left flank pain. Comparison: CT 01/12/2021 Technique: CT of the abdomen and pelvis without contrast. Findings: Mild dependent changes in the lung bases. No pleural effusion. Fluid attenuation cyst in the liver. The gallbladder is surgically absent. The pancreas, and spleen are unremarkable. There is redemonstration of a right adrenal nodule measuring 31 Hounsfield units, 1.9 cm diameter. There is no nephrolithiasis or hydronephrosis. No perinephric fat stranding. No ureteral stones. The bladder is unremarkable. The uterus is surgically absent. The stomach and small bowel are unremarkable. No colonic wall thickening or pericolonic inflammatory changes. Minimal descending-sigmoid colon diver ticulosis. No abdominopelvic free air or free fluid. Unenhanced vasculature is unremarkable. No adenopathy. Mild degenerative changes in the lumbar spine. No acute osseous abnormality. Soft tissues are unremarkable. Impression: 1. No acute findings in the abdomen and pelvis. No nephrolithiasis or hydronephrosis. 2. Redemonstrated 1.9 cm right adrenal nodule. Recommend MRI or CT adrenal protocol for complete characterization. 3. Mild diverticulosis without evidence of diverticulitis. Heart Score C/O Chest Pain: No Risk Factors: Risk Factors: DM, Current or recent (<one month) smoker, HTN, HLP, family history of CAD, obesity. Risk Scores: Risk Factors: DM, Current or recent (<one month) smoker, HTN, HLP, family history of CAD, obesity. Course & Med Decision Making Course & Med Decision Making ABCs unremarkable HPI physical exam and joint decision to pursue work-up consisting of urinalysis and CT abdomen pelvis performed concerning for UTI with consideration of pyelonephritis given potentially acute on chronic left flank pain I disclose little indication for further diagnostic work-up such as laboratory analysis at this time, patient agrees. Joint decision made to treat as if it was pyelonephritis with IM 1 g Rocephin and subsequent Omnicef prescription Patient has good access to primary care physician and so, close outpatient follow-up stressed. Strict return cautions discussed at length prior to ER departure Rosalba Disclaimer Rosalba Disclaimer This electronic medical record was generated, in whole or in part, using a voice recognition dictation system. Departure Departure: Impression: Primary Impression: UTI (urinary tract infection) Disposition: HOME / SELF CARE / HOMELESS Condition: STABLE Referrals: KRYSTINA MOORE MD (PCP) Patient Instructions: Urinary Tract Infection Additional Instructions: You were seen for a urinary tract infection. Please continue to take the antibiotics as prescribed. You should return to the ED if you develop worsening pain, fever, flank pain, or any other new or concerning symptoms. Follow up with primary care for further management if ongoing symptoms. Scripts Cefdinir (CEFDINIR) 300 Mg Capsule 1 CAP PO BID for uti, #14 CAP Prov: LYLE MCDONALD DO 05/06/21 LYLE MCDONALD DO May 06, 2021 09:19
--- NOTE | 2021-05-06 09:58 | RAD ---
CT ABDOMEN+PELVIS WO History: Left flank pain. Comparison: CT 01/12/2021 Technique: CT of the abdomen and pelvis without contrast. Findings: Mild dependent changes in the lung bases. No pleural effusion. Fluid attenuation cyst in the liver. The gallbladder is surgically absent. The pancreas, and spleen a re unremarkable. There is redemonstration of a right adrenal nodule measuring 31 Hounsfield units, 1. 9 cm diameter. There is no nephrolithiasis or hydronephrosis. No perinephric fat stranding. No ureter al stones. The bladder is unremarkable. The uterus is surgically absent. The stomach and small bowel are unremarkable. No colonic wall thickening or pericolonic inflammatory changes. Minimal descending-sigmoid colon diverticulosis. No abdominopelvic free air or free fluid. U nenhanced vasculature is unremarkable. No adenopathy. Mild degenerative changes in the lumbar spine. No acute osseous abnormality. Soft tissues are unremarkable. Impression: 1. No acute findings in the abdomen and pelvis. No nephrolithiasis or hydronephrosis. 2. Redemonstrated 1.9 cm right adrenal nodule. Recommend MRI or CT adrenal protocol for complete mikayla racterization. 3. Mild diverticulosis without evidence of diverticulitis. ------ Exposure: One or more of the following individualized dose reduction techniques were utilized for thi s examination: 1. Automated exposure control 2. Adjustment of the mA and/or kV according to patient size 3. Use of iterative reconstruction technique. Electronically signed by: Issac Joel MD (05/06/2021 9:56 AM) [id number]
[2021-05-06 11:07] LABS: AMPHETAMINE/METHAMPHETAMINE NEG (NEG); BARBITURATES NEG (NEG); BENZODIAZEPINES NEG (NEG); CANNABINOIDS POS (NEG); COCAINE NEG (NEG); METHADONE NEG (NEG); OPIATES POS (NEG); PHENCYCLIDINE NEG (NEG)
[2021-05-06 11:17] LABS: CLARITY,URINE HAZY; COLOR,URINE YELLOW; GLUCOSE,URINE NEG (NEG); NITRITE,URINE POS (NEG); RBC,URINE OCC /HPF (0-2); UROBILINOGEN,URINE 0.2 mg/dL (0.2 mg/dL)
[2021-05-06 11:18] LABS: BACTERIA,URINE MANY /HPF (0-FEW); SQUAMOUS EPITHELIAL CELL,UR MOD /LPF
[2021-05-06] MEDS ORDERED: CEFD300C PO (11:28)
[2021-05-06] MEDS ORDERED: cefTRIAXone IM 1 GM VIAL IM ONE (11:30)
== END 2021-05-06 11:57 | disposition home or self-care (01) ==
LOC: ER 08:49
DX: N39.0 Urinary tract infection, site not specified (principal); E11.9 Type 2 diabetes mellitus without complications; I10 Essential (primary) hypertension; Z90.49 Acquired absence of other specified parts of digestive tract; Z90.710 Acquired absence of both cervix and uterus; Z88.5 Allergy status to narcotic agent; Z91.041 Radiographic dye allergy status
CPT/HCPCS: 36415; 74176; 80307; 81001; 87077; 87086; 87186; 96372; 99284; J0696

== ENCOUNTER 2021-06-23 14:40 | Emergency (ER) | payer OTHER ==
[~2021-06-23] VITALS: Ht 160 cm; Wt 107.8 kg
[~2021-06-23 14:40] MED LIST changes: +CEFD300C PO
[2021-06-23 15:04] VITALS: BP 129/63
[2021-06-23] MEDS ORDERED: KETOROLAC 15 MG/ML VIAL. IVP ONE (15:15)
[2021-06-23] MEDS ORDERED: IV NORMAL SALINE 1,000ML 1,000 ML IV ONE (15:15)
--- NOTE | 2021-06-23 15:20 | PHYS DOC ---
Past History Past Medical History: Diabetes, Hypertension Additional Past Medical Histor: FLUID RETENTION Past Surgical History: Cholecystectomy, Hysterectomy, Tonsillectomy Additional Past Surgical Histo: THYROID, D&C, R hand sx Smoking: Non-smoker Alcohol Use: None Drug Use: None General Adult EDM: Chief Complaint: FLANK PAIN HPI: HPI: Patient is a 50-year-old female who presents with left-sided flank pain that radiates down to left lower quadrant. Patient states that she was seen a few months ago and told she had a cyst on her left kidney. Patient did not make a follow-up appointment as advised. Patient reports that her left flank pain started yesterday. Patient reports nausea. Denies vomiting, diarrhea, fever pain, shortness of breath. Review of Systems: Review of Systems: ROS At least 10 ROS systems have been reviewed and are negative except as documented in the HPI. General: Negative except as outlined in HPI above. Skin: Negative except as outlined in HPI above. HEENT: Negative except as outlined in HPI above. Neck: Negative except as outlined in HPI above. Respiratory: Negative except as outlined in HPI above.. Cardiovascular: Negative except as outlined in HPI above. Abdomen: Negative except as outlined in HPI above. : Negative except as outlined in HPI above. Back/MSK: Negative except as outlined in HPI above. Neuro: Negative except as outlined in HPI above. Psych: Negative except as outlined in HPI above. Allergies: Allergies: Allergies Coded Allergies Type Severity Reaction Last Updated Verified codeine Allergy Intermediate 10/23/20 Yes oxycodone Allergy Intermediate hives/itch/and n/v. 10/23/20 Yes tramadol Allergy Intermediate hives 10/23/20 Yes I S O L A T I O N *CONTACT* Allergy Unknown 05/14/19 Yes Physical Exam: PE: Constitutional: Well developed, well nourished, no acute distress, non-toxic appearance. [] HENT:bilateral external ears normal, no oral exudates, nose normal. [] Eyes: PERRLA,conjunctiva normal, no discharge. [] Neck: Normal range of motion, no tenderness, supple, no stridor. [] Cardiovascular:Heart rate regular rhythm, no murmur [] Lungs & Thorax: Bilateral breath sounds clear to auscultation [] Abdomen: Bowel sounds normal, soft, no tenderness, LLQ tenderness Skin: Warm, dry, no erythema, no rash. [] Back: No tenderness, left-sided CVA tenderness. [] Extremities: No tenderness, no cyanosis, no clubbing, ROM intact, no edema. [] Neurologic: Alert and oriented X 3, normal motor function, normal sensory function, no focal deficits noted. [] Psychologic: Affect normal, judgement normal, mood normal. [] Current Patient Data: Vital Signs: Vital Signs Date Time Temp Pulse Resp B/P (MAP) Pulse Ox O2 Delivery O2 Flow Rate FiO2 06/23/21 15:04 76 129/63 (85) 98 EKG: EKG: [] Radiology/Procedures: Radiology/Procedures: []CT ABDOMEN+PELVIS WO INDICATION: RIGHT FLANK PAIN / Spl. Instructions: / History: EXAM: Noncontrast CT of the abdomen and pelvis. Coronal and sagittal reformatted images were performed. PQRS compliance statement: One or more of the following individualized dose reduction techniques were utilized for this examination: 1. Automated exposure control 2. Adjustment of the mA and/or kV according to patient size 3. Use of iterative reconstruction technique COMPARISON: 05/06/2021 FINDINGS: No free air, free fluid, or fluid collection. Lower chest: The visualized lower lungs are aerated. No pleural or pericardial effusion. ABDOMEN: Liver: Stable right hepatic cyst. Gallbladder and biliary: Cholecystectomy. Normal caliber bile ducts. Spleen: Normal spleen. Pancreas: The noncontrast pancreas is homogeneous in attenuation without peripancreatic inflammatory changes. Adrenal glands: Stable right adrenal 1.8 cm nodule Kidneys and ureters: No opaque urinary calculi. Normal kidneys and ureters. GI tract: The stomach is decompressed and poorly evaluated. Normal caliber small bowel and colon. Appendix is not seen. Mild colonic diverticulosis. Vascular structures: Normal caliber abdominal aorta. Lymph nodes: No lymphadenopathy in the abdomen or pelvis. PELVIS: Genitourinary system: Normal bladder. Hysterectomy. SKELETAL STRUCTURES AND SOFT TISSUES: Degenerative changes of the spine IMPRESSION: No acute findings. No hydronephrosis or opaque urinary calculi Electronically signed by: Mohan Wolf MD (06/23/2021 3:55 PM) [facility] Heart Score: C/O Chest Pain: No Risk Factors: Risk Factors: DM, Current or recent (<one month) smoker, HTN, HLP, family history of CAD, obesity. Risk Scores: Score 0 - 3: 2.5% MACE over next 6 weeks - Discharge Home Score 4 - 6: 20.3% MACE over next 6 weeks - Admit for Clinical Observation Score 7 - 10: 72.7% MACE over next 6 weeks - Early Invasive Strategies Course & Med Decision Making: Course & Med Decision Making Pertinent Labs and Imaging studies reviewed. (See chart for details) [] Interval presents with left-sided flank pain that radiates to left lower quadrant. Work-up in ER consisted of CBC, CMP, urinalysis, CT abdomen pelvis. CT abdomen and pelvis shows no acute findings. CBC, CMP, urinalysis were all unremarkable. I discussed all results with patient. Advised patient to take ibuprofen and Tylenol at home for discomfort. Advised patient to call primary care physician and set up a follow-up appointment if pain does not resolve. Discussed return precautions at length with patient. Patient verbalizes unde rstanding of discharge instructions. Dragon Disclaimer: Dragon Disclaimer: This electronic medical record was generated, in whole or in part, using a voice recognition dictation system. Departure Departure: Impression: Primary Impression: Musculoskeletal back pain Disposition: HOME / SELF CARE / HOMELESS Condition: STABLE Referrals: KRYSTINA MOORE MD (PCP) Patient Instructions: Muscle Strain, [id number] Additional Instructions: You are seen in the emergency room for left-sided flank pain and lower abdominal pain. All of your labs and CT of abdomen pelvis were unremarkable. Urine was negative for infection. Most likely have a muscle strain which is causing your pain. Take ibuprofen and Tylenol at home for discomfort. I am sending you home with prescription for Flexeril to help with pain. Please make a follow-up appointment with your PCP for further management. Please return to emergency room if you have worsening symptoms or concerns. EMERGENCY DEPARTMENT GENERAL DISCHARGE INSTRUCTIONS Thank you for coming to [facility] (ED) today and trusting us with you care. We trust that you had a positivie experience in our Emergency Department. If you wish to speak to the department management, you may call the director at [phone]. YOUR FOLLOW UP INSTRUCTIONS ARE FOLLOWS: 1. Do you have a private Doctor? If you do not have a private doctor, please ask for a resource list of physicians or clinics that may be able to assist you with follow up care. 2. The Emergency Physician has interpreted your x-rays. The X-Ray specialist will also review them. If there is a change in the findings, you will be notified in 48 hours when at all possible. 3. A lab test or culture has been done, your results will be reviewed and you will be notified if you need a change in treatment. ADDITIONAL INSTRUCTIONS AND INFORMATION: 1. Your care today has been supervised by a physician who is specially trained in emergency care. Many problems require more than one evaluation for a complete diagnosis and treatment. We recommend that you schedule your follow up appointment as recommended to ensure complete treatment of you illness or injury. If you are unable to obtain follow up care and continue to have a problem, or if your condition worsens, we recommend that you return to the ED. 2. We are not able to safely determine your condition over the phone nor are we able to give sound medical advice over the phone. For these safety reasons, if you call for medical advice we will ask you to come to the ED for further evaluation. 3. If you have any questions regarding these discharge instructions please call the ED at [phone]. SAFETY INFORMATION: In the interest of safety, wellness, and injury prevention; we encourage you to wear your sealbelt, if you smoke; quite smoking, and we encourage family to use a protective helmet for bicycling and other sporting events that present an increased risk for head injury. IF YOUR SYMPTOMS WORSEN OR NEW SYMPTOMS DEVELOP, OR YOU HAVE CONCERNS ABOUT YOUR CONDITION; OR IF YOUR CONDITION WORSENS WHILE YOU ARE WAITING FOR YOUR FOLLOW UP APPOINTMENT; EITHER CONTACT YOUR PRIMARY CARE DOCTOR, THE PHYSICIAN WHOSE NAME AND NUMBER YOU WERE GIVEN, OR RETURN TO THE ED IMMEDIATELY. Scripts Cyclobenzaprine Hcl (CYCLOBENZAPRINE HCL) 10 Mg Tablet 1 TAB PO TID PRN PRN for PAIN for 7 Days, #21 TAB Prov: CASH MERAZ APRN 06/23/21 CASH MERAZ APRN Jun 23, 2021 15:20
--- NOTE | 2021-06-23 15:58 | RAD ---
CT ABDOMEN+PELVIS WO INDICATION: RIGHT FLANK PAIN / Spl. Instructions: / History: EXAM: Noncontrast CT of the abdomen and pelvis. Coronal and sagittal reformatted images were perform ed. PQRS compliance statement: One or more of the following individualized dose reduction techniques were utilized for this examinat ion: 1. Automated exposure control 2. Adjustment of the mA and/or kV according to patient size 3. Use of iterative reconstruction technique COMPARISON: 05/06/2021 FINDINGS: No free air, free fluid, or fluid collection. Lower chest: The visualized lower lungs are aerated. No pleural or pericardial effusion. ABDOMEN: Liver: Stable right hepatic cyst. Gallbladder and biliary: Cholecystectomy. Normal caliber bile ducts. Spleen: Normal spleen. Pancreas: The noncontrast pancreas is homogeneous in attenuation without peripancreatic inflammatory changes. Adrenal glands: Stable right adrenal 1.8 cm nodule Kidneys and ureters: No opaque urinary calculi. Normal kidneys and ureters. GI tract: The stomach is decompressed and poorly evaluated. Normal caliber small bowel and colon. Laura endix is not seen. Mild colonic diverticulosis. Vascular structures: Normal caliber abdominal aorta. Lymph nodes: No lymphadenopathy in the abdomen or pelvis. PELVIS: Genitourinary system: Normal bladder. Hysterectomy. SKELETAL STRUCTURES AND SOFT TISSUES: Degenerative changes of the spine IMPRESSION: No acute findings. No hydronephrosis or opaque urinary calculi Electronically signed by: Mohan Wolf MD (06/23/2021 3:55 PM) [facility]
[2021-06-23 16:23] LABS: BASO % 1 % (0-3); EOS % 1 % (0-3); HEMATOCRIT 38.4 % (36.0-47.0); HEMOGLOBIN 12.9 g/dL (12.0-15.5); LYMPH # 1.5 x10^3/uL (1.0-4.8); LYMPH % 31 % (24-48); MEAN CORPUSCULAR HEMOGLOBIN 29 pg (25-35); MEAN CORPUSCULAR HGB CONC 34 g/dL (31-37); MEAN CORPUSCULAR VOLUME 87 fL (79-100); MONO # 0.4 x10^3/uL (0.0-1.1); MONO % 7 % (0-9); NEUT # 2.9 x10^3uL (1.8-7.7); NEUT % 60 % (31-73); PLATELET COUNT 253 x10^3/uL (140-400); RED BLOOD COUNT 4.44 x10^6/uL (3.50-5.40); RED CELL DISTRIBUTION WIDTH 15.5 % (11.5-14.5); WHITE BLOOD COUNT 4.9 x10^3/uL (4.0-11.0)
[2021-06-23] MEDS ORDERED: MORPHINE SULFATE 4 MG/ML DISP.SYRIN. IV ONE (16:30)
[2021-06-23 16:32] LABS: CALCIUM 8.3 mg/dL (8.5-10.1); GFR 71.3; POTASSIUM 3.6 mmol/L (3.5-5.1)
[2021-06-23 16:39] LABS: ALBUMIN/GLOBULIN RATIO 0.8 (1.0-1.7); TOTAL BILIRUBIN 0.2 mg/dL (0.2-1.0)
[2021-06-23 17:14] LABS: BACTERIA,URINE 0 /HPF (0-FEW); CLARITY,URINE CLEAR; COLOR,URINE YELLOW; GLUCOSE,URINE NEG (NEG); NITRITE,URINE NEG (NEG); RBC,URINE OCC /HPF (0-2); SQUAMOUS EPITHELIAL CELL,UR MOD /LPF; UROBILINOGEN,URINE 0.2 mg/dL (0.2 mg/dL); WBC,URINE OCC /HPF (0-4)
[2021-06-23] MEDS ORDERED: CYCL10TA19 PO (17:31)
== END 2021-06-23 18:00 | disposition home or self-care (01) ==
LOC: ER 14:40
DX: M54.89 Other dorsalgia (principal); R10.9 Unspecified abdominal pain; R11.0 Nausea; E11.9 Type 2 diabetes mellitus without complications; I10 Essential (primary) hypertension; Z90.49 Acquired absence of other specified parts of digestive tract; Z90.710 Acquired absence of both cervix and uterus; Z88.5 Allergy status to narcotic agent; Z88.8 Allergy status to other drugs, medicaments and biological substances
CPT/HCPCS: 36415; 74176; 80053; 81001; 83690; 83735; 85025; 96361; 96374; 96375; 99284; J1885; J2270; J7030

== ENCOUNTER 2021-06-28 18:36 | Emergency (ER) | payer OTHER ==
[~2021-06-28] VITALS: Ht 160 cm; Wt 107.8 kg
[2021-06-28 20:13] VITALS: BP 132/67
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
[2021-06-28 20:47] LABS: BACTERIA,URINE 0 /HPF (0-FEW); CLARITY,URINE CLEAR; COLOR,URINE YELLOW; GLUCOSE,URINE NEG (NEG); NITRITE,URINE NEG (NEG); RBC,URINE 0 /HPF (0-2); SQUAMOUS EPITHELIAL CELL,UR OCC /LPF; UROBILINOGEN,URINE 0.2 mg/dL (0.2 mg/dL); WBC,URINE 0 /HPF (0-4)
[2021-06-28 20:48] LABS: BARBITURATES NEG (NEG); BENZODIAZEPINES NEG (NEG); CANNABINOIDS POS (NEG); COCAINE NEG (NEG); METHADONE NEG (NEG); PHENCYCLIDINE NEG (NEG)
[2021-06-28 20:49] LABS: AMPHETAMINE/METHAMPHETAMINE NEG (NEG)
[2021-06-28] MEDS ORDERED: KETOROLAC 30 MG/ML VIAL. IVP ONE (21:30)
[2021-06-28] MEDS ORDERED: FAMOTIDINE 20 MG/2 ML VIAL IVP ONE (21:30)
[2021-06-28] MEDS ORDERED: IV RINGERS SOLUTION,LACTATED 1,000 ML IV SCH (21:30)
[2021-06-28] MEDS ORDERED: ONDANSETRON PF 4 MG/2 ML VIAL. IVP ONE (21:30)
[2021-06-28] MEDS ORDERED: MAGNESIUM HYDROXIDE 2,400 MG/30 ML ORAL.SUSP. PO ONE (21:30)
[2021-06-28 21:34] LABS: BASO % 1 % (0-3); EOS # 0.1 x10^3/uL (0.0-0.7); EOS % 3 % (0-3); HEMATOCRIT 33.9 % (36.0-47.0); HEMOGLOBIN 11.5 g/dL (12.0-15.5); LYMPH # 1.9 x10^3/uL (1.0-4.8); LYMPH % 32 % (24-48); MEAN CORPUSCULAR HEMOGLOBIN 30 pg (25-35); MEAN CORPUSCULAR HGB CONC 34 g/dL (31-37); MEAN CORPUSCULAR VOLUME 87 fL (79-100); MONO # 0.4 x10^3/uL (0.0-1.1); MONO % 8 % (0-9); NEUT # 3.3 x10^3uL (1.8-7.7); NEUT % 57 % (31-73); PLATELET COUNT 279 x10^3/uL (140-400); RED BLOOD COUNT 3.88 x10^6/uL (3.50-5.40); RED CELL DISTRIBUTION WIDTH 15.7 % (11.5-14.5); WHITE BLOOD COUNT 5.8 x10^3/uL (4.0-11.0)
[2021-06-28 21:38] LABS: ANION GAP 3 (6-14); BLOOD UREA NITROGEN 10 mg/dL (7-20); CALCIUM 8.1 mg/dL (8.5-10.1); CARBON DIOXIDE 29 mmol/L (21-32); CHLORIDE 108 mmol/L (98-107); GFR 71.3; GLUCOSE 107 mg/dL (70-99); POTASSIUM 3.5 mmol/L (3.5-5.1); SODIUM 140 mmol/L (136-145)
[2021-06-28 21:45] LABS: ALBUMIN 2.8 g/dL (3.4-5.0); ALK PHOS 85 U/L (46-116); ALT (SGPT) 36 U/L (14-59); AST (SGOT) 22 U/L (15-37); LIPASE 55 U/L (73-393); TOTAL BILIRUBIN 0.1 mg/dL (0.2-1.0); TOTAL PROTEIN 6.1 g/dL (6.4-8.2)
[2021-06-28 21:46] LABS: INFLUENZA A PATIENT NEGATIVE (NEGATIVE); INFLUENZA B PATIENT NEGATIVE (NEGATIVE)
[2021-06-28 21:53] LABS: DIRECT BILIRUBIN < 0.1 mg/dL (0.0-0.2)
--- NOTE | 2021-06-28 22:55 | EKG ---
[address] [address] Test Date: 2021-06-28 Test Time: 21:20:20 Pat Name: SOHAIL GARCIA Department: Room: Gender: F Rn Team Leader: : 1970 Requested By: VALORIE HUGHES Order Number: [id number] Reading MD: Alex Acosta Measurements Intervals [place]y Rate: 61 P: 39 UT: 144 QRS: 24 QRSD: 96 T: 23 QT: 480 QTc: 490 Interpretive Statements SINUS RHYTHM PROLONGED QT Electronically Signed On 07-01-2021 17:13:38 CDT by Alex Acosta
[2021-06-28] MEDS ORDERED: MORPHINE SULFATE 10 MG/ML SYRINGE. SQ ONE (23:00)
[2021-06-28] MEDS ORDERED: MAGNESIUM CITRATE 296 ML SOLUTION. PO ONE (23:00)
--- NOTE | 2021-06-28 23:45 | RAD ---
Study: XR ABDOMEN COMP ACUTE Indication: Severe left flank and abdominal pain. Comparison: Chest radiograph from 08/31/2020; CT abdomen/pelvis from 06/23/2021 Findings: The cardiomediastinal silhouette and tatum are within normal limits. No localized airspace opacity, pl eural effusion or pneumothorax. Mild basilar atelectasis. The bowel gas pattern is nonobstructive. Mild/moderate volume colonic stool burden. No radiographic e vidence for pneumoperitoneum. Several pelvic phleboliths. Cystectomy clips. No focus of mineralizatio n seen projecting over the kidneys. Incomplete assessment of the osseous structures with some degenerative changes. Impression: 1. No acute radiographic abnormality of the chest. 2. Nonobstructive bowel gas pattern. Mild/moderate constipation. 3. No radiographic evidence for a kidney stone. Electronically signed by: IVONNE HUDSON MD (06/28/2021 11:43 PM) [facility]
== END 2021-06-28 22:51 | disposition home or self-care (01) ==
LOC: ER 18:36
DX: K59.00 Constipation, unspecified (principal); E46 Unspecified protein-calorie malnutrition; F41.9 Anxiety disorder, unspecified; F32.9 Major depressive disorder, single episode, unspecified; I10 Essential (primary) hypertension; E11.9 Type 2 diabetes mellitus without complications; Z20.822 Contact with and (suspected) exposure to COVID-19; Z90.49 Acquired absence of other specified parts of digestive tract; Z68.41 Body mass index [BMI] 40.0-44.9, adult; Z90.710 Acquired absence of both cervix and uterus; Z88.5 Allergy status to narcotic agent; Z88.6 Allergy status to analgesic agent
CPT/HCPCS: 36415; 74022; 80048; 80076; 80307; 81001; 82550; 83690; 84484; 85025; 85610; 85730; 87428; 93005; 96361; 96372; 96374; 96375; 99285; C9803; J1885; J2270; J2405; J3490; J7120; U0003

== ENCOUNTER 2021-07-21 16:37 | Emergency (ER) | payer OTHER ==
[~2021-07-21] VITALS: Ht 160 cm; Wt 107.8 kg
--- NOTE | 2021-07-21 17:01 | PHYS DOC ---
Past History Past Medical History: Anxiety, Depression, Diabetes, Hypertension Additional Past Medical Histor: FLUID RETENTION Past Surgical History: Cholecystectomy, Hysterectomy, Tonsillectomy Additional Past Surgical Histo: THYROID, D&C, R hand sx Smoking: Non-smoker Alcohol Use: None Drug Use: None Adult General Chief Complaint Chief Complaint: SORE THROAT HPI HPI Patient is a 50 year old female who presents with complaint of sore throat and ear pain. The patient states that the symptoms started yesterday. Notes continued congestion, runny nose, and sore throat symptoms throughout the day today. Denies fever or body aches. Patient has been seen in the emergency department on multiple occasions for multiple complaints. She is currently following with her primary care provider and is going to see a gastroenterology specialist regarding recurrent ongoing left-sided abdominal pain. Patient also notes that she has been having chronic ongoing problems with right wrist pain that has been ongoing for some time. She states that she would like to have an Hola bandage for her wrist as her wrist splint broke down and is not helping her at this time. She states however that her primary concern today is her throat and ears. Denies any known sick contacts. Denies fever, shortness of breath, chest pain, abdominal pain, or vomiting. Review of Systems Review of Systems Constitutional: Denies fever or chills [] Eyes: Denies change in visual acuity, redness, or eye pain [] HENT: Sore throat, nasal congestion, ear pain [] Respiratory: Denies cough or shortness of breath [] Cardiovascular: Denies chest pain or edema [] GI: Chronic abdominal pain, denies nausea, vomiting, bloody stools or diarrhea [] : Denies dysuria or hematuria [] Musculoskeletal: Chronic right wrist pain [] Integument: Denies rash or skin lesions [] Neurologic: Denies headache, focal weakness or sensory changes [] All other systems were reviewed and found to be within normal limits, except as documented in this note. Allergies Allergies Allergies Coded Allergies Type Severity Reaction Last Updated Verified codeine Allergy Intermediate 07/21/21 Yes oxycodone Allergy Intermediate hives/itch/and n/v. 07/21/21 Yes tramadol Allergy Intermediate hives 07/21/21 Yes I S O L A T I O N *CONTACT* Allergy Unknown 07/21/21 Yes Physical Exam Physical Exam Constitutional: Alert, afebrile, no acute distress. [] HENT: Normocephalic, atraumatic, bilateral external ears normal, oropharynx erythematous, no oral exudates, boggy nasal mucosa bilaterally, clear rhinorrh ea. [] Eyes: PERRLA, EOMI, conjunctiva normal, no discharge. [] Neck: Normal range of motion, no tenderness, supple, no stridor. [] Cardiovascular:Heart rate regular rhythm, no murmur [] Lungs & Thorax: Bilateral breath sounds clear to auscultation [] Abdomen: Bowel sounds normal, soft, no masses, no pulsatile masses. [] Skin: Warm, dry, no erythema, no rash. [] Back: No tenderness, no CVA tenderness. [] Extremities: No tenderness, no cyanosis, no clubbing, ROM intact, no edema. [] Neurologic: Alert and oriented X 3, normal motor function, normal sensory function, no focal deficits noted. [] Current Patient Data Vital Signs Vitals were reviewed and are stable Lab Results Laboratory Tests Test 07/21/21 17:05 Group A Streptococcus Rapid Negative EKG EKG Not performed [] Radiology/Procedures Radiology/Procedures Not performed [] Heart Score C/O Chest Pain: No Risk Factors: Risk Factors: DM, Current or recent (<one month) smoker, HTN, HLP, family history of CAD, obesity. Risk Scores: Risk Factors: DM, Current or recent (<one month) smoker, HTN, HLP, family history of CAD, obesity. Course & Med Decision Making Course & Med Decision Making Pertinent Labs and Imaging studies reviewed. (See chart for details) Strep testing was found to be negative in the emergency department. Patient given one-time dose of oral Decadron. Recommend use of Flonase and nasal saline for treatment of nasal congestion. Sore throat symptoms likely secondary to postnasal drip. Recommend follow-up with primary doctor in the next 2 to 3 days for reevaluation and return to the emergency department for any worsening symptoms. [] Dragon Disclaimer Dragon Disclaimer This electronic medical record was generated, in whole or in part, using a voice recognition dictation system. Departure Departure: Impression: Primary Impression: Sore throat Additional Impression: Allergic rhinitis Disposition: HOME / SELF CARE / HOMELESS Condition: STABLE Referrals: KRYSTINA MOORE MD (PCP) Patient Instructions: Allergic Rhinitis, Sore Throat Additional Instructions: You may use Flonase as well as nasal saline [id number] to help with your nasal congestion symptoms. This is likely worsening your sore throat symptoms. Follow-up closely with your primary doctor in 2 to 3 days for reevaluation. Return to the emergency department for any worsening symptoms. Problem Qualifiers Additional Impression: Allergic rhinitis Allergic rhinitis trigger: unspecified Allergic rhinitis seasonality: unspecified Qualified Codes: J30.9 - Allergic rhinitis, unspecified TEAGAN DU MD July 21, 2021 17:01
[2021-07-21] MEDS ORDERED: KETOROLAC 30 MG/ML VIAL. ONE (17:57)
[2021-07-21] MEDS ORDERED: DEXAMETHASONE 4 MG TABLET PO ONE (18:00)
[2021-07-21] MEDS ORDERED: KETOROLAC 60 MG/2 ML VIAL. IM ONE (18:00)
[2021-07-21 18:13] VITALS: BP 168/104
== END 2021-07-21 18:15 | disposition home or self-care (01) ==
LOC: ER 16:37
DX: J30.9 Allergic rhinitis, unspecified (principal); J02.9 Acute pharyngitis, unspecified; E11.9 Type 2 diabetes mellitus without complications; I10 Essential (primary) hypertension; Z88.5 Allergy status to narcotic agent; Z88.8 Allergy status to other drugs, medicaments and biological substances
CPT/HCPCS: 87070; 87880; 96372; 99283; J1885; J8540

== ENCOUNTER 2021-07-24 11:05 | Emergency (ER) | payer OTHER ==
[~2021-07-24] VITALS: Ht 160 cm; Wt 107.8 kg
[2021-07-24 11:23] VITALS: BP 171/85
[2021-07-24] MEDS ORDERED: IV NORMAL SALINE 1,000ML 1,000 ML IV ONE (11:30)
[2021-07-24] MEDS ORDERED: ONDANSETRON PF 4 MG/2 ML VIAL. IVP ONE (11:30)
[2021-07-24] MEDS ORDERED: HYDR-2759 PO (11:32)
[2021-07-24] MEDS ORDERED: AMOX1TAB61 PO (11:32)
--- NOTE | 2021-07-24 11:35 | PHYS DOC ---
Past History Past Medical History: Anxiety, Depression, Diabetes, Hypertension Additional Past Medical Histor: FLUID RETENTION Past Surgical History: Cholecystectomy, Hysterectomy, Tonsillectomy Additional Past Surgical Histo: THYROID, D&C, R hand sx Smoking: Non-smoker Alcohol Use: None Drug Use: None General Adult EDM: Chief Complaint: DENTAL PROBLEM HPI: HPI: 50-year-old female presents with right lower dental pain. The patient was eating yesterday and she felt a piece of the tooth break off. Since that time, she has had aching pain in the lower right part of her mouth. She called her dentist but they cannot get her in until Tuesday, 4 days from now. They advised that she come to the emergency room for antibiotics and pain control. Patient has no other complaints this time. Review of Systems: Review of Systems: Constitutional: Denies fever or chills Eyes: Denies change in visual acuity HENT: Dental pain Respiratory: Denies cough or shortness of breath Cardiovascular: Denies chest pain or edema GI: Denies abdominal pain, nausea, vomiting, bloody stools or diarrhea : Denies dysuria Musculoskeletal: Denies back pain or joint pain Integument: Denies rash Neurologic: Denies headache, focal weakness or sensory changes Endocrine: Denies polyuria or polydipsia Lymphatic: Denies swollen glands Psychiatric: Denies depression or anxiety Current Medications: Current Meds: Current Medications Medications (Trade) Dose Ordered Sig/Jennifer Start Time Stop Time Status Last Admin Dose Admin Ondansetron HCl (Zofran) 4 mg 1X ONCE 07/24/21 11:30 07/24/21 11:31 Sodium Chloride 1,000 ml @ 1,000 mls/hr 1X ONCE 07/24/21 11:30 07/24/21 12:29 Allergies: Allergies: Allergies Coded Allergies Type Severity Reaction Last Updated Verified codeine Allergy Intermediate 07/21/21 Yes oxycodone Allergy Intermediate hives/itch/and n/v. 07/21/21 Yes tramadol Allergy Intermediate hives 07/21/21 Yes I S O L A T I O N *CONTACT* Allergy Unknown 07/21/21 Yes Physical Exam: PE: Constitutional: Well developed, well nourished, no acute distress, non-toxic appearance. [] HENT: Normocephalic, atraumatic, bilateral external ears normal, oropharynx moist, no oral exudates, nose normal. Fractured tooth to the right tooth #32.[] Eyes: PERRLA, EOMI, conjunctiva normal, no discharge. [] Neck: Normal range of motion, no tenderness, supple, no stridor. [] Cardiovascular: Heart rate regular rhythm, no murmur [] Lungs & Thorax: Bilateral breath sounds clear to auscultation [] Abdomen: Bowel sounds normal, soft, no tenderness, no masses, no pulsatile masses. [] Skin: Warm, dry, no erythema, no rash. [] Back: No tenderness, no CVA tenderness. [] Extremities: No tenderness, no cyanosis, no clubbing, ROM intact, no edema. [] Neurologic: Alert and oriented X 3, normal motor function, normal sensory function, no focal deficits noted. [] Psychologic: Affect normal, judgement normal, mood normal. [] EKG: EKG: [] Radiology/Procedures: Radiology/Procedures: [] Heart Score: C/O Chest Pain: N/A Risk Factors: Risk Factors: DM, Current or recent (<one month) smoker, HTN, HLP, family history of CAD, obesity. Risk Scores: Score 0 - 3: 2.5% MACE over next 6 weeks - Discharge Home Score 4 - 6: 20.3% MACE over next 6 weeks - Admit for Clinical Observation Score 7 - 10: 72.7% MACE over next 6 weeks - Early Invasive Strategies Course & Med Decision Making: Course & Med Decision Making Pertinent Labs and Imaging studies reviewed. (See chart for details) The patient does have a fractured tooth. I have advised her to go to the pharmacy and try dental putty. I will place her on Augmentin for infection prophylaxis and I will give her a short course of [place] for pain. She is stable for discharge at this time. [] Dragon Disclaimer: Dragon Disclaimer: This electronic medical record was generated, in whole or in part, using a voice recognition dictation system. Departure Departure: Impression: Primary Impression: Tooth fracture Disposition: HOME / SELF CARE / HOMELESS Condition: STABLE Referrals: KRYSTINA MOORE MD (PCP) Patient Instructions: Dental Pain, [id number] Scripts Hydrocodone/Acetaminophen (Hydrocodone-Acetamin 5-325 mg) 1 Each Tablet 1 EACH PO Q4-6HRS PRN for PAIN, #10 TAB Prov: PAWAN GAMBOA DO 07/24/21 Amoxicillin/Potassium Clav (AUGMENTIN 875-125 TABLET) 1 Each Tablet 1 TAB PO BID for dental fracture for 7 Days, #14 TAB 0 Refills Prov: PAWAN GAMBOA DO 07/24/21 PAWAN GAMBOA DO July 24, 2021 11:35
== END 2021-07-24 11:41 | disposition home or self-care (01) ==
LOC: ER 11:05
DX: S02.5XXA Fracture of tooth (traumatic), initial encounter for closed fracture (principal); E11.9 Type 2 diabetes mellitus without complications; I10 Essential (primary) hypertension; Z88.5 Allergy status to narcotic agent; Z88.8 Allergy status to other drugs, medicaments and biological substances; X58.XXXA Exposure to other specified factors, initial encounter; Y93.89 Activity, other specified; Y92.89 Other specified places as the place of occurrence of the external cause; Y99.8 Other external cause status
CPT/HCPCS: 99283